=== PATIENT | female | born 1945 | race Caucasian/White ===

== ENCOUNTER 2016-10-07 15:41 | Inpatient (IN) | payer MEDICARE, MEDICAID ==
[~2016-10-07] VITALS: Ht 165.1 cm; Wt 99.8 kg
[2016-10-07 16:09] LABS: BASOPHILS % (AUTO) 0.5 % (0.0-2.0); LYMPHOCYTES % (AUTO) 21.5 % (20.0-45.0); MEAN CORPUSCULAR HEMOGLOBIN 28.9 PG (27.0-31.0); MEAN CORPUSCULAR HGB CONC 31.8 G/DL (32.0-36.0); MEAN CORPUSCULAR VOLUME 91 FL (80-99); MEAN PLATELET VOLUME 7.1 FL (6.5-10.1); MONOCYTES % (AUTO) 10.6 % (1.0-10.0); NEUTROPHILS % (AUTO) 67.5 % (45.0-75.0); PLATELET COUNT 147 K/UL (150-450); WHITE BLOOD COUNT 8.7 K/UL (4.8-10.8)
[2016-10-07 16:15] VITALS: BP 106/54
--- NOTE | 2016-10-07 16:15 | Emergency Room Report ---
History of Present Illness General Chief Complaint: Dyspnea/Respdistress Source: Patient, Medical Record, EMS Present Illness HPI This patient is brought in by EMS from a custodial facility. She presents for coughing and apparently she had a desaturation at the senior living. The patient complains of an ongoing cough. There is no fever or chills. There is no nausea or vomiting. There is no chest pain. Patient does have a history of schizoaffective, type 2 diabetes, schizophrenia. There is no other history available. Allergies: Coded Allergies: PENICILLINS (Verified Allergy, Unknown, 10/07/16) Patient History Past Medical History: see triage record, DM, HTN, psych hx Social History: Denies: alcohol use, drug use, smoking Reviewed Nursing Documentation: PMH: Agreed, PSxH: Agreed Nursing Documentation-PMH Hx Hypertension: Yes Hx Diabetes: Yes History Of Psychiatric Problem: Yes - Schizoaffective, paranoidschizophrenia Review of Systems All Other Systems: negative except mentioned in HPI Physical Exam Vital Signs Date Time Temp Pulse Resp B/P Pulse Ox O2 Delivery O2 Flow Rate FiO2 10/07/16 15:35 98.4 132 24 119/72 96 Nasal Cannula 4.0 Sp02 EP Interpretation: reviewed, abnormal General Appearance: no apparent distress, alert, GCS 15, non-toxic Head: normocephalic, atraumatic Eyes: bilateral eye PERRL, bilateral eye normal inspection ENT: hearing grossly normal, normal pharynx, no angioedema, normal voice Neck: full range of motion, supple/symm/no masses Respiratory: chest non-tender, lungs clear, normal breath sounds, speaking full sentences Cardiovascular #1: no edema, tachycardia Gastrointestinal: normal bowel sounds, non tender, soft, non-distended, no guarding, no rebound Rectal: deferred Musculoskeletal: back normal, normal range of motion, non-tender Neurologic: alert, oriented x3, responsive, motor strength/tone normal, speech normal Psychiatric: mood/affect normal, no suicidal/homicidal ideation Skin: normal color, no rash, warm/dry, well hydrated Medical Decision Making Diagnostic Impression: Primary Impression: Elevated troponin Additional Impression: NSTEMI (non-ST elevated myocardial infarction) ER Course This patient presents with complaint of cough. However, the custodial facility was concerned about low oxygen saturation and difficulty breathing. Patient is found to be slightly tachycardic. She did not have any desaturations or evidence of respiratory distress. However, she did have an elevated troponin. She was given aspirin. Chest x-ray did not show any evidence of pathology. Laboratory workup only showed the elevated troponin and no elevated white blood cell count. Although the patient complained of cough, there is no evidence of pneumonia. Given the tachycardia, possible oxygen desaturation and history of possible difficulty breathing, I felt I should obtain a CT chest to assess for PE. CT showed no e/o PE. She is admitted for NSTEMI. Labs Test 10/07/16 15:55 10/07/16 16:52 White Blood Count 8.7 K/UL (4.8-10.8) Red Blood Count 4.30 M/UL (4.20-5.40) Hemoglobin 12.5 G/DL (12.0-16.0) Hematocrit 39.2 % (37.0-47.0) Mean Corpuscular Volume 91 FL (80-99) Mean Corpuscular Hemoglobin 28.9 PG (27.0-31.0) Mean Corpuscular Hemoglobin Concent 31.8 G/DL (32.0-36.0) Red Cell Distribution Width 13.0 % (11.6-14.8) Platelet Count 147 K/UL (150-450) Mean Platelet Volume 7.1 FL (6.5-10.1) Neutrophils (%) (Auto) 67.5 % (45.0-75.0) Lymphocytes (%) (Auto) 21.5 % (20.0-45.0) Monocytes (%) (Auto) 10.6 % (1.0-10.0) Eosinophils (%) (Auto) 0.0 % (0.0-3.0) Basophils (%) (Auto) 0.5 % (0.0-2.0) Prothrombin Time 10.2 SEC (9.30-11.50) Prothromb Time International Ratio 1.0 (0.9-1.1) Activated Partial Thromboplast Time 26 SEC (23-33) Sodium Level 145 mEQ/L (135-145) Potassium Level 3.8 mEQ/L (3.4-4.9) Chloride Level 103 mEQ/L (98-107) Carbon Dioxide Level 27 mEQ/L (20-30) Anion Gap 15 (5-15) Blood Urea Nitrogen 26 mg/dL (7-23) Creatinine 0.9 mg/dL (0.5-0.9) Estimat Glomerular Filtration Rate > 60 mL/min (>60) Glucose Level 110 mg/dL (74-106) Calcium Level 8.7 mg/dL (8.6-10.2) Total Bilirubin 0.3 mg/dL (0.0-1.2) Aspartate Amino Transf (AST/SGOT) 21 U/L (5-40) Alanine Aminotransferase (ALT/SGPT) 18 U/L (3-33) Alkaline Phosphatase 62 U/L (35-104) Total Creatine Kinase 226 U/L (26-140) Creatine Kinase MB 2.9 ng/mL (< 3.8) Creatine Kinase MB Relative Index 1.2 Troponin I 0.88 ng/mL (<=0.30) Pro-B-Type Natriuretic Peptide 356 pg/mL (0-125) Total Protein 6.1 g/dL (6.6-8.7) Albumin 3.7 g/dL (3.5-5.2) Globulin 2.4 g/dL Albumin/Globulin Ratio 1.5 (1.0-2.7) Thyroid Stimulating Hormone (TSH) 1.270 uIU/mL (0.300-4.500) Free Thyroxine 0.84 ng/dL (0.86-1.85) Free Triiodothyronine 1.9 pg/mL (2.3-4.2) Urine Color Yellow Urine Appearance Clear Urine pH 5 (4.5-8.0) Urine Specific [place] 1.020 (1.005-1.035) Urine Protein 2+ (NEGATIVE) Urine Glucose (UA) Negative (NEGATIVE) Urine Ketones 1+ (NEGATIVE) Urine Occult Blood Negative (NEGATIVE) Urine Nitrite Negative (NEGATIVE) Urine Bilirubin Negative (NEGATIVE) Urine Urobilinogen Normal MG/DL (0.0-1.0) Urine Leukocyte Esterase Negative (NEGATIVE) Urine RBC 0-2 /HPF (0 - 2) Urine WBC 0-2 /HPF (0 - 2) Urine Squamous Epithelial Cells None /LPF (NONE/OCC) Urine Amorphous Sediment Few /LPF (NONE) Urine Bacteria Few /HPF (NONE) EKG Diagnostic Results Rate: tachycardiac ST Segments: no acute changes Other Impression S.tachycardia Rhythm Strip Diag. Results EP Interpretation: yes Rate: 120's Rhythm: no PVC's, no ectopy Other Impression S.tachycardia Chest X-Ray Diagnostic Results EP Interpretation: Yes Findings: no consolidation, no effusion, no pneumothorax, no acute cardiopulmonary disease Number of Views: 1 Other Impression limited by low inspiration. CT/MRI/US Diagnostic Results CT/MRI/US Diagnostic Results : Imaging Test Ordered: CT chest Impression No PE. See official report in EMR. Last Vital Signs Date Time Temp Pulse Resp B/P Pulse Ox O2 Delivery O2 Flow Rate FiO2 10/07/16 15:35 98.4 132 24 119/72 96 Nasal Cannula 4.0 Disposition: ADMITTED INPATIENT Condition: Serious Referrals: Daniel Hamlin MD (PCP) LEONARDO RIVERA D.O. Oct 07, 2016 16:15
[2016-10-07 16:16] LABS: PROTHROMBIN TIME 10.2 SEC (9.30-11.50)
[2016-10-07 16:34] LABS: ALANINE AMINOTRANSFERASE 18 U/L (3-33); ALBUMIN/GLOBULIN RATIO 1.5 (1.0-2.7); ANION GAP 15 (5-15); ASPARTATE AMINO TRANSFERASE 21 U/L (5-40); CALCIUM 8.7 mg/dL (8.6-10.2); CARBON DIOXIDE 27 mEQ/L (20-30); CHLORIDE 103 mEQ/L (98-107); CREATININE 0.9 mg/dL (0.5-0.9); GLOMERULAR FILTRATION RATE > 60 mL/min (>60); HEMOLYSIS 18; POTASSIUM 3.8 mEQ/L (3.4-4.9); SODIUM 145 mEQ/L (135-145); TOTAL PROTEIN 6.1 g/dL (6.6-8.7)
[2016-10-07 16:35] LABS: TROPONIN I 0.88 ng/mL (<=0.30)
[2016-10-07 16:45] LABS: CKMB 2.9 ng/mL (< 3.8)
[2016-10-07 17:06] LABS: FREE T3 1.9 pg/mL (2.3-4.2); THYROID STIMULATING HORMONE 1.27 uIU/mL (0.300-4.500)
[2016-10-07] MEDS ORDERED: Aspirin Baby 81mg ORAL ONE (17:15)
[2016-10-07 17:23] LABS: APPEARANCE,URINE CLEAR; KETONES,URINE 1+ (NEGATIVE); LEUKOCYTE ESTERASE ,URINE NEGATIVE (NEGATIVE); NITRITE,URINE NEGATIVE (NEGATIVE); PH,URINE 5 (4.5-8.0); PROTEIN,URINE 2+ (NEGATIVE); UROBILINOGEN,URINE NORMAL MG/DL (0.0-1.0)
[2016-10-07 17:33] LABS: RBC,URINE 0-2 /HPF (0 - 2); WBC,URINE 0-2 /HPF (0 - 2)
[2016-10-07 17:36] LABS: AMORPHOUS SEDIMENT,UR FEW /LPF; BACTERIA,URINE FEW /HPF
[2016-10-07] MEDS ORDERED: ATORVASTATIN CA20 MG ORAL (18:24)
[2016-10-07] MEDS ORDERED: LEVOTHYROXINE75 MCG ORAL (18:24)
[2016-10-07] MEDS ORDERED: QUETIAPINE FUMA25 MG ORAL (18:24)
[2016-10-07] MEDS ORDERED: COLACE100 MG ORAL (18:24)
[2016-10-07] MEDS ORDERED: NEURONTIN400 MG ORAL (18:24)
[2016-10-07] MEDS ORDERED: LISINOPRIL10 MG ORAL (18:24)
[2016-10-07] MEDS ORDERED: DEPAKOTE250 MG PO (18:24)
[2016-10-07 18:27] VITALS: BP 110/61
[2016-10-07 20:00] VITALS: BP 117/70
[2016-10-07] MEDS ORDERED: Nitroglycerin Subl 0.4mg tab (Bottle Of 25) SL PRN (20:30)
[2016-10-07 22:00] LABS: BASOPHILS % (AUTO) 0.6 % (0.0-2.0); LYMPHOCYTES % (AUTO) 25.2 % (20.0-45.0); MEAN CORPUSCULAR HEMOGLOBIN 28.6 PG (27.0-31.0); MEAN CORPUSCULAR HGB CONC 30.5 G/DL (32.0-36.0); MEAN CORPUSCULAR VOLUME 94 FL (80-99); MEAN PLATELET VOLUME 6.9 FL (6.5-10.1); MONOCYTES % (AUTO) 12.3 % (1.0-10.0); NEUTROPHILS % (AUTO) 61.9 % (45.0-75.0); PLATELET COUNT 131 K/UL (150-450); RED BLOOD COUNT 3.99 M/UL (4.20-5.40); RED CELL DISTRIBUTION WIDTH 13.5 % (11.6-14.8); WHITE BLOOD COUNT 8.9 K/UL (4.8-10.8)
[2016-10-07] MEDS ORDERED: Heparin 5000 units/ml inj SUBQ SCH (22:00)
[2016-10-07 22:19] LABS: ALANINE AMINOTRANSFERASE 15 U/L (3-33); ALBUMIN/GLOBULIN RATIO 1.6 (1.0-2.7); ANION GAP 13 (5-15); ASPARTATE AMINO TRANSFERASE 23 U/L (5-40); CALCIUM 7.7 mg/dL (8.6-10.2); CARBON DIOXIDE 26 mEQ/L (20-30); CHLORIDE 107 mEQ/L (98-107); CREATININE 0.7 mg/dL (0.5-0.9); GLOMERULAR FILTRATION RATE > 60 mL/min (>60); HEMOLYSIS 60; POTASSIUM 4.1 mEQ/L (3.4-4.9); SODIUM 146 mEQ/L (135-145); TOTAL PROTEIN 5.1 g/dL (6.6-8.7)
[2016-10-07 22:22] LABS: TROPONIN I 0.62 ng/mL (<=0.30)
[2016-10-07] MEDS: Atorvastatin 20mg tab ORAL SCH (22:47)
--- NOTE | 2016-10-07 22:47 | Cardiology Progress Note ---
Assessment/Plan Status Narrative Cardiology consultation was made at the request of Dr. Hamlin on Oct 07, 2016. 1. NSTEMI, although CKMB are negative, awaiting the second trop levels, ASA 81, Lovenox 1mg/kg bid, atorvastatin 20 and metoprolol 2. Dyspnea with decrease O2, CXR and CT scan of chest were both negative, 12 lead ECG in am. Thi Jarquin M.D. Objective Last 24 Hour Vital Signs Date Time Temp Pulse Resp B/P Pulse Ox O2 Delivery O2 Flow Rate FiO2 10/07/16 20:00 97.9 82 16 117/70 97 Room Air 10/07/16 18:35 98.6 79 18 110/61 96 Nasal Cannula 2.0 10/07/16 18:27 98.6 79 18 110/61 96 Nasal Cannula 2.0 10/07/16 16:15 98.6 19 19 106/54 95 Nasal Cannula 2.0 10/07/16 16:13 132 24 Nasal Cannula 4.0 10/07/16 15:35 98.4 132 24 119/72 96 Nasal Cannula 4.0 Laboratory Tests Test 10/07/16 15:55 10/07/16 16:52 10/07/16 21:25 White Blood Count 8.7 K/UL (4.8-10.8) 8.9 K/UL (4.8-10.8) Red Blood Count 4.30 M/UL (4.20-5.40) 3.99 M/UL (4.20-5.40) L Hemoglobin 12.5 G/DL (12.0-16.0) 11.4 G/DL (12.0-16.0) L Hematocrit 39.2 % (37.0-47.0) 37.4 % (37.0-47.0) Mean Corpuscular Volume 91 FL (80-99) 94 FL (80-99) Mean Corpuscular Hemoglobin 28.9 PG (27.0-31.0) 28.6 PG (27.0-31.0) Mean Corpuscular Hemoglobin Concent 31.8 G/DL (32.0-36.0) L 30.5 G/DL (32.0-36.0) L Red Cell Distribution Width 13.0 % (11.6-14.8) 13.5 % (11.6-14.8) Platelet Count 147 K/UL (150-450) L 131 K/UL (150-450) L Mean Platelet Volume 7.1 FL (6.5-10.1) 6.9 FL (6.5-10.1) Neutrophils (%) (Auto) 67.5 % (45.0-75.0) 61.9 % (45.0-75.0) Lymphocytes (%) (Auto) 21.5 % (20.0-45.0) 25.2 % (20.0-45.0) Monocytes (%) (Auto) 10.6 % (1.0-10.0) H 12.3 % (1.0-10.0) H Eosinophils (%) (Auto) 0.0 % (0.0-3.0) 0.0 % (0.0-3.0) Basophils (%) (Auto) 0.5 % (0.0-2.0) 0.6 % (0.0-2.0) Prothrombin Time 10.2 SEC (9.30-11.50) Prothromb Time International Ratio 1.0 (0.9-1.1) Activated Partial Thromboplast Time 26 SEC (23-33) Sodium Level 145 mEQ/L (135-145) 146 mEQ/L (135-145) H Potassium Level 3.8 mEQ/L (3.4-4.9) 4.1 mEQ/L (3.4-4.9) Chloride Level 103 mEQ/L (98-107) 107 mEQ/L (98-107) Carbon Dioxide Level 27 mEQ/L (20-30) 26 mEQ/L (20-30) Anion Gap 15 (5-15) 13 (5-15) Blood Urea Nitrogen 26 mg/dL (7-23) H 21 mg/dL (7-23) Creatinine 0.9 mg/dL (0.5-0.9) 0.7 mg/dL (0.5-0.9) Estimat Glomerular Filtration Rate > 60 mL/min (>60) > 60 mL/min (>60) Glucose Level 110 mg/dL (74-106) H 93 mg/dL (74-106) Calcium Level 8.7 mg/dL (8.6-10.2) 7.7 mg/dL (8.6-10.2) L Total Bilirubin 0.3 mg/dL (0.0-1.2) 0.2 mg/dL (0.0-1.2) Aspartate Amino Transf (AST/SGOT) 21 U/L (5-40) 23 U/L (5-40) Alanine Aminotransferase (ALT/SGPT) 18 U/L (3-33) 15 U/L (3-33) Alkaline Phosphatase 62 U/L (35-104) 56 U/L (35-104) Total Creatine Kinase 226 U/L (26-140) H Creatine Kinase MB 2.9 ng/mL (< 3.8) Creatine Kinase MB Relative Index 1.2 Troponin I 0.88 ng/mL (<=0.30) *H 0.62 ng/mL (<=0.30) *H Pro-B-Type Natriuretic Peptide 356 pg/mL (0-125) H Total Protein 6.1 g/dL (6.6-8.7) L 5.1 g/dL (6.6-8.7) L Albumin 3.7 g/dL (3.5-5.2) 3.2 g/dL (3.5-5.2) L Globulin 2.4 g/dL 1.9 g/dL Albumin/Globulin Ratio 1.5 (1.0-2.7) 1.6 (1.0-2.7) Thyroid Stimulating Hormone (TSH) 1.270 uIU/mL (0.300-4.500) Free Thyroxine 0.84 ng/dL (0.86-1.85) L Free Triiodothyronine 1.9 pg/mL (2.3-4.2) L Urine Color Yellow Urine Appearance Clear Urine pH 5 (4.5-8.0) Urine Specific [place] 1.020 (1.005-1.035) Urine Protein 2+ (NEGATIVE) H Urine Glucose (UA) Negative (NEGATIVE) Urine Ketones 1+ (NEGATIVE) H Urine Occult Blood Negative (NEGATIVE) Urine Nitrite Negative (NEGATIVE) Urine Bilirubin Negative (NEGATIVE) Urine Urobilinogen Normal MG/DL (0.0-1.0) Urine Leukocyte Esterase Negative (NEGATIVE) Urine RBC 0-2 /HPF (0 - 2) Urine WBC 0-2 /HPF (0 - 2) Urine Squamous Epithelial Cells None /LPF (NONE/OCC) Urine Amorphous Sediment Few /LPF (NONE) H Urine Bacteria Few /HPF (NONE) THI JARQUIN Oct 07, 2016 22:47
[2016-10-07] MEDS: NovoLOG Insulin Flexpen SUBQ SCH (22:49)
[2016-10-08] VITALS: BP 132/70
[2016-10-08] MEDS: Metoprolol 25mg tab ORAL SCH ×3 (00:23→20:10)
[2016-10-08] MEDS: Enoxaparin 100mg Inj SUBQ SCH ×2 (00:24→12:00)
[2016-10-08 04:00] VITALS: BP 126/73
[2016-10-08 05:54] LABS: TROPONIN I 0.79 ng/mL (<=0.30)
[2016-10-08] MEDS: NovoLOG Insulin Flexpen SUBQ SCH ×4 (06:12→21:45)
[2016-10-08] MEDS: Aspirin EC 81mg tab ORAL SCH (08:22)
[2016-10-08] MEDS: Lisinopril 10mg tab ORAL SCH (08:23)
[2016-10-08] MEDS: Docusate 100mg cap ORAL SCH (08:24)
[2016-10-08 08:28] VITALS: BP 147/77
[2016-10-08] MEDS ORDERED: Lisinopril 10mg tab ORAL SCH ×2 (09:00)
[2016-10-08 09:26] LABS: CHOLESTEROL/HDL RATIO 2.5 (3.3-4.4)
[2016-10-08 09:36] LABS: THYROID STIMULATING HORMONE 4.05 uIU/mL (0.300-4.500)
[2016-10-08 11:33] VITALS: BP 125/94
--- NOTE | 2016-10-08 12:39 | History & Physical ---
History and Physical History & Physicial seen and examined. dictation in progress Daniel Hamlin MD Oct 08, 2016 12:39
--- NOTE | 2016-10-08 12:44 | General Progress Note ---
Assessment/Plan Status: stable Assessment/Plan 1- NSTEMI 2- Gross Hematuria 3- Psych d/o 4- Multiple joint OA 5- GI/DVT prophylaxia Plan: Urology, psych Cardiology are notified and follow HH and type and cross match is requested Subjective ROS Limited/Unobtainable: No Constitutional: Reports: other - my folet hurts HEENT: Reports: no symptoms Cardiovascular: Reports: no symptoms Respiratory: Reports: no symptoms Gastrointestinal/Abdominal: Reports: no symptoms Genitourinary: Reports: no symptoms Allergies: Coded Allergies: PENICILLINS (Verified Allergy, Unknown, 10/07/16) Objective Last 24 Hour Vital Signs Date Time Temp Pulse Resp B/P Pulse Ox O2 Delivery O2 Flow Rate FiO2 10/08/16 11:33 97.3 90 20 125/94 95 Nasal Cannula 2.0 10/08/16 08:28 97.3 94 20 147/77 96 Nasal Cannula 2.0 10/08/16 08:23 95 147/77 10/08/16 08:23 147/77 10/08/16 07:53 101 10/08/16 04:00 91 10/08/16 04:00 97.9 91 20 126/73 94 Room Air 10/08/16 00:23 100 132/70 10/08/16 00:00 98.1 100 18 132/70 95 Nasal Cannula 2.0 10/08/16 00:00 110 10/07/16 20:00 97.9 82 16 117/70 97 Room Air 10/07/16 20:00 103 10/07/16 18:35 98.6 79 18 110/61 96 Nasal Cannula 2.0 10/07/16 18:27 98.6 79 18 110/61 96 Nasal Cannula 2.0 10/07/16 16:15 98.6 19 19 106/54 95 Nasal Cannula 2.0 10/07/16 16:13 132 24 Nasal Cannula 4.0 10/07/16 15:35 98.4 132 24 119/72 96 Nasal Cannula 4.0 Intake and Output 10/07/16 10/08/16 19:00 07:00 Intake Total 3000 ml 240 ml Output Total 303 ml Balance 3000 ml -63 ml Intake Oral 240 ml IV Total 3000 ml Output Urine Total 303 ml Laboratory Tests 10/07/16 15:55: White Blood Count 8.7, Red Blood Count 4.30, Hemoglobin 12.5, Hematocrit 39.2, Mean Corpuscular Volume 91, Mean Corpuscular Hemoglobin 28.9, Mean Corpuscular Hemoglobin Concent 31.8L, Red Cell Distribution Width 13.0, Platelet Count 147L , Mean Platelet Volume 7.1, Neutrophils (%) (Auto) 67.5, Lymphocytes (%) (Auto) 21.5, Monocytes (%) (Auto) 10.6H, Eosinophils (%) (Auto) 0.0, Basophils (%) ( Auto) 0.5, Prothrombin Time 10.2, Prothromb Time International Ratio 1.0, Activated Partial Thromboplast Time 26, Sodium Level 145, Potassium Level 3.8, Chloride Level 103, Carbon Dioxide Level 27, Anion Gap 15, Blood Urea Nitrogen 26H, Creatinine 0.9, Estimat Glomerular Filtration Rate > 60, Glucose Level 110H , Calcium Level 8.7, Total Bilirubin 0.3, Aspartate Amino Transf (AST/SGOT) 21, Alanine Aminotransferase (ALT/SGPT) 18, Alkaline Phosphatase 62, Total Creatine Kinase 226H, Creatine Kinase MB 2.9, Creatine Kinase MB Relative Index 1.2, Troponin I 0.88*H, Pro-B-Type Natriuretic Peptide 356H, Total Protein 6.1L, Albumin 3.7, Globulin 2.4, Albumin/Globulin Ratio 1.5, Thyroid Stimulating Hormone (TSH) 1.270, Free Thyroxine 0.84L, Free Triiodothyronine 1.9L 10/07/16 16:52: Urine Color Yellow, Urine Appearance Clear, Urine pH 5, Urine Specific [place] 1.020, Urine Protein 2+H, Urine Glucose (UA) Negative, Urine Ketones 1+H, Urine Occult Blood Negative, Urine Nitrite Negative, Urine Bilirubin Negative, Urine Urobilinogen Normal, Urine Leukocyte Esterase Negative, Urine RBC 0-2, Urine WBC 0-2, Urine Squamous Epithelial Cells None, Urine Amorphous Sediment FewH, Urine Bacteria Few 10/07/16 21:25: White Blood Count 8.9, Red Blood Count 3.99L, Hemoglobin 11.4L, Hematocrit 37.4 , Mean Corpuscular Volume 94, Mean Corpuscular Hemoglobin 28.6, Mean Corpuscular Hemoglobin Concent 30.5L, Red Cell Distribution Width 13.5, Platelet Count 131L, Mean Platelet Volume 6.9, Neutrophils (%) (Auto) 61.9, Lymphocytes (%) (Auto) 25.2, Monocytes (%) (Auto) 12.3H, Eosinophils (%) (Auto) 0.0, Basophils (%) (Auto) 0.6, Sodium Level 146H, Potassium Level 4.1, Chloride Level 107, Carbon Dioxide Level 26, Anion Gap 13, Blood Urea Nitrogen 21, Creatinine 0.7, Estimat Glomerular Filtration Rate > 60, Glucose Level 93, Calcium Level 7.7L, Total Bilirubin 0.2, Aspartate Amino Transf (AST/SGOT) 23, Alanine Aminotransferase (ALT/SGPT) 15, Alkaline Phosphatase 56, Troponin I 0.62 *H, Total Protein 5.1L, Albumin 3.2L, Globulin 1.9, Albumin/Globulin Ratio 1.6 10/08/16 04:25: Troponin I 0.79*H, Thyroid Stimulating Hormone (TSH) 4.050, Triglycerides Level 112, Cholesterol Level 122, LDL Cholesterol 51L, HDL Cholesterol 49, Cholesterol /HDL Ratio 2.5L 10/08/16 12:30: Troponin I [Pending] Height (Feet): 5 Height (Inches): 5.00 Weight (Pounds): 220 General Appearance: WD/WN EENT: PERRL/EOMI Neck: supple Cardiovascular: normal rate Respiratory/Chest: lungs clear Abdomen: soft Extremities: other - decreased ROM of knees. Neurologic: conference manager II-XII grossly normal Daniel Hamlin MD Oct 08, 2016 12:44
[2016-10-08 13:27] LABS: TROPONIN I 0.53 ng/mL (<=0.30)
--- NOTE | 2016-10-08 13:35 | Diagnostic Imaging Report ---
ndication: Shortness of breath Technique: IV administration nonionic contrast. Spiral acquisitions obtained from the lung bases to the lung apices. Multiplanar and 3-D reconstructions were generated. Total dose length product 72 mGycm. CTDIvol(s) 12, 12, 20 mGy Comparison: None Findings: Pulmonary artery opacification is suboptimal. In addition, there is significant image degradation due to respiratory motion artifact. Small peripheral emboli could be missed. No gross large vessel central pulmonary emboli. No evidence of thoracic aortic aneurysm or dissection. Normal caliber pulmonary arteries. No evidence of right ventricular dilatation. The lungs demonstrate consolidation at the left lung base, and dependent atelectatic changes at both lung bases. There is questionably some groundglass opacity bilaterally, although this could be to some extent artifactual due to respiratory motion. No definite masses, effusions, or nodules. There is a masslike opacity between the dome of the liver and the heart which is probably just unopacified inferior vena cava The heart is upper limits of normal in size. No pericardial effusion. No mediastinal or hilar mass or adenopathy. There are bilateral subcentimeter low-attenuation nodules within the thyroid. No axillary or chest wall mass or adenopathy. There is a a 19 mm arterial phase enhancing lesion in the dome of the right hepatic lobe, segment 8. The remainder of the visualized upper abdominal anatomy is unremarkable. Impression: Limited exam, as described. No gross evidence of large vessel central pulmonary emboli Lateral basilar atelectatic changes and possible left basilar consolidation Masslike opacity inferomedial right hemithorax, probably just a prominent unopacified suprahepatic inferior vena cava 19 mm arterial phase enhancing lesion in the dome of the right lobe of the liver. Dedicated hepatic CT or MRI is recommended for better characterization Subcentimeter low-attenuation thyroid nodules. No further followup necessary This agrees with the preliminary interpretation provided overnight by Dr. Vaz The CT scanner at [facility] is accredited by the [employer] and the scans are performed using protocols designed to limit radiation exposure to as low as reasonably achievable to attain images of sufficient resolution adequate for diagnostic evaluation.
--- NOTE | 2016-10-08 13:35 | Diagnostic Imaging Report ---
Indication: Abdominal pain Technique: Supine view of the abdomen Comparison: none Findings: Unremarkable bowel gas pattern. Shukla catheter is seen within the bladder. No unusual masses or calcifications. The included lung bases are clear. Impression: Shukla catheter. No acute process
--- NOTE | 2016-10-08 13:35 | Diagnostic Imaging Report ---
Indication: SOB Technique: One view of the chest Comparison: none Findings: Inspiration is suboptimal. There is bilateral basilar atelectasis. Is minimal thickening of the minor fissure on the right. The heart size is normal. No definite infiltrates, effusions, or congestion Impression: Possible minimal fluid within the right minor fissure. Hypoventilatory exam Otherwise unremarkable This agrees with the preliminary interpretation provided overnight by Dr. Vaz
--- NOTE | 2016-10-08 15:17 | Cardiology Report ---
APPROVED REPORT EXAM: Two-dimensional and M-mode echocardiogram with Doppler and color Doppler. INDICATION Chest Pain M-Mode DIMENSIONS IVSd0.7 (0.7-1.1cm)Aortic Root2.7 (2.0-3.7cm) LVDd5.2 (3.5-5.6cm)Aortic Cusp Exc.1.6 (1.5-2.0cm) IVSs1.1 cm LVDs3.6 (2.5-4.0cm) PWs0.9 cm Normal left ventricular chamber size, systolic function and wall motion. Left ventricular ejection fraction estimated to be 60-65 %. Mild left ventricular hypertrophy. No evidence of pericardial fat or effusion. Mild bi-atrial enlargement by 2D. Focal aortic valve sclerosis with adequate cusp excursion Thickened mitral valve leaflets with normal excursion. Mild mitral annulus and aortic root calcification. Pulmonic valve not well visualized. Normal tricuspid valve structure. IVC is normal in size with physiologic collapse. A color flow and spectral Doppler study was performed and revealed: No aortic regurgitation. Trace mitral regurgitation. Left ventricular diastolic dysfunction grade 1. Moderate tricuspid regurgitation. Tricuspid systolic velocities suggests peak right ventricular systolic pressure of 27 mmHg
[2016-10-08 16:00] VITALS: BP 152/80
--- NOTE | 2016-10-08 16:29 | History and Physical Report ---
DATE OF ADMISSION: 10/07/2016 SOURCE OF INFORMATION: The patient and EMR. HISTORY OF PRESENT ILLNESS: The patient is a 70-year-old female with history of hypothyroidism, hypertension, and diabetes who presented with increased shortness of breath. At the time of evaluation, the patient is complaining of mild shortness of breath. Otherwise, denies any chest pain. Denies any diarrhea, constipation, nausea, or vomitus. No severe pain in the extremities. No severe headache. PAST SURGICAL HISTORY: Hysterectomy. PAST MEDICAL HISTORY: Hyperlipidemia, psychiatric disorder, hypothyroidism, and hypertension. HOSPITAL MEDICATIONS: Aspirin, atorvastatin, Depakote, Lovenox, and sliding scale insulin. CODE STATUS: Full code. ALLERGIES: To penicillin. SOCIAL HISTORY: The patient denies history of illicit drug abuse, smoking, or alcohol abuse. The patient is currently resident of a assisted facility. FAMILY HISTORY: Reviewed and noncontributory. PHYSICAL EXAMINATION: VITAL SIGNS: Blood pressure 110/60, temperature 98.2, pulse oximetry 96% on 2 liters of oxygen, and temperature 98.6. HEAD AND NECK: Atraumatic and normocephalic. Chest is clear to auscultation. HEART: S1 and S2. Regular rate and rhythm. ABDOMEN: Soft. No organomegaly. MUSCULOSKELETAL: No gross lateralized motor deficit. NEUROLOGIC: The patient is awake, alert, and oriented x2. Positive for dementia. Positive for unorganized thinking process. LABORATORY DATA: WBC 8.7, hemoglobin 12.5, and platelets 147,000. Sodium 146, potassium 4.1, BUN 21, and creatinine 0.7. Troponin 0.6. TSH 1.2. LDL 51. Urinalysis is unremarkable. IMAGING: Official report is pending. This is a preliminary report. Negative for any acute pulmonary process. ASSESSMENT: 1. Non-ST segment elevation myocardial infarction (until proven otherwise). 2. Hypertension. 3. Hypothyroidism. 4. Hyperlipidemia. 5. Anxiety/depression. 6. Gross hematuria. 7. Gastrointestinal and deep vein thrombosis prophylaxes. PLAN OF CARE: Risks and benefits of continuation of anticoagulation will be discussed with the Cardiology. Urology, Dr. Hill, notified. Dr. Jarquin has been already on board and the case has been discussed with him. Dr. Sun, psychiatrist, is notified and would see the patient. Daniel Hamlin M.D. DR: WESTON JOB#: [id number] CC:
[2016-10-08 16:48] LABS: BASOPHILS % (AUTO) 0.6 % (0.0-2.0); EOSINOPHILS % (AUTO) 1.2 % (0.0-3.0); LYMPHOCYTES % (AUTO) 29.8 % (20.0-45.0); MEAN CORPUSCULAR HEMOGLOBIN 30.5 PG (27.0-31.0); MEAN CORPUSCULAR HGB CONC 33.7 G/DL (32.0-36.0); MEAN CORPUSCULAR VOLUME 91 FL (80-99); MEAN PLATELET VOLUME 7.3 FL (6.5-10.1); MONOCYTES % (AUTO) 12.1 % (1.0-10.0); NEUTROPHILS % (AUTO) 56.4 % (45.0-75.0); PLATELET COUNT 132 K/UL (150-450); WHITE BLOOD COUNT 5.3 K/UL (4.8-10.8)
[2016-10-08 20:00] VITALS: BP 163/101
[2016-10-08] MEDS: Atorvastatin 20mg tab ORAL SCH (20:09)
[2016-10-08] MEDS ORDERED: Loperamide 2mg cap ORAL PRN (21:45)
--- NOTE | 2016-10-08 21:49 | Consultation ---
DATE OF CONSULTATION: 10/08/2016 CONSULTING PHYSICIAN: Chao Hill M.D. REFERRING PHYSICIAN: Daniel Hamlin M.D. REASON FOR CONSULTATION: For evaluation of hematuria. HISTORY OF PRESENT ILLNESS: This is a 70-year-old female, who was admitted to the hospital because of shortness of breath. She is a resident of a longterm. Shukla catheter was placed at time of admission, and gross hematuria has been noted. According to the nursing staff, there was some difficulty with insertion of the Shukla and it appears that the bleeding started after the Shukla insertion. The nurses have irrigated the Shukla catheter, it is slowly clearing. PAST MEDICAL HISTORY: Significant for history of hypothyroidism, hypertension, diabetes, and psychiatric disorder. PAST SURGICAL HISTORY: She has had a hysterectomy. CURRENT MEDICATIONS: Here in the hospital, the patient is on Protonix, Colace, Ecotrin, Zestril, Synthroid, Lovenox, Lopressor, Lipitor, Seroquel, Depakote, NovoLog, and nitroglycerin. ALLERGIES: Penicillin. SOCIAL HISTORY: She is a resident of a longterm. Apparently, she is currently a nonsmoker. FAMILY HISTORY: Noncontributory. REVIEW OF SYSTEMS: No chest pain. PHYSICAL EXAMINATION: GENERAL: An elderly female, in no acute distress. VITAL SIGNS: Temperature is 97.7 degrees, blood pressure 152/80, pulse 91, and respirations 20. HEENT: Normocephalic. NECK: Supple. ABDOMEN: Soft. BACK: No CVA tenderness. There is a lower abdominal scar that is well healed. GENITOURINARY: Shukla catheter in place. A 16-[place] urine tubing is clearing. EXTREMITIES: No clubbing or cyanosis. LABORATORY DATA: UA showed 2+ protein and 1+ ketones. This was the admit UA from yesterday. White count is 5.3, hemoglobin 11.6, and platelets are 132,000. BUN is 21, creatinine 0.7, and potassium 4.1. DIAGNOSTIC IMAGING STUDIES: There are no renal imaging studies. She did have a CTA of the chest with contrast and that exam was reviewed. IMPRESSION: 1. Gross hematuria, which is clearing. 2. Urinary retention. 3. Neurogenic bladder. 4. Proteinuria. PLAN AND DISCUSSION: Again as noted above, the patient did have a gross hematuria, which is slowly clearing. There is no evidence of active bleeding and at this time, I would recommend for the catheter to be irrigated on a p.r.n. basis. She can continue with aspirin as ordered. We will consider obtaining an upper tract imaging study and a cystoscopy in the future. I will follow the patient. Any other recommendations will be forthcoming. Thank you, Dr. Hamlin, for asking me to see this patient in consultation. Chao Hill M.D. DR: ERNESTINA JOB#: [id number] CC:
[2016-10-09 00:20] VITALS: BP 138/76
[2016-10-09] MEDS: Enoxaparin 100mg Inj SUBQ SCH (00:27)
[2016-10-09 04:10] LABS: BASOPHILS % (AUTO) 0.7 % (0.0-2.0); LYMPHOCYTES % (AUTO) 24.7 % (20.0-45.0); MEAN CORPUSCULAR HEMOGLOBIN 30.4 PG (27.0-31.0); MEAN CORPUSCULAR HGB CONC 33.5 G/DL (32.0-36.0); MEAN CORPUSCULAR VOLUME 91 FL (80-99); MEAN PLATELET VOLUME 6.9 FL (6.5-10.1); MONOCYTES % (AUTO) 11.5 % (1.0-10.0); NEUTROPHILS % (AUTO) 61.1 % (45.0-75.0); PLATELET COUNT 129 K/UL (150-450); RED BLOOD COUNT 3.83 M/UL (4.20-5.40); RED CELL DISTRIBUTION WIDTH 12.5 % (11.6-14.8); WHITE BLOOD COUNT 5.2 K/UL (4.8-10.8)
[2016-10-09 04:26] VITALS: BP 140/66
[2016-10-09 04:36] LABS: ALANINE AMINOTRANSFERASE 13 U/L (3-33); ALBUMIN/GLOBULIN RATIO 1.2 (1.0-2.7); ANION GAP 10 (5-15); ASPARTATE AMINO TRANSFERASE 17 U/L (5-40); CALCIUM 8.4 mg/dL (8.6-10.2); CARBON DIOXIDE 29 mEQ/L (20-30); CHLORIDE 106 mEQ/L (98-107); CREATININE 0.5 mg/dL (0.5-0.9); GLOMERULAR FILTRATION RATE > 60 mL/min (>60); HEMOLYSIS 5; POTASSIUM 3.7 mEQ/L (3.4-4.9); SODIUM 145 mEQ/L (135-145); TOTAL PROTEIN 5.5 g/dL (6.6-8.7)
[2016-10-09] MEDS: NovoLOG Insulin Flexpen SUBQ SCH ×4 (06:30→22:16)
[2016-10-09 08:00] VITALS: BP 125/79
[2016-10-09] MEDS: Aspirin EC 81mg tab ORAL SCH (09:00)
[2016-10-09] MEDS ORDERED: Metoprolol 25mg tab ORAL SCH (09:00)
[2016-10-09] MEDS: Docusate 100mg cap ORAL SCH (09:00)
[2016-10-09] MEDS: Metoprolol 50mg tab ORAL SCH ×2 (09:36→17:44)
[2016-10-09] MEDS: Lisinopril 10mg tab ORAL SCH (09:36)
--- NOTE | 2016-10-09 09:37 | General Progress Note ---
Assessment/Plan Status: stable Assessment/Plan 1- Abnormal Troponin 2- Gross Hematuria 3- Psych d/o 4- Multiple joint OA 5. Abnormal Imaging finding in chest CT 5- GI/DVT prophylaxia Plan: DC lovenox Stop transfer for cardiac cath for now consult pulmonary Subjective ROS Limited/Unobtainable: No Constitutional: Reports: weakness HEENT: Reports: no symptoms Cardiovascular: Reports: no symptoms Respiratory: Reports: shortness of breath Allergies: Coded Allergies: PENICILLINS (Verified Allergy, Unknown, 10/07/16) Objective Last 24 Hour Vital Signs Date Time Temp Pulse Resp B/P Pulse Ox O2 Delivery O2 Flow Rate FiO2 10/09/16 08:00 96.7 108 18 125/79 96 Nasal Cannula 2.0 10/09/16 04:26 97.7 89 20 140/66 97 Nasal Cannula 2.0 10/09/16 04:00 92 10/09/16 00:20 97.7 83 20 138/76 96 Room Air 10/09/16 00:00 85 10/08/16 20:10 92 163/100 10/08/16 20:00 97.5 92 21 163/101 98 Room Air 10/08/16 19:53 93 10/08/16 16:06 90 10/08/16 16:00 97.7 91 20 152/80 93 Room Air 10/08/16 11:45 93 10/08/16 11:33 97.3 90 20 125/94 95 Nasal Cannula 2.0 Intake and Output 10/08/16 10/09/16 19:00 07:00 Intake Total 360 ml 360 ml Output Total 300 ml 950 ml Balance 60 ml -590 ml Intake Oral 360 ml 360 ml Output Urine Total 300 ml 950 ml # Bowel Movements 9 3 Laboratory Tests 10/08/16 12:30: Troponin I 0.53*H 10/08/16 16:30: White Blood Count 5.3, Red Blood Count 3.80L, Hemoglobin 11.6L, Hematocrit 34.5L , Mean Corpuscular Volume 91, Mean Corpuscular Hemoglobin 30.5, Mean Corpuscular Hemoglobin Concent 33.7, Red Cell Distribution Width 13.0, Platelet Count 132L, Mean Platelet Volume 7.3, Neutrophils (%) (Auto) 56.4, Lymphocytes ( %) (Auto) 29.8, Monocytes (%) (Auto) 12.1H, Eosinophils (%) (Auto) 1.2, Basophils (%) (Auto) 0.6 10/09/16 03:45: White Blood Count 5.2, Red Blood Count 3.83L, Hemoglobin 11.6L, Hematocrit 34.8L , Mean Corpuscular Volume 91, Mean Corpuscular Hemoglobin 30.4, Mean Corpuscular Hemoglobin Concent 33.5, Red Cell Distribution Width 12.5, Platelet Count 129L, Mean Platelet Volume 6.9, Neutrophils (%) (Auto) 61.1, Lymphocytes ( %) (Auto) 24.7, Monocytes (%) (Auto) 11.5H, Eosinophils (%) (Auto) 2.0, Basophils (%) (Auto) 0.7, Sodium Level 145, Potassium Level 3.7, Chloride Level 106, Carbon Dioxide Level 29, Anion Gap 10, Blood Urea Nitrogen 13, Creatinine 0.5, Estimat Glomerular Filtration Rate > 60, Glucose Level 104, Calcium Level 8.4L, Total Bilirubin 0.3, Aspartate Amino Transf (AST/SGOT) 17, Alanine Aminotransferase (ALT/SGPT) 13, Alkaline Phosphatase 63, Total Protein 5.5L, Albumin 3.0L, Globulin 2.5, Albumin/Globulin Ratio 1.2 Height (Feet): 5 Height (Inches): 5.00 Weight (Pounds): 220 General Appearance: WD/WN EENT: PERRL/EOMI Neck: supple Cardiovascular: normal rate Respiratory/Chest: lungs clear Abdomen: soft Extremities: non-tender Neurologic: baster hand II-XII grossly normal, other - anxious Daniel Hamlin MD Oct 09, 2016 09:37
--- NOTE | 2016-10-09 10:03 | Urology Progress Note ---
Assessment/Plan Assessment/Plan 1. Gross hematuria, which is clearing. 2. Urinary retention. 3. Neurogenic bladder. 4. Proteinuria. hand irrigate tidwell PRN f/u on urine cx and renal u/s monitor h/h Subjective Allergies: Coded Allergies: PENICILLINS (Verified Allergy, Unknown, 10/07/16) Subjective all noted Objective Last 24 Hour Vital Signs Date Time Temp Pulse Resp B/P Pulse Ox O2 Delivery O2 Flow Rate FiO2 10/09/16 09:36 95 125/79 10/09/16 09:36 125/79 10/09/16 08:00 96.7 108 18 125/79 96 Nasal Cannula 2.0 10/09/16 04:26 97.7 89 20 140/66 97 Nasal Cannula 2.0 10/09/16 04:00 92 10/09/16 00:20 97.7 83 20 138/76 96 Room Air 10/09/16 00:00 85 10/08/16 20:10 92 163/100 10/08/16 20:00 97.5 92 21 163/101 98 Room Air 10/08/16 19:53 93 10/08/16 16:06 90 10/08/16 16:00 97.7 91 20 152/80 93 Room Air 10/08/16 11:45 93 10/08/16 11:33 97.3 90 20 125/94 95 Nasal Cannula 2.0 Intake and Output 10/08/16 10/09/16 19:00 07:00 Intake Total 360 ml 360 ml Output Total 300 ml 950 ml Balance 60 ml -590 ml Intake Oral 360 ml 360 ml Output Urine Total 300 ml 950 ml # Bowel Movements 9 3 Microbiology Date/Time Source Procedure Growth Status 10/07/16 15:55 Arm Left Blood Culture - Preliminary NO GROWTH AFTER 24 HOURS Resulted Current Medications Medications (Trade) Dose Ordered Sig/[place]ingo Route PRN Reason Start Time Stop Time Status Last Admin Dose Admin Aspirin (Ecotrin) 81 mg DAILY ORAL 10/08/16 09:00 11/07/16 08:59 10/08/16 08:22 Atorvastatin Calcium (Lipitor) 20 mg BEDTIME ORAL 10/07/16 22:30 11/06/16 22:29 10/08/16 20:09 Dextrose (Dextrose 50%) STAT PRN IV Hypoglycemia 10/07/16 21:00 11/06/16 20:59 Divalproex Sodium (Depakote) 250 mg EVERY 12 HOURS ORAL 10/07/16 22:30 11/06/16 22:29 10/09/16 09:36 Docusate Sodium (Colace) 100 mg DAILY ORAL 10/08/16 09:00 11/07/16 08:59 Insulin Aspart (NovoLOG) BEFORE MEALS AND HS SUBQ 10/07/16 22:30 11/06/16 22:29 10/08/16 21:45 Levothyroxine Sodium (Synthroid) 75 mcg DAILY@0630 ORAL 10/08/16 06:30 11/07/16 06:29 10/09/16 06:11 Lisinopril (Zestril) 5 mg DAILY ORAL 10/08/16 09:00 11/07/16 08:59 10/09/16 09:36 Loperamide HCl (Imodium) 2 mg Q4H PRN ORAL Diarrhea 10/08/16 21:45 11/07/16 21:44 10/08/16 21:43 Metoprolol Tartrate (Lopressor) 50 mg BID ORAL 10/09/16 09:00 11/08/16 08:59 10/09/16 09:36 Nitroglycerin (Ntg) 0.4 mg [id number] X 3 DOSES PRN SL Prn Chest Pain 10/07/16 20:30 11/06/16 20:29 Pantoprazole (Protonix) 40 mg DAILY ORAL 10/08/16 09:00 11/07/16 08:59 10/09/16 09:37 Quetiapine Fumarate (SEROquel) 25 mg BEDTIME ORAL 10/07/16 22:30 11/06/16 22:29 10/08/16 20:09 Laboratory Tests 10/08/16 12:30: Troponin I 0.53*H 10/08/16 16:30: White Blood Count 5.3, Red Blood Count 3.80L, Hemoglobin 11.6L, Hematocrit 34.5L , Mean Corpuscular Volume 91, Mean Corpuscular Hemoglobin 30.5, Mean Corpuscular Hemoglobin Concent 33.7, Red Cell Distribution Width 13.0, Platelet Count 132L, Mean Platelet Volume 7.3, Neutrophils (%) (Auto) 56.4, Lymphocytes ( %) (Auto) 29.8, Monocytes (%) (Auto) 12.1H, Eosinophils (%) (Auto) 1.2, Basophils (%) (Auto) 0.6 10/09/16 03:45: White Blood Count 5.2, Red Blood Count 3.83L, Hemoglobin 11.6L, Hematocrit 34.8L , Mean Corpuscular Volume 91, Mean Corpuscular Hemoglobin 30.4, Mean Corpuscular Hemoglobin Concent 33.5, Red Cell Distribution Width 12.5, Platelet Count 129L, Mean Platelet Volume 6.9, Neutrophils (%) (Auto) 61.1, Lymphocytes ( %) (Auto) 24.7, Monocytes (%) (Auto) 11.5H, Eosinophils (%) (Auto) 2.0, Basophils (%) (Auto) 0.7, Sodium Level 145, Potassium Level 3.7, Chloride Level 106, Carbon Dioxide Level 29, Anion Gap 10, Blood Urea Nitrogen 13, Creatinine 0.5, Estimat Glomerular Filtration Rate > 60, Glucose Level 104, Calcium Level 8.4L, Total Bilirubin 0.3, Aspartate Amino Transf (AST/SGOT) 17, Alanine Aminotransferase (ALT/SGPT) 13, Alkaline Phosphatase 63, Total Protein 5.5L, Albumin 3.0L, Globulin 2.5, Albumin/Globulin Ratio 1.2 Height (Feet): 5 Height (Inches): 5.00 Weight (Pounds): 220 Objective exam urine is elenita DUNCAN DEEN Oct 09, 2016 10:03
--- NOTE | 2016-10-09 10:19 | Diagnostic Imaging Report ---
Indication: Hematuria Technique: Grayscale and duplex images of the kidneys, retroperitoneum, and bladder were obtained. Comparison:None Findings: Right kidney measures 10.4 cm in length. Left kidney measures 10.4 cm in length. Both kidneys demonstrate normal echogenicity. No hydronephrosis. No focal abnormality. Normal inferior vena cava. Bladder is empty, contains a Shulka catheter. Impression: Negative for hydronephrosis Shukla catheter within empty bladder incidentally noted.
[2016-10-09 12:00] VITALS: BP 120/82
[2016-10-09 16:00] VITALS: BP 144/77
[2016-10-09 17:22] LABS: BASOPHILS % (AUTO) 0.3 % (0.0-2.0); EOSINOPHILS % (AUTO) 1.4 % (0.0-3.0); LYMPHOCYTES % (AUTO) 17.5 % (20.0-45.0); MEAN CORPUSCULAR HEMOGLOBIN 30.6 PG (27.0-31.0); MEAN CORPUSCULAR HGB CONC 33.9 G/DL (32.0-36.0); MEAN CORPUSCULAR VOLUME 90 FL (80-99); MEAN PLATELET VOLUME 7.5 FL (6.5-10.1); MONOCYTES % (AUTO) 10.4 % (1.0-10.0); NEUTROPHILS % (AUTO) 70.5 % (45.0-75.0); PLATELET COUNT 146 K/UL (150-450); RED BLOOD COUNT 4.03 M/UL (4.20-5.40); RED CELL DISTRIBUTION WIDTH 12.7 % (11.6-14.8); WHITE BLOOD COUNT 4.7 K/UL (4.8-10.8)
--- NOTE | 2016-10-09 18:39 | Cardiology Progress Note ---
Assessment/Plan Status Narrative Cardiology consultation was made at the request of Dr. Hamlin on Oct 07, 2016. 1. NSTEMI, although CKMB are negative, awaiting the second trop levels, ASA 81, Lovenox 1mg/kg bid, atorvastatin 20 and metoprolol 2. Dyspnea with decrease O2, CXR and CT scan of chest were both negative, 12 lead ECG in am. Thi Jarquin M.D. Assessment/Plan 1. Elevated trop, chest pain free, likely due to tachycardia, no ischemic changes on the ECG, echo reveals normal wall motion (LVEF ~65%), DC Lovenox 2. DM 3. HTN 4. Dyslipidemia 5. PNA, repeat CXR in am. 6. ST, continue metoprolol, likely due to PNA. Subjective Subjective Sinus rhythm at 93. Denies any chest pain. Objective Last 24 Hour Vital Signs Date Time Temp Pulse Resp B/P Pulse Ox O2 Delivery O2 Flow Rate FiO2 10/09/16 17:44 98 144/77 10/09/16 16:17 96 10/09/16 16:00 97.8 98 20 144/77 96 Nasal Cannula 2.0 10/09/16 12:00 96.9 112 17 120/82 97 Nasal Cannula 2.0 10/09/16 11:46 88 10/09/16 09:36 95 125/79 10/09/16 09:36 125/79 10/09/16 08:00 96.7 108 18 125/79 96 Nasal Cannula 2.0 10/09/16 07:45 96 19 Nasal Cannula 4.0 10/09/16 07:40 105 10/09/16 04:26 97.7 89 20 140/66 97 Nasal Cannula 2.0 10/09/16 04:00 92 10/09/16 00:20 97.7 83 20 138/76 96 Room Air 10/09/16 00:00 85 10/08/16 20:10 92 163/100 10/08/16 20:00 97.5 92 21 163/101 98 Room Air 10/08/16 19:53 93 Intake and Output 10/08/16 10/09/16 19:00 07:00 Intake Total 360 ml 360 ml Output Total 300 ml 950 ml Balance 60 ml -590 ml Intake Oral 360 ml 360 ml Output Urine Total 300 ml 950 ml # Bowel Movements 9 3 2D Echo: LVEF 65%, Bi-atrial enlargement, LVH, RVSP 27 mmHg, Grade I LVDD Laboratory Tests Test 10/09/16 03:45 10/09/16 16:15 White Blood Count 5.2 K/UL (4.8-10.8) 4.7 K/UL (4.8-10.8) L Red Blood Count 3.83 M/UL (4.20-5.40) L 4.03 M/UL (4.20-5.40) L Hemoglobin 11.6 G/DL (12.0-16.0) L 12.3 G/DL (12.0-16.0) Hematocrit 34.8 % (37.0-47.0) L 36.3 % (37.0-47.0) L Mean Corpuscular Volume 91 FL (80-99) 90 FL (80-99) Mean Corpuscular Hemoglobin 30.4 PG (27.0-31.0) 30.6 PG (27.0-31.0) Mean Corpuscular Hemoglobin Concent 33.5 G/DL (32.0-36.0) 33.9 G/DL (32.0-36.0) Red Cell Distribution Width 12.5 % (11.6-14.8) 12.7 % (11.6-14.8) Platelet Count 129 K/UL (150-450) L 146 K/UL (150-450) L Mean Platelet Volume 6.9 FL (6.5-10.1) 7.5 FL (6.5-10.1) Neutrophils (%) (Auto) 61.1 % (45.0-75.0) 70.5 % (45.0-75.0) Lymphocytes (%) (Auto) 24.7 % (20.0-45.0) 17.5 % (20.0-45.0) L Monocytes (%) (Auto) 11.5 % (1.0-10.0) H 10.4 % (1.0-10.0) H Eosinophils (%) (Auto) 2.0 % (0.0-3.0) 1.4 % (0.0-3.0) Basophils (%) (Auto) 0.7 % (0.0-2.0) 0.3 % (0.0-2.0) Sodium Level 145 mEQ/L (135-145) Potassium Level 3.7 mEQ/L (3.4-4.9) Chloride Level 106 mEQ/L (98-107) Carbon Dioxide Level 29 mEQ/L (20-30) Anion Gap 10 (5-15) Blood Urea Nitrogen 13 mg/dL (7-23) Creatinine 0.5 mg/dL (0.5-0.9) Estimat Glomerular Filtration Rate > 60 mL/min (>60) Glucose Level 104 mg/dL (74-106) Calcium Level 8.4 mg/dL (8.6-10.2) L Total Bilirubin 0.3 mg/dL (0.0-1.2) Aspartate Amino Transf (AST/SGOT) 17 U/L (5-40) Alanine Aminotransferase (ALT/SGPT) 13 U/L (3-33) Alkaline Phosphatase 63 U/L (35-104) Total Protein 5.5 g/dL (6.6-8.7) L Albumin 3.0 g/dL (3.5-5.2) L Globulin 2.5 g/dL Albumin/Globulin Ratio 1.2 (1.0-2.7) Microbiology Date/Time Source Procedure Growth Status 10/08/16 14:50 Stool Clostridium difficile Toxin Assay - Final Complete 10/08/16 13:00 Indwelling Cath Urine Culture - Preliminary Gram Negative Bacillus 1 Resulted 10/07/16 15:55 Arm Left Blood Culture - Preliminary NO GROWTH AFTER 24 HOURS Resulted 10/07/16 15:40 Hand Right Blood Culture - Preliminary NO GROWTH AFTER 24 HOURS Resulted Objective HEENT: Atraumatic and normocephalic, PERRLA, EOMI NECK: Negative JVD, no carotid bruit HEART: S1 and S2. Regular rate and rhythm, tachycardia CHEST: Clear ABDOMEN: Soft. non-tender, nondistended No organomegaly. MUSCULOSKELETAL: No edema, clubbing or cyanosis NEUROLOGIC: No focal signs, + dementia. THI JARQUIN Oct 09, 2016 18:39
[2016-10-09 20:00] VITALS: BP 146/70
--- NOTE | 2016-10-09 20:09 | Consultation ---
DATE OF CONSULTATION: 10/08/2016 CONSULTING PHYSICIAN: Jigna Sun M.D. HISTORY OF PRESENT ILLNESS: This is a 70-year-old female with a history of hypothyroidism, hypertension, diabetes mellitus, anxiety disorder, and depression, has been admitted to the hospital due to his shortness of breath. Psychiatry was consulted. The patient presenting with anxiety, depressed mood, anhedonia, worthlessness, and hopelessness. No suicidal or homicidal ideation. No manic or psychotic symptoms. PAST PSYCHIATRIC HISTORY: She has been diagnosed with mood disorder, bipolar disorder, and anxiety. She has been treated with Seroquel and Depakote. PAST MEDICAL HISTORY: Significant for hyperlipidemia, hypothyroidism, and hypertension. PAST SURGICAL HISTORY: Includes hysterectomy. MEDICATIONS: In the hospital include aspirin, atorvastatin, Depakote, Lovenox, insulin, as well as Seroquel. ALLERGIES: To penicillin. SOCIAL HISTORY: The patient does not have any history of illicit drug use or alcohol. The patient lives in a group home home. MENTAL STATUS EXAMINATION: The patient is alert, oriented times self and place. Mood is anxious. Affect is constricted. Congruent mood. Thought process is concrete. Thought content, no suicidal or homicidal ideation. Cognition is impaired. ASSESSMENT: [place] I Bipolar disorder by history. [place] II Deferred. [place] III Hypertension, hypothyroidism, cognitive impaired, and chronic obstructive pulmonary disease [place] IV Low. [place] V Global assessment of functioning is 55. PLAN: 1. We will continue the patient on Seroquel, we will increase the dose of 50 mg by mouth nightly. 2. We will continue the Depakote. 3. We will continue to follow and readjust the medication. Jigna Sun M.D. DR: Yanci JOB#: [id number] CC:
[2016-10-09] MEDS: metroNIDAZOLE 500mg 100 ML IVPB SCH (22:13)
--- NOTE | 2016-10-09 22:20 | Consultation ---
DATE OF CONSULTATION: 10/09/2016 CARDIOLOGY CONSULTATION CONSULTING PHYSICIAN: Ted Jarquin M.D. REFERRING PHYSICIAN: Daniel Hamlin M.D. REASON FOR CONSULTATION: Management of elevated troponin. HISTORY OF PRESENT ILLNESS: The patient is a very unfortunate 70-year-old female, who is brought from nurses of [facility] for complaint of cough and O2 desaturation. The patient has hypoxia. Apparently, her oxygen saturation dropped below normal. The patient on arrival to emergency department had a blood pressure of 119/72 and heart rate was 132. Initial evaluation in the emergency department, 12-lead electrocardiogram showed sinus tachycardia with no ST and T-wave abnormalities. There was no evidence of arrhythmias. Initial blood tests in the emergency department showed elevation of troponin at 0.88 although the CK-MB was within normal limits. PAST MEDICAL HISTORY: Includes hypertension, diabetes mellitus, schizoaffective disorder, and hypothyroidism. PAST SURGICAL HISTORY: Hysterectomy. MEDICATIONS: Atorvastatin 20 mg p.o. q.h.s., Depakote 250 mg q.12 hours, Colace 100 mg p.o. daily, Neurontin 300 mg p.o. twice daily, levothyroxine 75 mg p.o. daily, lisinopril 10 mg p.o. daily, and Seroquel 25 mg p.o. daily. ALLERGIES: Penicillin. SOCIAL HISTORY: Denies any tobacco, alcohol, or illicit drug use. REVIEW OF SYSTEMS: HEENT: Denies any headache, diplopia, or blurred vision. Constitutional: Denies any fever, chills, night sweats, or weight loss. Cardiovascular: Denies any chest pain, shortness breath, PND, orthopnea, or leg swelling. Pulmonary: She has complaints of cough and shortness of breath, but no hemoptysis. Gastrointestinal: Denies any nausea, vomiting, diarrhea, constipation, abdominal pain, or GI bleed. Genitourinary: Denies any hematuria, dysuria, or incontinence. Neurologic: Denies any motor dysfunction, sensory deficits, or altered speech. PHYSICAL EXAMINATION: VITAL SIGNS: Blood pressure was 119/72, respirations 24, pulse 132, temperature 98.4 degrees Fahrenheit, and O2 saturation 96% on nasal cannula. GENERAL: The patient is a very pleasant 70-year-old female, in no apparent respiratory distress. Alert and oriented x4. HEENT: Atraumatic and normocephalic. Anicteric. Pupils are equal, round, and reactive to light and accommodation. Extraocular muscles are intact. NECK: JVP is less than 5 cm. No carotid bruit. Carotid upstrokes 2+ bilaterally. CVS: Normal S1 and S2. Regular rate and rhythm. No tachycardia. No murmurs, gallops, or rubs. LUNGS: Clear to auscultation bilaterally. ABDOMEN: Soft, nontender, and nondistended. No hepatosplenomegaly. Positive bowel sounds. EXTREMITIES: No edema, clubbing, or cyanosis. LABORATORY AND DIAGNOSTIC DATA: Sodium was 145, potassium 3.8, chloride 103, bicarbonate 27, BUN 26, creatinine 0.9, and glucose is 110. Calcium is 8.7. Troponin I was 0.88. CK-MB was 2.9. ProBNP was 356. TSH is 1.27. INR was 1.0. A 12-lead electrocardiogram with sinus tachycardia at 125 with right antonio axis and right atrial enlargement. No acute ST and T-wave abnormalities. Chest x-ray showed normal cardiac silhouette expiratory film. No acute cardiopulmonary disease. A CT angiography of the chest shows no gross evidence of large vessel central pulmonary emboli, lateral basal atelectatic changes and possible left basilar consolidation, masslike opacity, and inferomedial right hemothorax. ASSESSMENT AND PLAN: The patient is a very unfortunate 70-year-old female, seen in Cardiology consultation at request of Dr. Hamlin. 1. In view of productive cough, oxygen desaturation and CT of chest pain findings, the patient has pneumonia. There is slight elevation of troponin I level in this patient most likely secondary to underlying tachycardia. I will like to hydrate the patient. Continue with serial troponin I levels. Currently, the patient is chest pain-free. A 12-lead electrocardiogram does not show any evidence of ischemia. I would not however like to start the patient on 24-hour Lovenox therapy for 1 mg/kg subcutaneously twice daily. We will like to obtain 2D echocardiography for assessment of wall motion if the left ventricular ejection fraction is below 40%. We will consider cardiac catheterization. 2. History of hypertension. 3. History of diabetes mellitus. I would recommend aspirin and statin use in the long term acute care registered nurse for prevention of vasculopathy. The patient will have a lipid panel as well. I would like to thank, Dr. Hamlin for allowing me to participate in the care of this patient. Ted Jarquin M.D. DR: SALVADOR JOB#: [id number] CC:
[2016-10-10 00:28] VITALS: BP 171/78
[2016-10-10 04:20] VITALS: BP 181/90
[2016-10-10 04:47] LABS: BASOPHILS % (AUTO) 0.4 % (0.0-2.0); EOSINOPHILS % (AUTO) 1.1 % (0.0-3.0); LYMPHOCYTES % (AUTO) 26.1 % (20.0-45.0); MEAN CORPUSCULAR HEMOGLOBIN 28.7 PG (27.0-31.0); MEAN CORPUSCULAR HGB CONC 32.8 G/DL (32.0-36.0); MEAN CORPUSCULAR VOLUME 87 FL (80-99); MEAN PLATELET VOLUME 6.9 FL (6.5-10.1); MONOCYTES % (AUTO) 15.7 % (1.0-10.0); NEUTROPHILS % (AUTO) 56.6 % (45.0-75.0); PLATELET COUNT 141 K/UL (150-450); RED BLOOD COUNT 4.12 M/UL (4.20-5.40); RED CELL DISTRIBUTION WIDTH 12.4 % (11.6-14.8); WHITE BLOOD COUNT 4.7 K/UL (4.8-10.8)
[2016-10-10 05:08] LABS: ALANINE AMINOTRANSFERASE 10 U/L (3-33); ALBUMIN/GLOBULIN RATIO 1.2 (1.0-2.7); ANION GAP 12 (5-15); ASPARTATE AMINO TRANSFERASE 13 U/L (5-40); CALCIUM 8.5 mg/dL (8.6-10.2); CARBON DIOXIDE 29 mEQ/L (20-30); CHLORIDE 100 mEQ/L (98-107); CREATININE 0.5 mg/dL (0.5-0.9); GLOMERULAR FILTRATION RATE > 60 mL/min (>60); HEMOLYSIS 0; POTASSIUM 3.4 mEQ/L (3.4-4.9); SODIUM 141 mEQ/L (135-145); TOTAL PROTEIN 5.5 g/dL (6.6-8.7)
[2016-10-10] MEDS: metroNIDAZOLE 500mg 100 ML IVPB SCH ×3 (06:25→21:20)
[2016-10-10] MEDS: NovoLOG Insulin Flexpen SUBQ SCH ×4 (06:26→21:21)
[2016-10-10 08:00] VITALS: BP 136/96
[2016-10-10] MEDS: Aspirin EC 81mg tab ORAL SCH (08:50)
[2016-10-10] MEDS: Lisinopril 10mg tab ORAL SCH (08:52)
[2016-10-10] MEDS: Metoprolol 50mg tab ORAL SCH ×2 (08:52→17:49)
[2016-10-10] MEDS: Docusate 100mg cap ORAL SCH (08:53)
--- NOTE | 2016-10-10 10:07 | Urology Progress Note ---
Assessment/Plan Assessment/Plan 1. Gross hematuria, which is clearing. 2. Urinary retention. 3. Neurogenic bladder. 4. Proteinuria. 5. UTI. hand irrigate tidwell PRN add abx monitor h/h may need to hold asa Subjective Allergies: Coded Allergies: PENICILLINS (Verified Allergy, Unknown, 10/07/16) Subjective all noted Objective Last 24 Hour Vital Signs Date Time Temp Pulse Resp B/P Pulse Ox O2 Delivery O2 Flow Rate FiO2 10/10/16 08:52 82 136/96 10/10/16 08:52 136/96 10/10/16 08:00 96.5 82 18 136/96 96 Nasal Cannula 2.0 10/10/16 04:20 97.0 99 20 181/90 99 Room Air 10/10/16 03:40 89 10/10/16 00:28 97.7 77 20 171/78 93 Room Air 10/09/16 23:54 89 10/09/16 20:00 97.6 100 22 146/70 96 Nasal Cannula 2.0 10/09/16 19:46 93 10/09/16 17:44 98 144/77 10/09/16 16:17 96 10/09/16 16:00 97.8 98 20 144/77 96 Nasal Cannula 2.0 10/09/16 12:00 96.9 112 17 120/82 97 Nasal Cannula 2.0 10/09/16 11:46 88 Intake and Output 10/09/16 10/10/16 19:00 07:00 Intake Total 360 ml 360 ml Output Total 260 ml 1050 ml Balance 100 ml -690 ml Intake Oral 360 ml 260 ml IV Total 100 ml Output Urine Total 260 ml 1050 ml # Bowel Movements 1 1 Microbiology Date/Time Source Procedure Growth Status 10/08/16 14:50 Stool Clostridium difficile Toxin Assay - Final Complete 10/08/16 13:00 Indwelling Cath Urine Culture - Final Escherichia Coli Complete 10/07/16 21:00 Rectum VRE Culture - Final NO VANCOMYCIN RESISTANT ENTEROCOCCUS ... Complete Current Medications Medications (Trade) Dose Ordered Sig/Domingo Route PRN Reason Start Time Stop Time Status Last Admin Dose Admin Aspirin (Ecotrin) 81 mg DAILY ORAL 10/08/16 09:00 11/07/16 08:59 10/10/16 08:50 Atorvastatin Calcium (Lipitor) 40 mg BEDTIME ORAL 10/09/16 21:00 11/08/16 20:59 10/09/16 22:14 Dextrose (Dextrose 50%) STAT PRN IV Hypoglycemia 10/07/16 21:00 11/06/16 20:59 Divalproex Sodium (Depakote) 250 mg EVERY 12 HOURS ORAL 10/07/16 22:30 11/06/16 22:29 10/10/16 08:51 Docusate Sodium (Colace) 100 mg DAILY ORAL 10/08/16 09:00 11/07/16 08:59 Insulin Aspart (NovoLOG) BEFORE MEALS AND HS SUBQ 10/07/16 22:30 11/06/16 22:29 10/09/16 22:16 Levothyroxine Sodium (Synthroid) 75 mcg DAILY@0630 ORAL 10/08/16 06:30 11/07/16 06:29 10/10/16 06:25 Lisinopril (Zestril) 5 mg DAILY ORAL 10/08/16 09:00 11/07/16 08:59 10/10/16 08:52 Loperamide HCl (Imodium) 2 mg Q4H PRN ORAL Diarrhea 10/08/16 21:45 11/07/16 21:44 10/08/16 21:43 Metoprolol Tartrate (Lopressor) 50 mg BID ORAL 10/09/16 09:00 11/08/16 08:59 10/10/16 08:52 Metronidazole (Flagyl) 100 ml @ 100 mls/hr Q8HR IVPB 10/09/16 20:00 10/16/16 19:59 10/10/16 06:25 Nitroglycerin (Ntg) 0.4 mg [id number] X 3 DOSES PRN SL Prn Chest Pain 10/07/16 20:30 11/06/16 20:29 Pantoprazole (Protonix) 40 mg DAILY ORAL 10/08/16 09:00 11/07/16 08:59 10/10/16 08:50 Quetiapine Fumarate 50 mg 50 mg BEDTIME ORAL 10/09/16 21:00 11/08/16 20:59 10/09/16 22:14 Laboratory Tests 10/09/16 16:15: White Blood Count 4.7L, Red Blood Count 4.03L, Hemoglobin 12.3, Hematocrit 36.3L , Mean Corpuscular Volume 90, Mean Corpuscular Hemoglobin 30.6, Mean Corpuscular Hemoglobin Concent 33.9, Red Cell Distribution Width 12.7, Platelet Count 146L, Mean Platelet Volume 7.5, Neutrophils (%) (Auto) 70.5, Lymphocytes ( %) (Auto) 17.5L, Monocytes (%) (Auto) 10.4H, Eosinophils (%) (Auto) 1.4, Basophils (%) (Auto) 0.3 10/10/16 04:15: White Blood Count 4.7L, Red Blood Count 4.12L, Hemoglobin 11.8L, Hematocrit 36.0L, Mean Corpuscular Volume 87, Mean Corpuscular Hemoglobin 28.7, Mean Corpuscular Hemoglobin Concent 32.8, Red Cell Distribution Width 12.4, Platelet Count 141L, Mean Platelet Volume 6.9, Neutrophils (%) (Auto) 56.6, Lymphocytes ( %) (Auto) 26.1, Monocytes (%) (Auto) 15.7H, Eosinophils (%) (Auto) 1.1, Basophils (%) (Auto) 0.4, Sodium Level 141, Potassium Level 3.4, Chloride Level 100, Carbon Dioxide Level 29, Anion Gap 12, Blood Urea Nitrogen 10, Creatinine 0.5, Estimat Glomerular Filtration Rate > 60, Glucose Level 110H, Calcium Level 8.5L, Total Bilirubin 0.3, Aspartate Amino Transf (AST/SGOT) 13, Alanine Aminotransferase (ALT/SGPT) 10, Alkaline Phosphatase 58, Total Protein 5.5L, Albumin 3.0L, Globulin 2.5, Albumin/Globulin Ratio 1.2 Height (Feet): 5 Height (Inches): 5.00 Weight (Pounds): 220 Objective exam urine is elenita renal u/s noted DUNCAN EDEN Oct 10, 2016 10:07
--- NOTE | 2016-10-10 11:59 | Cardiology Report ---
APPROVED REPORT EKG Measurement Heart [id number] Sinus tachycardia Right atrial enlargement Rightward axis Borderline ECG
[2016-10-10 12:00] VITALS: BP 135/73
--- NOTE | 2016-10-10 12:32 | Consultation ---
Consult Note Consult Note ID CONSULT: Dict# [id number] Assessment/Plan ASSESSMENT: 70 y/o female with: // C.difficile diarrhea - improved on immodium // Possible complicated E.coli UTI with gross hematuria - UA benign - US: tidwell, no stones or hydronephrosis - h/o urinary retention, neurogenic bladder // Periodontal disease // Leukopenia, afebrile // NSTEMI / elevated troponin - cardiology following - TTE: EF 60-65%, grade I diastolic dysfunction, mod TR // Masslike opacity inferomedial right hemithorax, probably just a prominent unopacified suprahepatic inferior vena cava // 19 mm arterial phase enhancing lesion in the dome of the right lobe of the liver. // Thrombocytopenia // Psych disorder // [facility] resident // Negative MRSA, VRE screens // PCN allergy - unable to qualify // Full Code PLAN: - continue flagyl d# 2 -, add rocephin UTI Rx. Aware stated PCN allergy, will monitor - f/u final cultures - monitor CBC, temperatures - monitor BMP Thanks! Will follow KOTA HERZOG Oct 10, 2016 12:32
--- NOTE | 2016-10-10 13:50 | General Progress Note ---
Assessment/Plan Status: stable Assessment/Plan 1- C-diff colitis 2. HCA-UTI 3. Troponin leakage 4- Gross Hematuria 3- Psych d/o 4- Multiple joint OA 5. Abnormal Imaging finding in chest CT 5- GI/DVT prophylaxia Plan: DC lovenox Stop transfer for cardiac cath for now consult pulmonary regarding incidental finding in CXR ID note reviewed Subjective ROS Limited/Unobtainable: No Constitutional: Reports: malaise HEENT: Reports: no symptoms Cardiovascular: Reports: no symptoms Respiratory: Reports: no symptoms Gastrointestinal/Abdominal: Reports: abdomen distended Allergies: Coded Allergies: PENICILLINS (Verified Allergy, Unknown, 10/07/16) Objective Last 24 Hour Vital Signs Date Time Temp Pulse Resp B/P Pulse Ox O2 Delivery O2 Flow Rate FiO2 10/10/16 12:00 96.9 75 18 135/73 98 Nasal Cannula 10/10/16 11:40 86 10/10/16 08:52 82 136/96 10/10/16 08:52 136/96 10/10/16 08:00 96.5 82 18 136/96 96 Nasal Cannula 2.0 10/10/16 07:35 80 10/10/16 04:20 97.0 99 20 181/90 99 Room Air 10/10/16 03:40 89 10/10/16 00:28 97.7 77 20 171/78 93 Room Air 10/09/16 23:54 89 10/09/16 20:00 97.6 100 22 146/70 96 Nasal Cannula 2.0 10/09/16 19:46 93 10/09/16 17:44 98 144/77 10/09/16 16:17 96 10/09/16 16:00 97.8 98 20 144/77 96 Nasal Cannula 2.0 Intake and Output 10/09/16 10/10/16 19:00 07:00 Intake Total 360 ml 360 ml Output Total 260 ml 1050 ml Balance 100 ml -690 ml Intake Oral 360 ml 260 ml IV Total 100 ml Output Urine Total 260 ml 1050 ml # Bowel Movements 1 1 Laboratory Tests 10/09/16 16:15: White Blood Count 4.7L, Red Blood Count 4.03L, Hemoglobin 12.3, Hematocrit 36.3L , Mean Corpuscular Volume 90, Mean Corpuscular Hemoglobin 30.6, Mean Corpuscular Hemoglobin Concent 33.9, Red Cell Distribution Width 12.7, Platelet Count 146L, Mean Platelet Volume 7.5, Neutrophils (%) (Auto) 70.5, Lymphocytes ( %) (Auto) 17.5L, Monocytes (%) (Auto) 10.4H, Eosinophils (%) (Auto) 1.4, Basophils (%) (Auto) 0.3 10/10/16 04:15: White Blood Count 4.7L, Red Blood Count 4.12L, Hemoglobin 11.8L, Hematocrit 36.0L, Mean Corpuscular Volume 87, Mean Corpuscular Hemoglobin 28.7, Mean Corpuscular Hemoglobin Concent 32.8, Red Cell Distribution Width 12.4, Platelet Count 141L, Mean Platelet Volume 6.9, Neutrophils (%) (Auto) 56.6, Lymphocytes ( %) (Auto) 26.1, Monocytes (%) (Auto) 15.7H, Eosinophils (%) (Auto) 1.1, Basophils (%) (Auto) 0.4, Sodium Level 141, Potassium Level 3.4, Chloride Level 100, Carbon Dioxide Level 29, Anion Gap 12, Blood Urea Nitrogen 10, Creatinine 0.5, Estimat Glomerular Filtration Rate > 60, Glucose Level 110H, Calcium Level 8.5L, Total Bilirubin 0.3, Aspartate Amino Transf (AST/SGOT) 13, Alanine Aminotransferase (ALT/SGPT) 10, Alkaline Phosphatase 58, Total Protein 5.5L, Albumin 3.0L, Globulin 2.5, Albumin/Globulin Ratio 1.2 Height (Feet): 5 Height (Inches): 5.00 Weight (Pounds): 220 General Appearance: no apparent distress EENT: PERRL/EOMI Neck: supple Cardiovascular: normal rate Respiratory/Chest: lungs clear Abdomen: soft Extremities: non-tender Neurologic: manager user interface II-XII grossly normal, other - demented, limited source of information Daniel Hamlin MD Oct 10, 2016 13:50
[2016-10-10] MEDS: cefTRIAXone 1 GM in D5W 55 ML IVPB SCH (14:09)
--- NOTE | 2016-10-10 14:57 | Cardiology Report ---
APPROVED REPORT EKG Measurement Heart [id number] Sinus tachycardia Possible Left atrial enlargement Borderline ECG
[2016-10-10] MEDS ORDERED: Sterile Water Irrig 1000ml IRRIG ONE (15:26)
[2016-10-10 16:00] VITALS: BP 146/81
[2016-10-10 16:26] LABS: BASOPHILS % (AUTO) 0.5 % (0.0-2.0); EOSINOPHILS % (AUTO) 1.2 % (0.0-3.0); LYMPHOCYTES % (AUTO) 24.9 % (20.0-45.0); MEAN CORPUSCULAR HEMOGLOBIN 28.9 PG (27.0-31.0); MEAN CORPUSCULAR HGB CONC 33.2 G/DL (32.0-36.0); MEAN CORPUSCULAR VOLUME 87 FL (80-99); MONOCYTES % (AUTO) 16.4 % (1.0-10.0); PLATELET COUNT 150 K/UL (150-450); RED BLOOD COUNT 3.86 M/UL (4.20-5.40); RED CELL DISTRIBUTION WIDTH 12.2 % (11.6-14.8); WHITE BLOOD COUNT 4.6 K/UL (4.8-10.8)
--- NOTE | 2016-10-10 16:29 | Consultation ---
History of Present Illness General Date patient seen: Oct 10, 2016 Chief Complaint: Dyspnea/Respdistress Referring physician: Dr. Zarate Reason for Consultation: dyspnea Present Illness HPI 70 year old patient with hx of [place], HTN, obesity, retirement resident is brought in by EMS with CC of coughing and desaturation at the retirement. The patient complains of an ongoing cough. There is no fever or chills. she had a CT angio in ER showing no major PE. Her CT showed a pulmonary nodule, I was asked to evaluate those findings. She is still coughing without any phlegm. Allergies: Coded Allergies: PENICILLINS (Verified Allergy, Unknown, 10/07/16) Medication History Scheduled Atorvastatin Calcium* (Atorvastatin Calcium*), 20 MG ORAL BEDTIME, (Reported) Divalproex Sodium* (Depakote*), 250 MG PO Q12HR, (Reported) Docusate Sodium* (Colace*), 100 MG ORAL DAILY, (Reported) Gabapentin* (Neurontin*), 300 MG ORAL TWICE A DAY, (Reported) Levothyroxine Sodium* (Levothyroxine Sodium*), 75 MCG ORAL DAILY, (Reported) Lisinopril* (Lisinopril*), 10 MG ORAL DAILY, (Reported) Quetiapine Fumarate* (Seroquel*), 25 MG ORAL DAILY, (Reported) Patient History Healthcare decision maker Resuscitation status Full Code Advanced Directive on File Yes Past Medical/Surgical History Past Medical/Surgical History: (1) Diabetes mellitus (2) Schizoaffective disorder Review of Systems Respiratory: Reports: shortness of breath, sputum All Other Systems: negative except mentioned in HPI Physical Exam General Appearance: no apparent distress Lines, tubes and drains: peripheral, central line HEENT: normocephalic, atraumatic Neck: non-tender, normal alignment Respiratory/Chest: chest wall non-tender, rhonchi - left, rhonchi - right Cardiovascular/Chest: normal peripheral pulses Abdomen: normal bowel sounds, non tender, soft Last 24 Hour Vital Signs Date Time Temp Pulse Resp B/P Pulse Ox O2 Delivery O2 Flow Rate FiO2 10/10/16 12:00 96.9 75 18 135/73 98 Nasal Cannula 10/10/16 11:40 86 10/10/16 08:52 82 136/96 10/10/16 08:52 136/96 10/10/16 08:00 96.5 82 18 136/96 96 Nasal Cannula 2.0 10/10/16 07:35 80 10/10/16 04:20 97.0 99 20 181/90 99 Room Air 10/10/16 03:40 89 10/10/16 00:28 97.7 77 20 171/78 93 Room Air 10/09/16 23:54 89 10/09/16 20:00 97.6 100 22 146/70 96 Nasal Cannula 2.0 10/09/16 19:46 93 10/09/16 17:44 98 144/77 Intake and Output 10/09/16 10/10/16 19:00 07:00 Intake Total 360 ml 360 ml Output Total 260 ml 1050 ml Balance 100 ml -690 ml Intake Oral 360 ml 260 ml IV Total 100 ml Output Urine Total 260 ml 1050 ml # Bowel Movements 1 1 Laboratory Tests Test 10/10/16 04:15 White Blood Count 4.7 K/UL (4.8-10.8) L Red Blood Count 4.12 M/UL (4.20-5.40) L Hemoglobin 11.8 G/DL (12.0-16.0) L Hematocrit 36.0 % (37.0-47.0) L Mean Corpuscular Volume 87 FL (80-99) Mean Corpuscular Hemoglobin 28.7 PG (27.0-31.0) Mean Corpuscular Hemoglobin Concent 32.8 G/DL (32.0-36.0) Red Cell Distribution Width 12.4 % (11.6-14.8) Platelet Count 141 K/UL (150-450) L Mean Platelet Volume 6.9 FL (6.5-10.1) Neutrophils (%) (Auto) 56.6 % (45.0-75.0) Lymphocytes (%) (Auto) 26.1 % (20.0-45.0) Monocytes (%) (Auto) 15.7 % (1.0-10.0) H Eosinophils (%) (Auto) 1.1 % (0.0-3.0) Basophils (%) (Auto) 0.4 % (0.0-2.0) Sodium Level 141 mEQ/L (135-145) Potassium Level 3.4 mEQ/L (3.4-4.9) Chloride Level 100 mEQ/L (98-107) Carbon Dioxide Level 29 mEQ/L (20-30) Anion Gap 12 (5-15) Blood Urea Nitrogen 10 mg/dL (7-23) Creatinine 0.5 mg/dL (0.5-0.9) Estimat Glomerular Filtration Rate > 60 mL/min (>60) Glucose Level 110 mg/dL (74-106) H Calcium Level 8.5 mg/dL (8.6-10.2) L Total Bilirubin 0.3 mg/dL (0.0-1.2) Aspartate Amino Transf (AST/SGOT) 13 U/L (5-40) Alanine Aminotransferase (ALT/SGPT) 10 U/L (3-33) Alkaline Phosphatase 58 U/L (35-104) Total Protein 5.5 g/dL (6.6-8.7) L Albumin 3.0 g/dL (3.5-5.2) L Globulin 2.5 g/dL Albumin/Globulin Ratio 1.2 (1.0-2.7) Height (Feet): 5 Height (Inches): 5.00 Weight (Pounds): 220 Medications Current Medications Medications (Trade) Dose Ordered Sig/Domingo Route PRN Reason Start Time Stop Time Status Last Admin Dose Admin Aspirin (Ecotrin) 81 mg DAILY ORAL 10/08/16 09:00 11/07/16 08:59 10/10/16 08:50 Atorvastatin Calcium 40 mg 40 mg BEDTIME ORAL 10/09/16 21:00 11/08/16 20:59 10/09/16 22:14 Ceftriaxone Sodium/Dextrose (Rocephin/D5W) 55 ml @ 110 mls/hr Q24H IVPB 10/10/16 14:00 10/17/16 13:59 10/10/16 14:09 Dextrose (Dextrose 50%) STAT PRN IV Hypoglycemia 10/07/16 21:00 11/06/16 20:59 Divalproex Sodium (Depakote) 250 mg EVERY 12 HOURS ORAL 10/07/16 22:30 11/06/16 22:29 10/10/16 08:51 Docusate Sodium (Colace) 100 mg DAILY ORAL 10/08/16 09:00 11/07/16 08:59 Insulin Aspart (NovoLOG) BEFORE MEALS AND HS SUBQ 10/07/16 22:30 11/06/16 22:29 10/09/16 22:16 Levothyroxine Sodium (Synthroid) 75 mcg DAILY@0630 ORAL 10/08/16 06:30 11/07/16 06:29 10/10/16 06:25 Lisinopril (Zestril) 5 mg DAILY ORAL 10/08/16 09:00 11/07/16 08:59 10/10/16 08:52 Loperamide HCl (Imodium) 2 mg Q4H PRN ORAL Diarrhea 10/08/16 21:45 11/07/16 21:44 10/08/16 21:43 Metoprolol Tartrate (Lopressor) 50 mg BID ORAL 10/09/16 09:00 11/08/16 08:59 10/10/16 08:52 Metronidazole (Flagyl) 100 ml @ 100 mls/hr Q8HR IVPB 10/09/16 20:00 10/16/16 19:59 10/10/16 14:09 Nitroglycerin (Ntg) 0.4 mg [id number] X 3 DOSES PRN SL Prn Chest Pain 10/07/16 20:30 11/06/16 20:29 Pantoprazole (Protonix) 40 mg DAILY ORAL 10/08/16 09:00 11/07/16 08:59 10/10/16 08:50 Quetiapine Fumarate 50 mg 50 mg BEDTIME ORAL 10/09/16 21:00 11/08/16 20:59 10/09/16 22:14 Assessment/Plan Problem List: (1) Bronchitis ICD Codes: J40 - Bronchitis, not specified as acute or chronic SNOMED: 72650886 (2) Pulmonary nodule ICD Codes: R91.1 - Solitary pulmonary nodule SNOMED: 293100750 (3) Persistent cough ICD Codes: R05 - Cough SNOMED: 297285479 (4) Diabetes mellitus ICD Codes: E11.9 - Type 2 diabetes mellitus without complications SNOMED: 72908253 (5) Schizoaffective disorder ICD Codes: F25.9 - Schizoaffective disorder, unspecified SNOMED: 72577202 Assessment/Plan respiratory treatment check sputum titrate fio2 to sat of 92% dvt prophylaxis trial of theophylin GLADYS JAIN Oct 10, 2016 16:29
[2016-10-10] MEDS ORDERED: Promethazine/Codeine 5ml UD ORAL PRN (16:30)
--- NOTE | 2016-10-10 19:49 | Consultation ---
DATE OF CONSULTATION: 10/10/2016 INFECTIOUS DISEASE CONSULTATION REQUESTING PHYSICIAN: Daniel Hamlin M.D. REASON FOR CONSULTATION: UTI and C. difficile. HISTORY OF PRESENT ILLNESS: This is a 70-year-old female, shelter resident with a history of psychiatric disorder, admitted on 10/07/2016 with cough and shortness of breath. A CT angiogram was negative for pulmonary embolus or pneumonia. The patient is currently breathing easy on room air and not coughing. Hospital course has been complicated by C. difficile diarrhea and hematuria with urine culture growing sensitive E. coli. She is afebrile with a mild leukopenia and is currently on Flagyl day #2. ID now consulted to assist in management. PAST MEDICAL HISTORY: 1. Hypothyroidism. 2. Hypertension. 3. Osteoarthritis. 4. Psychiatric disorder. 5. Diabetes. PAST SURGICAL HISTORY: Hysterectomy. MEDICATIONS: 1. Flagyl day #2. 2. Seroquel. 3. Lipitor. 4. Metoprolol. 5. Protonix. 6. Lisinopril. 7. Aspirin. 8. Synthroid. 9. Depakote. ALLERGIES: 1. Penicillin. 2. Unable to qualify. SOCIAL HISTORY: The patient is resident in shelter. No active tobacco, alcohol, or illicit drug abuse. FAMILY HISTORY: Noncontributory. REVIEW OF SYSTEMS: As per history of present illness. Ten systems reviewed. All pertinent positives and negatives noted. PHYSICAL EXAMINATION: GENERAL: No apparent distress. Nontoxic appearing. VITAL SIGNS: Maximum temperature 98.6 degrees, blood pressure 136/96, heart rate in the 80s, respiratory rate 18, and saturating 96% on three liters nasal cannula. HEENT: Poor dentition. PULMONARY: Clear to auscultation bilaterally. CARDIOVASCULAR: Regular rate and rhythm. No murmurs. ABDOMEN: Bowel sounds present. Soft, nondistended, and nontender. Shukla catheter in place with gross hematuria. EXTREMITIES: Edema. LABORATORY AND DIAGNOSTIC DATA: White blood cell count 4.7, hemoglobin 11.8, and platelets 141,000. Sodium 141, potassium 3.4, chloride 100, bicarbonate 29, BUN 10, and creatinine 0.5. Peak troponin 0.88. liver function tests within normal limits. Microbiology, 1. On 10/08/2016, C. difficile toxin positive. 2. On 10/08/2016, urine culture greater than 100,000 colony-forming units of E. coli with a negative urinalysis on 10/07/2016. 3. On 10/07/2016, blood culture no growth to date. Imaging, reviewed. ASSESSMENT: 1. Clostridium difficile diarrhea, improved on Imodium. 2. Possible complicated Escherichia coli urinary tract infection with gross hematuria. Urinalysis is benign. Ultrasound shows Shukla and no stones or hydronephrosis. She has a history of urinary retention and neurogenic bladder. Urology is following. 3. Periodontal disease. 4. Leukopenia, afebrile. 5. Non ST elevation myocardial infarction with a peak troponin of 0.88. Cardiology is following. Echocardiogram shows an ejection fraction of 60%-65% grade 1 diastolic dysfunction and moderate tricuspid regurgitation. 6. Thrombocytopenia. 7. Psychiatric disorder. 8. alf resident. 9. Negative methicillin-resistant Staphylococcus aureus and vancomycin-resistant Enterococcus screens. 10. Penicillin allergy, unable to qualify. 11. Full Code. PLAN: 1. Continue Flagyl day #2 of to 14 and add Rocephin for urinary tract infection treatment. Aware, stated penicillin allergy. We will monitor. 2. Followup final cultures. 3. Monitor CBC and temperatures. 4. Monitor BMP. Thank you. We will follow. Jarvis Luciano M.D. DR: RALPH JOB#: [id number] CC: Yvette Romero M.D. Arash Alborzi, M.D
[2016-10-10 20:00] VITALS: BP 162/96
[2016-10-10] MEDS: Acetaminophen 500mg (ES) tab ORAL PRN (22:58)
--- NOTE | 2016-10-10 23:52 | Cardiology Progress Note ---
Assessment/Plan Status Narrative Cardiology consultation was made at the request of Dr. Hamlin on Oct 07, 2016. 1. NSTEMI, although CKMB are negative, awaiting the second trop levels, ASA 81, Lovenox 1mg/kg bid, atorvastatin 20 and metoprolol 2. Dyspnea with decrease O2, CXR and CT scan of chest were both negative, 12 lead ECG in am. Thi Jarquin M.D. Assessment/Plan 1. Elevated trop, chest pain free, likely due to tachycardia, no ischemic changes on the ECG, echo reveals normal wall motion (LVEF ~65%), medical therapy with ASA, statins and B-blockers. 2. DM, continue ASA and atorvastatin. 3. HTN 4. Dyslipidemia 5. PNA, repeat CXR in am. 6. ST, resolved, likely due to PNA., continue metoprolol, Subjective Subjective Sinus rhythm a 84. Denies any chest pain or SOB. Objective Last 24 Hour Vital Signs Date Time Temp Pulse Resp B/P Pulse Ox O2 Delivery O2 Flow Rate FiO2 10/10/16 20:00 97.8 84 21 162/96 97 Nasal Cannula 2.0 10/10/16 20:00 82 10/10/16 19:38 82 10/10/16 17:49 100 146/81 10/10/16 16:00 98.4 100 21 146/81 98 Nasal Cannula 2.0 10/10/16 16:00 79 10/10/16 12:00 96.9 75 18 135/73 98 Nasal Cannula 10/10/16 11:40 86 10/10/16 08:52 82 136/96 10/10/16 08:52 136/96 10/10/16 08:00 96.5 82 18 136/96 96 Nasal Cannula 2.0 10/10/16 07:35 80 10/10/16 04:20 97.0 99 20 181/90 99 Room Air 10/10/16 03:40 89 10/10/16 00:28 97.7 77 20 171/78 93 Room Air 10/09/16 23:54 89 Intake and Output 10/09/16 10/10/16 19:00 07:00 Intake Total 360 ml 360 ml Output Total 260 ml 1050 ml Balance 100 ml -690 ml Intake Oral 360 ml 260 ml IV Total 100 ml Output Urine Total 260 ml 1050 ml # Bowel Movements 1 1 2D Echo: LVEF 65%, Bi-atrial enlargement, LVH, RVSP 27 mmHg, Grade I LVDD Laboratory Tests Test 10/10/16 04:15 10/10/16 16:00 White Blood Count 4.7 K/UL (4.8-10.8) L 4.6 K/UL (4.8-10.8) L Red Blood Count 4.12 M/UL (4.20-5.40) L 3.86 M/UL (4.20-5.40) L Hemoglobin 11.8 G/DL (12.0-16.0) L 11.2 G/DL (12.0-16.0) L Hematocrit 36.0 % (37.0-47.0) L 33.7 % (37.0-47.0) L Mean Corpuscular Volume 87 FL (80-99) 87 FL (80-99) Mean Corpuscular Hemoglobin 28.7 PG (27.0-31.0) 28.9 PG (27.0-31.0) Mean Corpuscular Hemoglobin Concent 32.8 G/DL (32.0-36.0) 33.2 G/DL (32.0-36.0) Red Cell Distribution Width 12.4 % (11.6-14.8) 12.2 % (11.6-14.8) Platelet Count 141 K/UL (150-450) L 150 K/UL (150-450) Mean Platelet Volume 6.9 FL (6.5-10.1) 7.0 FL (6.5-10.1) Neutrophils (%) (Auto) 56.6 % (45.0-75.0) 57.0 % (45.0-75.0) Lymphocytes (%) (Auto) 26.1 % (20.0-45.0) 24.9 % (20.0-45.0) Monocytes (%) (Auto) 15.7 % (1.0-10.0) H 16.4 % (1.0-10.0) H Eosinophils (%) (Auto) 1.1 % (0.0-3.0) 1.2 % (0.0-3.0) Basophils (%) (Auto) 0.4 % (0.0-2.0) 0.5 % (0.0-2.0) Sodium Level 141 mEQ/L (135-145) Potassium Level 3.4 mEQ/L (3.4-4.9) Chloride Level 100 mEQ/L (98-107) Carbon Dioxide Level 29 mEQ/L (20-30) Anion Gap 12 (5-15) Blood Urea Nitrogen 10 mg/dL (7-23) Creatinine 0.5 mg/dL (0.5-0.9) Estimat Glomerular Filtration Rate > 60 mL/min (>60) Glucose Level 110 mg/dL (74-106) H Calcium Level 8.5 mg/dL (8.6-10.2) L Total Bilirubin 0.3 mg/dL (0.0-1.2) Aspartate Amino Transf (AST/SGOT) 13 U/L (5-40) Alanine Aminotransferase (ALT/SGPT) 10 U/L (3-33) Alkaline Phosphatase 58 U/L (35-104) Total Protein 5.5 g/dL (6.6-8.7) L Albumin 3.0 g/dL (3.5-5.2) L Globulin 2.5 g/dL Albumin/Globulin Ratio 1.2 (1.0-2.7) Microbiology Date/Time Source Procedure Growth Status 10/08/16 14:50 Stool Clostridium difficile Toxin Assay - Final Complete 10/08/16 13:00 Indwelling Cath Urine Culture - Final Escherichia Coli Complete Objective HEENT: Atraumatic and normocephalic, PERRLA, EOMI NECK: Negative JVD, no carotid bruit HEART: S1 and S2. Regular rate and rhythm, tachycardia CHEST: Clear ABDOMEN: Soft. non-tender, nondistended No organomegaly. MUSCULOSKELETAL: No edema, clubbing or cyanosis NEUROLOGIC: No focal signs, + dementia. THI JARQUIN Oct 10, 2016 23:52
[2016-10-11] VITALS (8 sets, daily range): BP systolic 102–155; BP diastolic 61–99
[2016-10-11 03:56] LABS: BASOPHILS % (AUTO) 0.5 % (0.0-2.0); EOSINOPHILS % (AUTO) 2.5 % (0.0-3.0); LYMPHOCYTES % (AUTO) 34.9 % (20.0-45.0); MEAN CORPUSCULAR HEMOGLOBIN 28.6 PG (27.0-31.0); MEAN CORPUSCULAR HGB CONC 32.9 G/DL (32.0-36.0); MEAN CORPUSCULAR VOLUME 87 FL (80-99); MEAN PLATELET VOLUME 6.2 FL (6.5-10.1); MONOCYTES % (AUTO) 16.8 % (1.0-10.0); NEUTROPHILS % (AUTO) 45.4 % (45.0-75.0); PLATELET COUNT 146 K/UL (150-450); RED CELL DISTRIBUTION WIDTH 12.3 % (11.6-14.8); WHITE BLOOD COUNT 4.3 K/UL (4.8-10.8)
[2016-10-11 04:20] LABS: ALANINE AMINOTRANSFERASE 23 U/L (3-33); ANION GAP 10 (5-15); ASPARTATE AMINO TRANSFERASE 27 U/L (5-40); CALCIUM 8.4 mg/dL (8.6-10.2); CARBON DIOXIDE 31 mEQ/L (20-30); CHLORIDE 106 mEQ/L (98-107); CREATININE 0.6 mg/dL (0.5-0.9); GLOMERULAR FILTRATION RATE > 60 mL/min (>60); HEMOLYSIS 4; POTASSIUM 3.7 mEQ/L (3.4-4.9); SODIUM 147 mEQ/L (135-145); TOTAL PROTEIN 5.5 g/dL (6.6-8.7)
[2016-10-11] MEDS: metroNIDAZOLE 500mg 100 ML IVPB SCH ×3 (06:10→21:11)
[2016-10-11] MEDS: NovoLOG Insulin Flexpen SUBQ SCH ×4 (06:10→21:11)
--- NOTE | 2016-10-11 08:11 | Pulmonology Progress Note ---
Assessment/Plan Assessment/Plan ASSESSMENT NSTEMI vs troponin leak hematuria- resolved C dif colitis UTI-HCAUTI/E coli bronchitis, possible PNA pulmonary nodule DM HTN obesity moderate TR schizoaffective disorder PLAN OF CARE tele s/p Lovenox, ( stopped due to hematuria), cardio follows, cardiac cath per cardio if in need now or later no cardiac complaints ECHO with EF 60-65% and RVSP of 27, moderate TR continue ASA, statin, BB continue O2 HHN prn sputum cx if able , blood cx preliminary negative, stool C dif positibe, urine cx + E coli antibiotic, ID follows trial of Theophylline antitussive prn CTA no gross central PE, + pulmonary nodule, L base atelectasis, possible consolidation repeat CXR check cancer tumor markers recommend PET CT as outpatient BP management with BB and MADHAV, optimize as needed BS management with SS of insulin hematuria resolved, urologist followed, monitor closely, HH stable gentle IV hydration renal US no hydro, normal bilateral kidney echogenicity continue Seroquel and Depakote for mood stabilization case discussed and evaluated by supervising physician Subjective Allergies: Coded Allergies: PENICILLINS (Verified Allergy, Unknown, 10/07/16) Subjective reports less cough on RA, pulse oximetry stable no signs of respiratory distress no chest pain Objective Last 24 Hour Vital Signs Date Time Temp Pulse Resp B/P Pulse Ox O2 Delivery O2 Flow Rate FiO2 10/11/16 04:00 79 10/11/16 04:00 97.7 75 20 108/61 99 Nasal Cannula 2.0 10/11/16 00:00 97.5 79 20 135/72 95 Nasal Cannula 2.0 10/11/16 00:00 81 10/10/16 20:00 97.8 84 21 162/96 97 Nasal Cannula 2.0 10/10/16 20:00 82 10/10/16 19:38 82 10/10/16 17:49 100 146/81 10/10/16 16:00 98.4 100 21 146/81 98 Nasal Cannula 2.0 10/10/16 16:00 79 10/10/16 12:00 96.9 75 18 135/73 98 Nasal Cannula 10/10/16 11:40 86 10/10/16 08:52 82 136/96 10/10/16 08:52 136/96 Intake and Output 10/10/16 10/11/16 19:00 07:00 Intake Total 360 ml Output Total 350 ml 500 ml Balance -350 ml -140 ml Intake Oral 260 ml IV Total 100 ml Output Urine Total 350 ml 500 ml General Appearance: no acute distress, other - obese female in NAD HEENT: normocephalic, atraumatic, anicteric Respiratory/Chest: lungs clear, no respiratory distress, no accessory muscle use Cardiovascular: normal peripheral pulses, normal rate, regular rhythm - SR on tele , no JVD Abdomen: normal bowel sounds, soft, non tender - obese Extremities: other - +1 edema BLE Neurologic/Psychiatric: alert, responsive, normal mood/affect Microbiology Date/Time Source Procedure Growth Status 10/08/16 14:50 Stool Clostridium difficile Toxin Assay - Final Complete 10/08/16 13:00 Indwelling Cath Urine Culture - Final Escherichia Coli Complete Laboratory Tests 10/10/16 16:00: White Blood Count 4.6L, Red Blood Count 3.86L, Hemoglobin 11.2L, Hematocrit 33.7L, Mean Corpuscular Volume 87, Mean Corpuscular Hemoglobin 28.9, Mean Corpuscular Hemoglobin Concent 33.2, Red Cell Distribution Width 12.2, Platelet Count 150, Mean Platelet Volume 7.0, Neutrophils (%) (Auto) 57.0, Lymphocytes (% ) (Auto) 24.9, Monocytes (%) (Auto) 16.4H, Eosinophils (%) (Auto) 1.2, Basophils (%) (Auto) 0.5 10/11/16 03:30: White Blood Count 4.3L, Red Blood Count 3.90L, Hemoglobin 11.2L, Hematocrit 33.9L, Mean Corpuscular Volume 87, Mean Corpuscular Hemoglobin 28.6, Mean Corpuscular Hemoglobin Concent 32.9, Red Cell Distribution Width 12.3, Platelet Count 146L, Mean Platelet Volume 6.2L, Neutrophils (%) (Auto) 45.4, Lymphocytes (%) (Auto) 34.9, Monocytes (%) (Auto) 16.8H, Eosinophils (%) (Auto) 2.5, Basophils (%) (Auto) 0.5, Sodium Level 147H, Potassium Level 3.7, Chloride Level 106, Carbon Dioxide Level 31H, Anion Gap 10, Blood Urea Nitrogen 17, Creatinine 0.6, Estimat Glomerular Filtration Rate > 60, Glucose Level 109H, Calcium Level 8.4L, Total Bilirubin < 0.2, Aspartate Amino Transf (AST/SGOT) 27 , Alanine Aminotransferase (ALT/SGPT) 23, Alkaline Phosphatase 68, Pro-B-Type Natriuretic Peptide 416H, Total Protein 5.5L, Albumin 2.8L, Globulin 2.7, Albumin/Globulin Ratio 1.0 Current Medications Medications (Trade) Dose Ordered Sig/Domingo Route PRN Reason Start Time Stop Time Status Last Admin Dose Admin Acetaminophen 500 mg 500 mg Q4H PRN ORAL Mild Pain/Temp > 100.5 10/10/16 22:45 11/09/16 22:44 10/10/16 22:58 Aspirin (Ecotrin) 81 mg DAILY ORAL 10/08/16 09:00 11/07/16 08:59 10/10/16 08:50 Atorvastatin Calcium 40 mg 40 mg BEDTIME ORAL 10/09/16 21:00 11/08/16 20:59 10/10/16 21:20 Ceftriaxone Sodium/Dextrose (Rocephin/D5W) 55 ml @ 110 mls/hr Q24H IVPB 10/10/16 14:00 10/17/16 13:59 10/10/16 14:09 Dextrose (D5W 1000ml) 1,000 ml @ 50 mls/hr Q20H IV 10/11/16 08:00 11/10/16 07:59 10/11/16 07:57 Dextrose (Dextrose 50%) STAT PRN IV Hypoglycemia 10/07/16 21:00 11/06/16 20:59 Divalproex Sodium (Depakote) 250 mg EVERY 12 HOURS ORAL 10/07/16 22:30 11/06/16 22:29 10/10/16 21:20 Docusate Sodium (Colace) 100 mg DAILY ORAL 10/08/16 09:00 11/07/16 08:59 Insulin Aspart (NovoLOG) BEFORE MEALS AND HS SUBQ 10/07/16 22:30 11/06/16 22:29 10/10/16 21:21 Levothyroxine Sodium (Synthroid) 75 mcg DAILY@0630 ORAL 10/08/16 06:30 11/07/16 06:29 10/11/16 06:10 Loperamide HCl (Imodium) 2 mg Q4H PRN ORAL Diarrhea 10/08/16 21:45 11/07/16 21:44 10/08/16 21:43 Metoprolol Tartrate (Lopressor) 50 mg BID ORAL 10/09/16 09:00 11/08/16 08:59 10/10/16 17:49 Metronidazole (Flagyl) 100 ml @ 100 mls/hr Q8HR IVPB 10/09/16 20:00 10/16/16 19:59 10/11/16 06:10 Nitroglycerin (Ntg) 0.4 mg [id number] X 3 DOSES PRN SL Prn Chest Pain 10/07/16 20:30 11/06/16 20:29 Pantoprazole (Protonix) 40 mg DAILY ORAL 10/08/16 09:00 11/07/16 08:59 10/10/16 08:50 Promethazine HCl/ Codeine (Phenergan with Codeine) 5 ml Q4H PRN ORAL For Cough 10/10/16 16:30 11/09/16 16:29 10/10/16 19:48 Quetiapine Fumarate 50 mg 50 mg BEDTIME ORAL 10/09/16 21:00 11/08/16 20:59 10/10/16 21:20 Frederic ([facility])Chiquita NP Oct 11, 2016 08:11
[2016-10-11] MEDS: Docusate 100mg cap ORAL SCH (09:00)
[2016-10-11] MEDS: Metoprolol 50mg tab ORAL SCH ×2 (09:12→19:12)
[2016-10-11] MEDS: Aspirin EC 81mg tab ORAL SCH (09:12)
--- NOTE | 2016-10-11 09:17 | Urology Progress Note ---
Assessment/Plan Assessment/Plan 1. Gross hematuria, which is clearing. 2. Urinary retention. 3. Neurogenic bladder. 4. Proteinuria. 5. UTI. hand irrigate tidwell PRN abx added (Rocephin) monitor h/h may need to hold asa Subjective Allergies: Coded Allergies: PENICILLINS (Verified Allergy, Unknown, 10/07/16) Subjective all noted Objective Last 24 Hour Vital Signs Date Time Temp Pulse Resp B/P Pulse Ox O2 Delivery O2 Flow Rate FiO2 10/11/16 09:12 93 102/78 10/11/16 08:00 98.2 93 17 102/78 94 Room Air 10/11/16 04:00 79 10/11/16 04:00 97.7 75 20 108/61 99 Nasal Cannula 2.0 10/11/16 00:00 97.5 79 20 135/72 95 Nasal Cannula 2.0 10/11/16 00:00 81 10/10/16 20:00 97.8 84 21 162/96 97 Nasal Cannula 2.0 10/10/16 20:00 82 10/10/16 19:38 82 10/10/16 17:49 100 146/81 10/10/16 16:00 98.4 100 21 146/81 98 Nasal Cannula 2.0 10/10/16 16:00 79 10/10/16 12:00 96.9 75 18 135/73 98 Nasal Cannula 10/10/16 11:40 86 Intake and Output 10/10/16 10/11/16 19:00 07:00 Intake Total 360 ml Output Total 350 ml 500 ml Balance -350 ml -140 ml Intake Oral 260 ml IV Total 100 ml Output Urine Total 350 ml 500 ml Microbiology Date/Time Source Procedure Growth Status 10/07/16 21:00 Nasal Nares MRSA Culture - Final NO METHICILLIN RESISTANT STAPH AUREUS... Complete 10/08/16 14:50 Stool Clostridium difficile Toxin Assay - Final Complete 10/08/16 13:00 Indwelling Cath Urine Culture - Final Escherichia Coli Complete 10/07/16 21:00 Rectum VRE Culture - Final NO VANCOMYCIN RESISTANT ENTEROCOCCUS ... Complete Current Medications Medications (Trade) Dose Ordered Sig/Domingo Route PRN Reason Start Time Stop Time Status Last Admin Dose Admin Acetaminophen 500 mg 500 mg Q4H PRN ORAL Mild Pain/Temp > 100.5 10/10/16 22:45 11/09/16 22:44 10/10/16 22:58 Aspirin (Ecotrin) 81 mg DAILY ORAL 10/08/16 09:00 11/07/16 08:59 10/11/16 09:12 Atorvastatin Calcium 40 mg 40 mg BEDTIME ORAL 10/09/16 21:00 11/08/16 20:59 10/10/16 21:20 Ceftriaxone Sodium/Dextrose (Rocephin/D5W) 55 ml @ 110 mls/hr Q24H IVPB 10/10/16 14:00 10/17/16 13:59 10/10/16 14:09 Dextrose (D5W 1000ml) 1,000 ml @ 50 mls/hr Q20H IV 10/11/16 08:00 11/10/16 07:59 10/11/16 07:57 Dextrose (Dextrose 50%) STAT PRN IV Hypoglycemia 10/07/16 21:00 11/06/16 20:59 Divalproex Sodium (Depakote) 250 mg EVERY 12 HOURS ORAL 10/07/16 22:30 11/06/16 22:29 10/11/16 09:12 Docusate Sodium (Colace) 100 mg DAILY ORAL 10/08/16 09:00 11/07/16 08:59 Insulin Aspart (NovoLOG) BEFORE MEALS AND HS SUBQ 10/07/16 22:30 11/06/16 22:29 10/10/16 21:21 Levothyroxine Sodium (Synthroid) 75 mcg DAILY@0630 ORAL 10/08/16 06:30 11/07/16 06:29 10/11/16 06:10 Loperamide HCl (Imodium) 2 mg Q4H PRN ORAL Diarrhea 10/08/16 21:45 11/07/16 21:44 10/08/16 21:43 Metoprolol Tartrate (Lopressor) 50 mg BID ORAL 10/09/16 09:00 11/08/16 08:59 10/11/16 09:12 Metronidazole (Flagyl) 100 ml @ 100 mls/hr Q8HR IVPB 10/09/16 20:00 10/19/16 23:59 10/11/16 06:10 Nitroglycerin (Ntg) 0.4 mg [id number] X 3 DOSES PRN SL Prn Chest Pain 10/07/16 20:30 11/06/16 20:29 Pantoprazole (Protonix) 40 mg DAILY ORAL 10/08/16 09:00 11/07/16 08:59 10/11/16 09:12 Promethazine HCl/ Codeine (Phenergan with Codeine) 5 ml Q4H PRN ORAL For Cough 10/10/16 16:30 11/09/16 16:29 10/10/16 19:48 Quetiapine Fumarate 50 mg 50 mg BEDTIME ORAL 10/09/16 21:00 11/08/16 20:59 10/10/16 21:20 Laboratory Tests 10/10/16 16:00: White Blood Count 4.6L, Red Blood Count 3.86L, Hemoglobin 11.2L, Hematocrit 33.7L, Mean Corpuscular Volume 87, Mean Corpuscular Hemoglobin 28.9, Mean Corpuscular Hemoglobin Concent 33.2, Red Cell Distribution Width 12.2, Platelet Count 150, Mean Platelet Volume 7.0, Neutrophils (%) (Auto) 57.0, Lymphocytes (% ) (Auto) 24.9, Monocytes (%) (Auto) 16.4H, Eosinophils (%) (Auto) 1.2, Basophils (%) (Auto) 0.5 10/11/16 03:30: White Blood Count 4.3L, Red Blood Count 3.90L, Hemoglobin 11.2L, Hematocrit 33.9L, Mean Corpuscular Volume 87, Mean Corpuscular Hemoglobin 28.6, Mean Corpuscular Hemoglobin Concent 32.9, Red Cell Distribution Width 12.3, Platelet Count 146L, Mean Platelet Volume 6.2L, Neutrophils (%) (Auto) 45.4, Lymphocytes (%) (Auto) 34.9, Monocytes (%) (Auto) 16.8H, Eosinophils (%) (Auto) 2.5, Basophils (%) (Auto) 0.5, Sodium Level 147H, Potassium Level 3.7, Chloride Level 106, Carbon Dioxide Level 31H, Anion Gap 10, Blood Urea Nitrogen 17, Creatinine 0.6, Estimat Glomerular Filtration Rate > 60, Glucose Level 109H, Calcium Level 8.4L, Total Bilirubin < 0.2, Aspartate Amino Transf (AST/SGOT) 27 , Alanine Aminotransferase (ALT/SGPT) 23, Alkaline Phosphatase 68, Pro-B-Type Natriuretic Peptide 416H, Total Protein 5.5L, Albumin 2.8L, Globulin 2.7, Albumin/Globulin Ratio 1.0 Height (Feet): 5 Height (Inches): 5.00 Weight (Pounds): 220 Objective exam urine is elenita renal u/s noted DUNCAN EDEN Oct 11, 2016 09:16
--- NOTE | 2016-10-11 09:27 | General Progress Note ---
Assessment/Plan Status: stable Assessment/Plan 1- C-diff colitis 2. HCA-UTI 3. Troponin leakage 4- Gross Hematuria 3- Psych d/o 4- Multiple joint OA 5. Abnormal Imaging finding in chest CT 6. Hyper Natremia 5- GI/DVT prophylaxia Plan: DC lovenox Stop transfer for cardiac cath for now consult pulmonary regarding incidental finding in CXR ID note reviewed IV fluid D5 initiated will monitor serum sodium Subjective ROS Limited/Unobtainable: No Constitutional: Reports: no symptoms Cardiovascular: Reports: no symptoms Respiratory: Reports: shortness of breath Allergies: Coded Allergies: PENICILLINS (Verified Allergy, Unknown, 10/07/16) Objective Last 24 Hour Vital Signs Date Time Temp Pulse Resp B/P Pulse Ox O2 Delivery O2 Flow Rate FiO2 10/11/16 09:12 93 102/78 10/11/16 08:00 98.2 93 17 102/78 94 Room Air 10/11/16 04:00 79 10/11/16 04:00 97.7 75 20 108/61 99 Nasal Cannula 2.0 10/11/16 00:00 97.5 79 20 135/72 95 Nasal Cannula 2.0 10/11/16 00:00 81 10/10/16 20:00 97.8 84 21 162/96 97 Nasal Cannula 2.0 10/10/16 20:00 82 10/10/16 19:38 82 10/10/16 17:49 100 146/81 10/10/16 16:00 98.4 100 21 146/81 98 Nasal Cannula 2.0 10/10/16 16:00 79 10/10/16 12:00 96.9 75 18 135/73 98 Nasal Cannula 10/10/16 11:40 86 Intake and Output 10/10/16 10/11/16 19:00 07:00 Intake Total 360 ml Output Total 350 ml 500 ml Balance -350 ml -140 ml Intake Oral 260 ml IV Total 100 ml Output Urine Total 350 ml 500 ml Laboratory Tests 10/10/16 16:00: White Blood Count 4.6L, Red Blood Count 3.86L, Hemoglobin 11.2L, Hematocrit 33.7L, Mean Corpuscular Volume 87, Mean Corpuscular Hemoglobin 28.9, Mean Corpuscular Hemoglobin Concent 33.2, Red Cell Distribution Width 12.2, Platelet Count 150, Mean Platelet Volume 7.0, Neutrophils (%) (Auto) 57.0, Lymphocytes (% ) (Auto) 24.9, Monocytes (%) (Auto) 16.4H, Eosinophils (%) (Auto) 1.2, Basophils (%) (Auto) 0.5 10/11/16 03:30: White Blood Count 4.3L, Red Blood Count 3.90L, Hemoglobin 11.2L, Hematocrit 33.9L, Mean Corpuscular Volume 87, Mean Corpuscular Hemoglobin 28.6, Mean Corpuscular Hemoglobin Concent 32.9, Red Cell Distribution Width 12.3, Platelet Count 146L, Mean Platelet Volume 6.2L, Neutrophils (%) (Auto) 45.4, Lymphocytes (%) (Auto) 34.9, Monocytes (%) (Auto) 16.8H, Eosinophils (%) (Auto) 2.5, Basophils (%) (Auto) 0.5, Sodium Level 147H, Potassium Level 3.7, Chloride Level 106, Carbon Dioxide Level 31H, Anion Gap 10, Blood Urea Nitrogen 17, Creatinine 0.6, Estimat Glomerular Filtration Rate > 60, Glucose Level 109H, Calcium Level 8.4L, Total Bilirubin < 0.2, Aspartate Amino Transf (AST/SGOT) 27 , Alanine Aminotransferase (ALT/SGPT) 23, Alkaline Phosphatase 68, Pro-B-Type Natriuretic Peptide 416H, Total Protein 5.5L, Albumin 2.8L, Globulin 2.7, Albumin/Globulin Ratio 1.0 Height (Feet): 5 Height (Inches): 5.00 Weight (Pounds): 220 General Appearance: WD/WN EENT: PERRL/EOMI Neck: supple Cardiovascular: normal rate Respiratory/Chest: lungs clear Abdomen: soft Extremities: non-tender 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
[2016-10-11 10:30] LABS: TROPONIN I < 0.30 ng/mL (<=0.30)
[2016-10-11] MEDS: cefTRIAXone 1 GM in D5W 55 ML IVPB SCH (13:09)
[2016-10-11 16:50] LABS: BASOPHILS % (AUTO) 0.8 % (0.0-2.0); EOSINOPHILS % (AUTO) 3.8 % (0.0-3.0); LYMPHOCYTES % (AUTO) 32.6 % (20.0-45.0); MEAN CORPUSCULAR HEMOGLOBIN 29.2 PG (27.0-31.0); MEAN CORPUSCULAR HGB CONC 33.5 G/DL (32.0-36.0); MEAN CORPUSCULAR VOLUME 87 FL (80-99); MEAN PLATELET VOLUME 7.5 FL (6.5-10.1); MONOCYTES % (AUTO) 14.1 % (1.0-10.0); NEUTROPHILS % (AUTO) 48.7 % (45.0-75.0); PLATELET COUNT 161 K/UL (150-450); RED BLOOD COUNT 3.77 M/UL (4.20-5.40); RED CELL DISTRIBUTION WIDTH 12.4 % (11.6-14.8); WHITE BLOOD COUNT 3.7 K/UL (4.8-10.8)
[2016-10-11] MEDS ORDERED: NS 275ml ONE (17:21)
--- NOTE | 2016-10-11 20:51 | Cardiology Progress Note ---
Assessment/Plan Status Narrative Cardiology consultation was made at the request of Dr. Hamlin on Oct 07, 2016. 1. NSTEMI, although CKMB are negative, awaiting the second trop levels, ASA 81, Lovenox 1mg/kg bid, atorvastatin 20 and metoprolol 2. Dyspnea with decrease O2, CXR and CT scan of chest were both negative, 12 lead ECG in am. Thi Jarquin M.D. Assessment/Plan 1. Elevated trop, chest pain free, no ischemic changes on the ECG, echo reveals normal wall motion (LVEF ~65%), medical therapy with ASA, statins and B- blockers. 2. DM, continue ASA and atorvastatin. 3. HTN, stage I, will increase metoprolol if HTN persists. 4. Dyslipidemia 5. PNA. 6. ST, resolved, likely due to PNA., continue metoprolol, Subjective Subjective Sinus rhythm a 83. Denies any chest pain or SOB. Objective Last 24 Hour Vital Signs Date Time Temp Pulse Resp B/P Pulse Ox O2 Delivery O2 Flow Rate FiO2 10/11/16 20:11 83 10/11/16 20:00 97.7 87 18 149/99 Nasal Cannula 2.0 98 10/11/16 19:12 88 155/87 10/11/16 16:00 88 10/11/16 16:00 97.0 79 18 155/87 Nasal Cannula 2.0 96 10/11/16 13:42 98.0 72 18 127/69 95 Nasal Cannula 2.0 10/11/16 13:41 98.0 72 18 144/80 95 Nasal Cannula 10/11/16 12:00 98.0 72 18 124/69 95 Nasal Cannula 2.0 10/11/16 12:00 65 10/11/16 09:12 93 102/78 10/11/16 08:00 72 10/11/16 08:00 98.2 93 17 102/78 94 Room Air 10/11/16 07:17 92 20 94 Room Air 21 10/11/16 07:15 90 18 94 Room Air 21 10/11/16 04:00 79 10/11/16 04:00 97.7 75 20 108/61 99 Nasal Cannula 2.0 10/11/16 00:00 97.5 79 20 135/72 95 Nasal Cannula 2.0 10/11/16 00:00 81 Intake and Output 10/10/16 10/11/16 19:00 07:00 Intake Total 360 ml Output Total 350 ml 500 ml Balance -350 ml -140 ml Intake Oral 260 ml IV Total 100 ml Output Urine Total 350 ml 500 ml 2D Echo: LVEF 65%, Bi-atrial enlargement, LVH, RVSP 27 mmHg, Grade I LVDD Laboratory Tests Test 10/11/16 03:30 10/11/16 09:45 10/11/16 16:15 White Blood Count 4.3 K/UL (4.8-10.8) L 3.7 K/UL (4.8-10.8) L Red Blood Count 3.90 M/UL (4.20-5.40) L 3.77 M/UL (4.20-5.40) L Hemoglobin 11.2 G/DL (12.0-16.0) L 11.0 G/DL (12.0-16.0) L Hematocrit 33.9 % (37.0-47.0) L 32.9 % (37.0-47.0) L Mean Corpuscular Volume 87 FL (80-99) 87 FL (80-99) Mean Corpuscular Hemoglobin 28.6 PG (27.0-31.0) 29.2 PG (27.0-31.0) Mean Corpuscular Hemoglobin Concent 32.9 G/DL (32.0-36.0) 33.5 G/DL (32.0-36.0) Red Cell Distribution Width 12.3 % (11.6-14.8) 12.4 % (11.6-14.8) Platelet Count 146 K/UL (150-450) L 161 K/UL (150-450) Mean Platelet Volume 6.2 FL (6.5-10.1) L 7.5 FL (6.5-10.1) Neutrophils (%) (Auto) 45.4 % (45.0-75.0) 48.7 % (45.0-75.0) Lymphocytes (%) (Auto) 34.9 % (20.0-45.0) 32.6 % (20.0-45.0) Monocytes (%) (Auto) 16.8 % (1.0-10.0) H 14.1 % (1.0-10.0) H Eosinophils (%) (Auto) 2.5 % (0.0-3.0) 3.8 % (0.0-3.0) H Basophils (%) (Auto) 0.5 % (0.0-2.0) 0.8 % (0.0-2.0) Sodium Level 147 mEQ/L (135-145) H Potassium Level 3.7 mEQ/L (3.4-4.9) Chloride Level 106 mEQ/L (98-107) Carbon Dioxide Level 31 mEQ/L (20-30) H Anion Gap 10 (5-15) Blood Urea Nitrogen 17 mg/dL (7-23) Creatinine 0.6 mg/dL (0.5-0.9) Estimat Glomerular Filtration Rate > 60 mL/min (>60) Glucose Level 109 mg/dL (74-106) H Calcium Level 8.4 mg/dL (8.6-10.2) L Total Bilirubin < 0.2 mg/dL (0.0-1.2) Aspartate Amino Transf (AST/SGOT) 27 U/L (5-40) Alanine Aminotransferase (ALT/SGPT) 23 U/L (3-33) Alkaline Phosphatase 68 U/L (35-104) Pro-B-Type Natriuretic Peptide 416 pg/mL (0-125) H Total Protein 5.5 g/dL (6.6-8.7) L Albumin 2.8 g/dL (3.5-5.2) L Globulin 2.7 g/dL Albumin/Globulin Ratio 1.0 (1.0-2.7) Troponin I < 0.30 ng/mL (<=0.30) Objective HEENT: Atraumatic and normocephalic, PERRLA, EOMI NECK: Negative JVD, no carotid bruit HEART: S1 and S2. Regular rate and rhythm, tachycardia CHEST: Clear ABDOMEN: Soft. non-tender, nondistended No organomegaly. MUSCULOSKELETAL: No edema, clubbing or cyanosis NEUROLOGIC: No focal signs, + dementia. THI JARQUIN Oct 11, 2016 20:51
[2016-10-12 00:20] VITALS: BP 151/92
[2016-10-12 04:20] VITALS: BP 106/67
[2016-10-12 06:00] LABS: BASOPHILS % (AUTO) 0.9 % (0.0-2.0); EOSINOPHILS % (AUTO) 4.9 % (0.0-3.0); MEAN CORPUSCULAR HEMOGLOBIN 28.8 PG (27.0-31.0); MEAN CORPUSCULAR HGB CONC 32.8 G/DL (32.0-36.0); MEAN CORPUSCULAR VOLUME 88 FL (80-99); MEAN PLATELET VOLUME 6.6 FL (6.5-10.1); MONOCYTES % (AUTO) 16.1 % (1.0-10.0); NEUTROPHILS % (AUTO) 39.2 % (45.0-75.0); PLATELET COUNT 165 K/UL (150-450); RED BLOOD COUNT 3.98 M/UL (4.20-5.40); RED CELL DISTRIBUTION WIDTH 12.3 % (11.6-14.8); WHITE BLOOD COUNT 4.8 K/UL (4.8-10.8)
[2016-10-12 06:10] LABS: ANION GAP 10 (5-15); CALCIUM 8.7 mg/dL (8.6-10.2); CARBON DIOXIDE 33 mEQ/L (20-30); CHLORIDE 103 mEQ/L (98-107); CREATININE 0.6 mg/dL (0.5-0.9); GLOMERULAR FILTRATION RATE > 60 mL/min (>60); HEMOLYSIS 3; POTASSIUM 3.6 mEQ/L (3.4-4.9); SODIUM 146 mEQ/L (135-145)
[2016-10-12] MEDS: metroNIDAZOLE 500mg 100 ML IVPB SCH ×2 (06:22→14:09)
[2016-10-12] MEDS: NovoLOG Insulin Flexpen SUBQ SCH ×4 (06:23→21:00)
[2016-10-12 08:00] VITALS: BP 135/89
--- NOTE | 2016-10-12 08:55 | Urology Progress Note ---
Assessment/Plan Assessment/Plan 1. Gross hematuria, which is clearing. 2. Urinary retention hx. 3. Neurogenic bladder. 4. Proteinuria. 5. UTI. tidwell out, monitor for voiding reinsert tidwell PRN abx (Rocephin) monitor h/h may need to hold asa Subjective Allergies: Coded Allergies: PENICILLINS (Verified Allergy, Unknown, 10/07/16) Subjective all noted, tidwell removed last night, voided, urine reported clearing Objective Last 24 Hour Vital Signs Date Time Temp Pulse Resp B/P Pulse Ox O2 Delivery O2 Flow Rate FiO2 10/12/16 04:20 97.0 69 20 106/67 96 Nasal Cannula 2.0 10/12/16 04:00 74 10/12/16 00:20 98.0 81 20 151/92 98 Nasal Cannula 2.0 10/11/16 23:44 79 10/11/16 20:11 83 10/11/16 20:00 97.7 87 18 149/99 Nasal Cannula 2.0 98 10/11/16 19:12 88 155/87 10/11/16 16:00 88 10/11/16 16:00 97.0 79 18 155/87 Nasal Cannula 2.0 96 10/11/16 13:42 98.0 72 18 127/69 95 Nasal Cannula 2.0 10/11/16 13:41 98.0 72 18 144/80 95 Nasal Cannula 10/11/16 12:00 98.0 72 18 124/69 95 Nasal Cannula 2.0 10/11/16 12:00 65 10/11/16 09:12 93 102/78 Intake and Output 10/11/16 10/12/16 19:00 07:00 Intake Total 1350 ml 400 ml Output Total 450 ml 1 ml Balance 900 ml 399 ml Intake Oral 640 ml IV Total 710 ml 400 ml Output Urine Total 450 ml 1 ml # Voids 2 Microbiology Date/Time Source Procedure Growth Status 10/07/16 21:00 Nasal Nares MRSA Culture - Final NO METHICILLIN RESISTANT STAPH AUREUS... Complete 10/08/16 14:50 Stool Clostridium difficile Toxin Assay - Final Complete 10/08/16 13:00 Indwelling Cath Urine Culture - Final Escherichia Coli Complete 10/07/16 21:00 Rectum VRE Culture - Final NO VANCOMYCIN RESISTANT ENTEROCOCCUS ... Complete Current Medications Medications (Trade) Dose Ordered Sig/Domingo Route PRN Reason Start Time Stop Time Status Last Admin Dose Admin Acetaminophen 500 mg 500 mg Q4H PRN ORAL Mild Pain/Temp > 100.5 10/10/16 22:45 11/09/16 22:44 10/10/16 22:58 Aspirin (Ecotrin) 81 mg DAILY ORAL 10/08/16 09:00 11/07/16 08:59 10/11/16 09:12 Atorvastatin Calcium 40 mg 40 mg BEDTIME ORAL 10/09/16 21:00 11/08/16 20:59 10/11/16 21:08 Ceftriaxone Sodium/Dextrose (Rocephin/D5W) 55 ml @ 110 mls/hr Q24H IVPB 10/10/16 14:00 10/17/16 13:59 10/11/16 13:09 Dextrose (D5W 1000ml) 1,000 ml @ 50 mls/hr Q20H IV 10/11/16 08:00 11/10/16 07:59 10/12/16 04:37 Dextrose (Dextrose 50%) STAT PRN IV Hypoglycemia 10/07/16 21:00 11/06/16 20:59 Divalproex Sodium (Depakote) 250 mg EVERY 12 HOURS ORAL 10/07/16 22:30 11/06/16 22:29 10/11/16 21:09 Docusate Sodium (Colace) 100 mg DAILY ORAL 10/08/16 09:00 11/07/16 08:59 Insulin Aspart (NovoLOG) BEFORE MEALS AND HS SUBQ 10/07/16 22:30 11/06/16 22:29 10/11/16 21:11 Levothyroxine Sodium (Synthroid) 75 mcg DAILY@0630 ORAL 10/08/16 06:30 11/07/16 06:29 10/12/16 06:22 Loperamide HCl (Imodium) 2 mg Q4H PRN ORAL Diarrhea 10/08/16 21:45 11/07/16 21:44 10/08/16 21:43 Metoprolol Tartrate (Lopressor) 50 mg BID ORAL 10/09/16 09:00 11/08/16 08:59 10/11/16 19:12 Metronidazole (Flagyl) 100 ml @ 100 mls/hr Q8HR IVPB 10/09/16 20:00 10/19/16 23:59 10/12/16 06:22 Nitroglycerin (Ntg) 0.4 mg [id number] X 3 DOSES PRN SL Prn Chest Pain 10/07/16 20:30 11/06/16 20:29 Pantoprazole (Protonix) 40 mg DAILY ORAL 10/08/16 09:00 11/07/16 08:59 10/11/16 09:12 Promethazine HCl/ Codeine (Phenergan with Codeine) 5 ml Q4H PRN ORAL For Cough 10/10/16 16:30 11/09/16 16:29 10/10/16 19:48 Quetiapine Fumarate 50 mg 50 mg BEDTIME ORAL 10/09/16 21:00 11/08/16 20:59 10/11/16 21:09 Laboratory Tests 10/11/16 09:45: Troponin I < 0.30 10/11/16 16:15: White Blood Count 3.7L, Red Blood Count 3.77L, Hemoglobin 11.0L, Hematocrit 32.9L, Mean Corpuscular Volume 87, Mean Corpuscular Hemoglobin 29.2, Mean Corpuscular Hemoglobin Concent 33.5, Red Cell Distribution Width 12.4, Platelet Count 161, Mean Platelet Volume 7.5, Neutrophils (%) (Auto) 48.7, Lymphocytes (% ) (Auto) 32.6, Monocytes (%) (Auto) 14.1H, Eosinophils (%) (Auto) 3.8H, Basophils (%) (Auto) 0.8 10/12/16 05:00: White Blood Count 4.8, Red Blood Count 3.98L, Hemoglobin 11.4L, Hematocrit 34.9L , Mean Corpuscular Volume 88, Mean Corpuscular Hemoglobin 28.8, Mean Corpuscular Hemoglobin Concent 32.8, Red Cell Distribution Width 12.3, Platelet Count 165, Mean Platelet Volume 6.6, Neutrophils (%) (Auto) 39.2L, Lymphocytes ( %) (Auto) 39.0, Monocytes (%) (Auto) 16.1H, Eosinophils (%) (Auto) 4.9H, Basophils (%) (Auto) 0.9, Sodium Level 146H, Potassium Level 3.6, Chloride Level 103, Carbon Dioxide Level 33H, Anion Gap 10, Blood Urea Nitrogen 12, Creatinine 0.6, Estimat Glomerular Filtration Rate > 60, Glucose Level 88, Calcium Level 8.7, Carcinoembryonic Antigen 3.3H, CA 15-3 Antigen [Pending], CA 19-9 Antigen 8.75, CA 125 Antigen [Pending] Height (Feet): 5 Height (Inches): 5.00 Weight (Pounds): 220 Objective exam urine is elenita renal u/s noted DUNCAN EDEN Oct 12, 2016 08:55
[2016-10-12] MEDS: Aspirin EC 81mg tab ORAL SCH (09:18)
[2016-10-12] MEDS: Metoprolol 50mg tab ORAL SCH ×2 (09:18→17:42)
[2016-10-12] MEDS: Docusate 100mg cap ORAL SCH (09:18)
--- NOTE | 2016-10-12 10:35 | General Progress Note ---
Assessment/Plan Status: stable Assessment/Plan 1- C-diff colitis 2. HCA-UTI 3. Troponin leakage 4- Gross Hematuria 3- Psych d/o 4- Multiple joint OA 5. Abnormal Imaging finding in chest CT 6. Hyper Natremia 5- GI/DVT prophylaxia Plan: DC lovenox Stop transfer for cardiac cath for now consult pulmonary regarding incidental finding in CXR Urology note reviewed IV fluid D5 initiated will monitor serum sodium in light of persistent hematuria , I will DC ASA for now Subjective ROS Limited/Unobtainable: No Constitutional: Reports: weakness HEENT: Reports: no symptoms Cardiovascular: Reports: no symptoms Respiratory: Reports: no symptoms Gastrointestinal/Abdominal: Reports: no symptoms Allergies: Coded Allergies: PENICILLINS (Verified Allergy, Unknown, 10/07/16) Objective Last 24 Hour Vital Signs Date Time Temp Pulse Resp B/P Pulse Ox O2 Delivery O2 Flow Rate FiO2 10/12/16 09:18 87 135/89 10/12/16 08:00 71 10/12/16 08:00 97.2 87 18 135/89 96 Nasal Cannula 2.0 10/12/16 04:20 97.0 69 20 106/67 96 Nasal Cannula 2.0 10/12/16 04:00 74 10/12/16 00:20 98.0 81 20 151/92 98 Nasal Cannula 2.0 10/11/16 23:44 79 10/11/16 20:11 83 10/11/16 20:00 97.7 87 18 149/99 Nasal Cannula 2.0 98 10/11/16 19:12 88 155/87 10/11/16 16:00 88 10/11/16 16:00 97.0 79 18 155/87 Nasal Cannula 2.0 96 10/11/16 13:42 98.0 72 18 127/69 95 Nasal Cannula 2.0 10/11/16 13:41 98.0 72 18 144/80 95 Nasal Cannula 10/11/16 12:00 98.0 72 18 124/69 95 Nasal Cannula 2.0 10/11/16 12:00 65 Intake and Output 10/11/16 10/12/16 19:00 07:00 Intake Total 1350 ml 400 ml Output Total 450 ml 1 ml Balance 900 ml 399 ml Intake Oral 640 ml IV Total 710 ml 400 ml Output Urine Total 450 ml 1 ml # Voids 2 Laboratory Tests 10/11/16 16:15: White Blood Count 3.7L, Red Blood Count 3.77L, Hemoglobin 11.0L, Hematocrit 32.9L, Mean Corpuscular Volume 87, Mean Corpuscular Hemoglobin 29.2, Mean Corpuscular Hemoglobin Concent 33.5, Red Cell Distribution Width 12.4, Platelet Count 161, Mean Platelet Volume 7.5, Neutrophils (%) (Auto) 48.7, Lymphocytes (% ) (Auto) 32.6, Monocytes (%) (Auto) 14.1H, Eosinophils (%) (Auto) 3.8H, Basophils (%) (Auto) 0.8 10/12/16 05:00: White Blood Count 4.8, Red Blood Count 3.98L, Hemoglobin 11.4L, Hematocrit 34.9L , Mean Corpuscular Volume 88, Mean Corpuscular Hemoglobin 28.8, Mean Corpuscular Hemoglobin Concent 32.8, Red Cell Distribution Width 12.3, Platelet Count 165, Mean Platelet Volume 6.6, Neutrophils (%) (Auto) 39.2L, Lymphocytes ( %) (Auto) 39.0, Monocytes (%) (Auto) 16.1H, Eosinophils (%) (Auto) 4.9H, Basophils (%) (Auto) 0.9, Sodium Level 146H, Potassium Level 3.6, Chloride Level 103, Carbon Dioxide Level 33H, Anion Gap 10, Blood Urea Nitrogen 12, Creatinine 0.6, Estimat Glomerular Filtration Rate > 60, Glucose Level 88, Calcium Level 8.7, Carcinoembryonic Antigen 3.3H, CA 15-3 Antigen [Pending], CA 19-9 Antigen 8.75, CA 125 Antigen [Pending] Height (Feet): 5 Height (Inches): 5.00 Weight (Pounds): 220 General Appearance: no apparent distress Neck: supple Cardiovascular: normal rate Respiratory/Chest: lungs clear Abdomen: soft Extremities: non-tender 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
[2016-10-12] MEDS ORDERED: DuoNeb 0.5-3(2.5)mg/3ml neb HHN PRN (11:30)
--- NOTE | 2016-10-12 11:34 | Pulmonology Progress Note ---
Assessment/Plan Assessment/Plan ASSESSMENT NSTEMI vs troponin leak hematuria- resolved C dif colitis UTI-HCAUTI/E coli bronchitis, possible PNA pulmonary nodule DM HTN obesity moderate TR schizoaffective disorder PLAN OF CARE tele s/p Lovenox, ( stopped due to hematuria), cardio follows, cardiac cath per cardio if in need now or later no cardiac complaints ECHO with EF 60-65% and RVSP of 27, moderate TR continue ASA, statin, BB continue O2 HHN prn sputum cx if able , blood cx preliminary negative, stool C dif positive, urine cx + E coli antibiotic, ID follows trial of Theophylline antitussive prn CTA no gross central PE, + pulmonary nodule, L base atelectasis, possible consolidation repeat CXR check cancer tumor markers, CEA with mild elevation, rest pending recommend further PET CT as outpatient BP management with BB and MADHAV, optimize as needed BS management with SS of insulin hematuria resolved, urologist followed, monitor closely, HH stable gentle IV hydration renal US no hydro, normal bilateral kidney echogenicity continue Seroquel and Depakote for mood stabilization case discussed and evaluated by supervising physician Subjective Allergies: Coded Allergies: PENICILLINS (Verified Allergy, Unknown, 10/07/16) Subjective reports less cough on RA, pulse oximetry stable no signs of respiratory distress no chest pain Objective Last 24 Hour Vital Signs Date Time Temp Pulse Resp B/P Pulse Ox O2 Delivery O2 Flow Rate FiO2 10/12/16 09:18 87 135/89 10/12/16 08:00 71 10/12/16 08:00 97.2 87 18 135/89 96 Nasal Cannula 2.0 10/12/16 04:20 97.0 69 20 106/67 96 Nasal Cannula 2.0 10/12/16 04:00 74 10/12/16 00:20 98.0 81 20 151/92 98 Nasal Cannula 2.0 10/11/16 23:44 79 10/11/16 20:11 83 10/11/16 20:00 97.7 87 18 149/99 Nasal Cannula 2.0 98 10/11/16 19:12 88 155/87 10/11/16 16:00 88 10/11/16 16:00 97.0 79 18 155/87 Nasal Cannula 2.0 96 10/11/16 13:42 98.0 72 18 127/69 95 Nasal Cannula 2.0 10/11/16 13:41 98.0 72 18 144/80 95 Nasal Cannula 10/11/16 12:00 98.0 72 18 124/69 95 Nasal Cannula 2.0 10/11/16 12:00 65 Intake and Output 10/11/16 10/12/16 19:00 07:00 Intake Total 1350 ml 400 ml Output Total 450 ml 1 ml Balance 900 ml 399 ml Intake Oral 640 ml IV Total 710 ml 400 ml Output Urine Total 450 ml 1 ml # Voids 2 Objective General Appearance: no acute distress, obese female in NAD HEENT: normocephalic, atraumatic, anicteric Respiratory/Chest: lungs clear, no respiratory distress, no accessory muscle use Cardiovascular: normal peripheral pulses, normal rate, regular rhythm , SR on tele , no JVD Abdomen: normal bowel sounds, soft, non tender - obese Extremities: other - +1 edema BLE Neurologic/Psychiatric: alert, responsive, normal mood/affect Microbiology Date/Time Source Procedure Growth Status 10/10/16 19:18 Sputum Gram Stain - Final Resulted 10/10/16 19:18 Sputum Sputum Culture Pending Resulted Laboratory Tests 10/11/16 16:15: White Blood Count 3.7L, Red Blood Count 3.77L, Hemoglobin 11.0L, Hematocrit 32.9L, Mean Corpuscular Volume 87, Mean Corpuscular Hemoglobin 29.2, Mean Corpuscular Hemoglobin Concent 33.5, Red Cell Distribution Width 12.4, Platelet Count 161, Mean Platelet Volume 7.5, Neutrophils (%) (Auto) 48.7, Lymphocytes (% ) (Auto) 32.6, Monocytes (%) (Auto) 14.1H, Eosinophils (%) (Auto) 3.8H, Basophils (%) (Auto) 0.8 10/12/16 05:00: White Blood Count 4.8, Red Blood Count 3.98L, Hemoglobin 11.4L, Hematocrit 34.9L , Mean Corpuscular Volume 88, Mean Corpuscular Hemoglobin 28.8, Mean Corpuscular Hemoglobin Concent 32.8, Red Cell Distribution Width 12.3, Platelet Count 165, Mean Platelet Volume 6.6, Neutrophils (%) (Auto) 39.2L, Lymphocytes ( %) (Auto) 39.0, Monocytes (%) (Auto) 16.1H, Eosinophils (%) (Auto) 4.9H, Basophils (%) (Auto) 0.9, Sodium Level 146H, Potassium Level 3.6, Chloride Level 103, Carbon Dioxide Level 33H, Anion Gap 10, Blood Urea Nitrogen 12, Creatinine 0.6, Estimat Glomerular Filtration Rate > 60, Glucose Level 88, Calcium Level 8.7, Carcinoembryonic Antigen 3.3H, CA 15-3 Antigen [Pending], CA 19-9 Antigen 8.75, CA 125 Antigen [Pending] Current Medications Medications (Trade) Dose Ordered Sig/Domingo Route PRN Reason Start Time Stop Time Status Last Admin Dose Admin Acetaminophen 500 mg 500 mg Q4H PRN ORAL Mild Pain/Temp > 100.5 10/10/16 22:45 11/09/16 22:44 10/10/16 22:58 Atorvastatin Calcium 40 mg 40 mg BEDTIME ORAL 10/09/16 21:00 11/08/16 20:59 10/11/16 21:08 Ceftriaxone Sodium/Dextrose (Rocephin/D5W) 55 ml @ 110 mls/hr Q24H IVPB 10/10/16 14:00 10/17/16 13:59 10/11/16 13:09 Dextrose (D5W 1000ml) 1,000 ml @ 50 mls/hr Q20H IV 10/11/16 08:00 11/10/16 07:59 10/12/16 04:37 Dextrose (Dextrose 50%) STAT PRN IV Hypoglycemia 10/07/16 21:00 11/06/16 20:59 Divalproex Sodium (Depakote) 250 mg EVERY 12 HOURS ORAL 10/07/16 22:30 11/06/16 22:29 10/12/16 09:18 Docusate Sodium (Colace) 100 mg DAILY ORAL 10/08/16 09:00 11/07/16 08:59 10/12/16 09:18 Insulin Aspart (NovoLOG) BEFORE MEALS AND HS SUBQ 10/07/16 22:30 11/06/16 22:29 10/11/16 21:11 Levothyroxine Sodium (Synthroid) 75 mcg DAILY@0630 ORAL 10/08/16 06:30 11/07/16 06:29 10/12/16 06:22 Loperamide HCl (Imodium) 2 mg Q4H PRN ORAL Diarrhea 10/08/16 21:45 11/07/16 21:44 10/08/16 21:43 Metoprolol Tartrate (Lopressor) 50 mg BID ORAL 10/09/16 09:00 11/08/16 08:59 10/12/16 09:18 Metronidazole (Flagyl) 100 ml @ 100 mls/hr Q8HR IVPB 10/09/16 20:00 10/19/16 23:59 10/12/16 06:22 Nitroglycerin (Ntg) 0.4 mg [id number] X 3 DOSES PRN SL Prn Chest Pain 10/07/16 20:30 11/06/16 20:29 Pantoprazole (Protonix) 40 mg DAILY ORAL 10/08/16 09:00 11/07/16 08:59 10/12/16 09:18 Promethazine HCl/ Codeine (Phenergan with Codeine) 5 ml Q4H PRN ORAL For Cough 10/10/16 16:30 11/09/16 16:29 10/10/16 19:48 Quetiapine Fumarate 50 mg 50 mg BEDTIME ORAL 10/09/16 21:00 11/08/16 20:59 10/11/16 21:09 Frederic ([facility])Chiquita NP Oct 12, 2016 11:33
[2016-10-12 12:00] VITALS: BP 117/86
--- NOTE | 2016-10-12 12:37 | Infectious Diseases Prog Note ---
Assessment/Plan Assessment/Plan ASSESSMENT: 70 y/o female with: // C.difficile diarrhea - improved on immodium // Possible complicated E.coli UTI with gross hematuria - UA benign - US: tidwell, no stones or hydronephrosis - h/o urinary retention, neurogenic bladder // Periodontal disease // Leukopenia, afebrile // NSTEMI / elevated troponin - cardiology following - TTE: EF 60-65%, grade I diastolic dysfunction, mod TR // Masslike opacity inferomedial right hemithorax, probably just a prominent unopacified suprahepatic inferior vena cava // 19 mm arterial phase enhancing lesion in the dome of the right lobe of the liver. // Thrombocytopenia // Psych disorder // [place] resident // Negative MRSA, VRE screens // PCN allergy - unable to qualify. Tolerating rocephin // Full Code PLAN: - continue flagyl d# 4 / , rocephin d# 3 / UTI Rx - f/u final cultures - monitor CBC, temperatures - monitor BMP Subjective Allergies: Coded Allergies: PENICILLINS (Verified Allergy, Unknown, 10/07/16) Subjective remains afebrile. comfortable Objective Vital Signs Last 24 Hour Vital Signs Date Time Temp Pulse Resp B/P Pulse Ox O2 Delivery O2 Flow Rate FiO2 10/12/16 09:18 87 135/89 10/12/16 08:00 71 10/12/16 08:00 97.2 87 18 135/89 96 Nasal Cannula 2.0 10/12/16 04:20 97.0 69 20 106/67 96 Nasal Cannula 2.0 10/12/16 04:00 74 10/12/16 00:20 98.0 81 20 151/92 98 Nasal Cannula 2.0 10/11/16 23:44 79 10/11/16 20:11 83 10/11/16 20:00 97.7 87 18 149/99 Nasal Cannula 2.0 98 10/11/16 19:12 88 155/87 10/11/16 16:00 88 10/11/16 16:00 97.0 79 18 155/87 Nasal Cannula 2.0 96 10/11/16 13:42 98.0 72 18 127/69 95 Nasal Cannula 2.0 10/11/16 13:41 98.0 72 18 144/80 95 Nasal Cannula Height (Feet): 5 Height (Inches): 5.00 Weight (Pounds): 220 General Appearance: no acute distress Respiratory/Chest: no respiratory distress Cardiovascular: normal rate, regular rhythm Abdomen: normal bowel sounds, soft, non tender, non distended Microbiology Date/Time Source Procedure Growth Status 10/10/16 19:18 Sputum Gram Stain - Final Resulted 10/10/16 19:18 Sputum Sputum Culture - Preliminary NORMAL UPPER RESPIRATORY CARLITO PRESENT Resulted Laboratory Tests Test 10/11/16 16:15 10/12/16 05:00 White Blood Count 3.7 K/UL (4.8-10.8) L 4.8 K/UL (4.8-10.8) Red Blood Count 3.77 M/UL (4.20-5.40) L 3.98 M/UL (4.20-5.40) L Hemoglobin 11.0 G/DL (12.0-16.0) L 11.4 G/DL (12.0-16.0) L Hematocrit 32.9 % (37.0-47.0) L 34.9 % (37.0-47.0) L Mean Corpuscular Volume 87 FL (80-99) 88 FL (80-99) Mean Corpuscular Hemoglobin 29.2 PG (27.0-31.0) 28.8 PG (27.0-31.0) Mean Corpuscular Hemoglobin Concent 33.5 G/DL (32.0-36.0) 32.8 G/DL (32.0-36.0) Red Cell Distribution Width 12.4 % (11.6-14.8) 12.3 % (11.6-14.8) Platelet Count 161 K/UL (150-450) 165 K/UL (150-450) Mean Platelet Volume 7.5 FL (6.5-10.1) 6.6 FL (6.5-10.1) Neutrophils (%) (Auto) 48.7 % (45.0-75.0) 39.2 % (45.0-75.0) L Lymphocytes (%) (Auto) 32.6 % (20.0-45.0) 39.0 % (20.0-45.0) Monocytes (%) (Auto) 14.1 % (1.0-10.0) H 16.1 % (1.0-10.0) H Eosinophils (%) (Auto) 3.8 % (0.0-3.0) H 4.9 % (0.0-3.0) H Basophils (%) (Auto) 0.8 % (0.0-2.0) 0.9 % (0.0-2.0) Sodium Level 146 mEQ/L (135-145) H Potassium Level 3.6 mEQ/L (3.4-4.9) Chloride Level 103 mEQ/L (98-107) Carbon Dioxide Level 33 mEQ/L (20-30) H Anion Gap 10 (5-15) Blood Urea Nitrogen 12 mg/dL (7-23) Creatinine 0.6 mg/dL (0.5-0.9) Estimat Glomerular Filtration Rate > 60 mL/min (>60) Glucose Level 88 mg/dL (74-106) Calcium Level 8.7 mg/dL (8.6-10.2) Carcinoembryonic Antigen 3.3 ng/mL H CA 15-3 Antigen Pending CA 19-9 Antigen 8.75 U/mL (< 37) CA 125 Antigen Pending Current Medications Medications (Trade) Dose Ordered Sig/Domingo Route PRN Reason Start Time Stop Time Status Last Admin Dose Admin Acetaminophen 500 mg 500 mg Q4H PRN ORAL Mild Pain/Temp > 100.5 10/10/16 22:45 11/09/16 22:44 10/10/16 22:58 Albuterol/ Ipratropium (DuoNeb 0.5-3(2.5)mg/3ml) 3 ml Q4H PRN HHN Shortness of Breath 10/12/16 11:30 10/17/16 11:29 Atorvastatin Calcium 40 mg 40 mg BEDTIME ORAL 10/09/16 21:00 11/08/16 20:59 10/11/16 21:08 Ceftriaxone Sodium/Dextrose (Rocephin/D5W) 55 ml @ 110 mls/hr Q24H IVPB 10/10/16 14:00 10/17/16 13:59 10/11/16 13:09 Dextrose (D5W 1000ml) 1,000 ml @ 50 mls/hr Q20H IV 10/11/16 08:00 11/10/16 07:59 10/12/16 04:37 Dextrose (Dextrose 50%) STAT PRN IV Hypoglycemia 10/07/16 21:00 11/06/16 20:59 Divalproex Sodium (Depakote) 250 mg EVERY 12 HOURS ORAL 10/07/16 22:30 11/06/16 22:29 10/12/16 09:18 Docusate Sodium (Colace) 100 mg DAILY ORAL 10/08/16 09:00 11/07/16 08:59 10/12/16 09:18 Insulin Aspart (NovoLOG) BEFORE MEALS AND HS SUBQ 10/07/16 22:30 11/06/16 22:29 10/12/16 11:38 Levothyroxine Sodium (Synthroid) 75 mcg DAILY@0630 ORAL 10/08/16 06:30 11/07/16 06:29 10/12/16 06:22 Loperamide HCl (Imodium) 2 mg Q4H PRN ORAL Diarrhea 10/08/16 21:45 11/07/16 21:44 10/08/16 21:43 Metoprolol Tartrate (Lopressor) 50 mg BID ORAL 10/09/16 09:00 11/08/16 08:59 10/12/16 09:18 Metronidazole (Flagyl) 100 ml @ 100 mls/hr Q8HR IVPB 10/09/16 20:00 10/19/16 23:59 10/12/16 06:22 Nitroglycerin (Ntg) 0.4 mg [id number] X 3 DOSES PRN SL Prn Chest Pain 10/07/16 20:30 11/06/16 20:29 Oxymetazoline HCl (Afrin Nasal [place]) 1 spray TID NASAL 10/12/16 13:00 10/14/16 09:01 Pantoprazole (Protonix) 40 mg DAILY ORAL 10/08/16 09:00 11/07/16 08:59 10/12/16 09:18 Promethazine HCl/ Codeine (Phenergan with Codeine) 5 ml Q4H PRN ORAL For Cough 10/10/16 16:30 11/09/16 16:29 10/10/16 19:48 Quetiapine Fumarate 50 mg 50 mg BEDTIME ORAL 10/09/16 21:00 11/08/16 20:59 10/11/16 21:09 OKTA HERZOG Oct 12, 2016 12:36
[2016-10-12] MEDS: Oxymetazoline 0.05% Na Spray 30ml NASAL SCH ×2 (13:16→17:42)
[2016-10-12] MEDS: cefTRIAXone 1 GM in D5W 55 ML IVPB SCH (13:16)
[2016-10-12 16:00] VITALS: BP 142/75
[2016-10-12] MEDS ORDERED: NS 275ml ONE (17:29)
[2016-10-12 20:00] VITALS: BP 156/90
[2016-10-13] VITALS: BP 145/82
[2016-10-13] MEDS: metroNIDAZOLE 500mg 100 ML IVPB SCH ×4 (00:22→21:34)
[2016-10-13 04:00] VITALS: BP 152/73
[2016-10-13 06:07] LABS: BASOPHILS % (AUTO) 0.5 % (0.0-2.0); LYMPHOCYTES % (AUTO) 38.2 % (20.0-45.0); MEAN CORPUSCULAR HEMOGLOBIN 28.6 PG (27.0-31.0); MEAN CORPUSCULAR HGB CONC 32.7 G/DL (32.0-36.0); MEAN CORPUSCULAR VOLUME 87 FL (80-99); MEAN PLATELET VOLUME 6.9 FL (6.5-10.1); MONOCYTES % (AUTO) 15.1 % (1.0-10.0); NEUTROPHILS % (AUTO) 41.2 % (45.0-75.0); PLATELET COUNT 182 K/UL (150-450); RED BLOOD COUNT 3.85 M/UL (4.20-5.40); RED CELL DISTRIBUTION WIDTH 12.4 % (11.6-14.8); WHITE BLOOD COUNT 5.6 K/UL (4.8-10.8)
[2016-10-13] MEDS: NovoLOG Insulin Flexpen SUBQ SCH ×4 (06:19→21:40)
[2016-10-13 06:56] LABS: ANION GAP 10 (5-15); CALCIUM 8.6 mg/dL (8.6-10.2); CARBON DIOXIDE 33 mEQ/L (20-30); CHLORIDE 103 mEQ/L (98-107); CREATININE 0.6 mg/dL (0.5-0.9); GLOMERULAR FILTRATION RATE > 60 mL/min (>60); HEMOLYSIS 4; POTASSIUM 3.6 mEQ/L (3.4-4.9); SODIUM 146 mEQ/L (135-145)
[2016-10-13 08:07] VITALS: BP 153/94
[2016-10-13] MEDS: Docusate 100mg cap ORAL SCH (08:32)
[2016-10-13] MEDS: Oxymetazoline 0.05% Na Spray 30ml NASAL SCH ×3 (08:32→17:57)
[2016-10-13] MEDS: Metoprolol 50mg tab ORAL SCH ×2 (08:32→17:04)
--- NOTE | 2016-10-13 08:34 | General Progress Note ---
Assessment/Plan Status: stable Assessment/Plan 1- C-diff colitis 2. HCA-UTI 3. Troponin leakage 4- Gross Hematuria 3- Psych d/o 4- Multiple joint OA 5. Abnormal Imaging finding in chest CT 6. Hyper Natremia 5- GI/DVT prophylaxia Plan: DC lovenox Stop transfer for cardiac cath for now consult pulmonary regarding incidental finding in CXR Urology note reviewed IV fluid D5 initiated will monitor serum sodium in light of persistent hematuria , I will DC ASA for now Ok to Discharge pending ID clearance Subjective ROS Limited/Unobtainable: No Constitutional: Reports: no symptoms HEENT: Reports: no symptoms Cardiovascular: Reports: no symptoms Allergies: Coded Allergies: PENICILLINS (Verified Allergy, Unknown, 10/07/16) Objective Last 24 Hour Vital Signs Date Time Temp Pulse Resp B/P Pulse Ox O2 Delivery O2 Flow Rate FiO2 10/13/16 08:07 98.1 85 18 153/94 98 Nasal Cannula 2.0 10/13/16 04:00 80 10/13/16 04:00 97.2 80 20 152/73 Nasal Cannula 2.0 100 10/13/16 00:00 81 10/13/16 00:00 98.4 74 18 145/82 Nasal Cannula 2.0 97 10/12/16 20:00 97.3 75 18 156/90 Nasal Cannula 2.0 98 10/12/16 20:00 87 10/12/16 17:42 79 142/75 10/12/16 16:00 79 10/12/16 16:00 96.8 79 18 142/75 Nasal Cannula 2.0 97 10/12/16 12:00 96.9 86 17 117/86 97 Nasal Cannula 2.0 10/12/16 12:00 83 10/12/16 09:18 87 135/89 Intake and Output 10/12/16 10/13/16 19:00 07:00 Intake Total 1215 ml Output Total 2 ml Balance 1215 ml -2 ml Intake Oral 680 ml IV Total 535 ml Output Urine Total 2 ml # Voids 3 1 # Bowel Movements 1 Laboratory Tests 10/13/16 04:05: White Blood Count 5.6, Red Blood Count 3.85L, Hemoglobin 11.0L, Hematocrit 33.7L , Mean Corpuscular Volume 87, Mean Corpuscular Hemoglobin 28.6, Mean Corpuscular Hemoglobin Concent 32.7, Red Cell Distribution Width 12.4, Platelet Count 182, Mean Platelet Volume 6.9, Neutrophils (%) (Auto) 41.2L, Lymphocytes ( %) (Auto) 38.2, Monocytes (%) (Auto) 15.1H, Eosinophils (%) (Auto) 5.0H, Basophils (%) (Auto) 0.5, Sodium Level 146H, Potassium Level 3.6, Chloride Level 103, Carbon Dioxide Level 33H, Anion Gap 10, Blood Urea Nitrogen 9, Creatinine 0.6, Estimat Glomerular Filtration Rate > 60, Glucose Level 101, Calcium Level 8.6 Height (Feet): 5 Height (Inches): 5.00 Weight (Pounds): 220 General Appearance: WD/WN EENT: PERRL/EOMI Neck: supple Cardiovascular: normal rate Respiratory/Chest: lungs clear Abdomen: soft Extremities: non-tender 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
--- NOTE | 2016-10-13 09:09 | Urology Progress Note ---
Assessment/Plan Assessment/Plan 1. Gross hematuria, which is clearing. 2. Urinary retention hx. 3. Neurogenic bladder. 4. Proteinuria. 5. UTI. tidwell out, monitor for voiding reinsert tidwell PRN abx (Rocephin) monitor h/h asa held Subjective Allergies: Coded Allergies: PENICILLINS (Verified Allergy, Unknown, 10/07/16) Subjective all noted Objective Last 24 Hour Vital Signs Date Time Temp Pulse Resp B/P Pulse Ox O2 Delivery O2 Flow Rate FiO2 10/13/16 08:32 85 153/94 10/13/16 08:07 98.1 85 18 153/94 98 Nasal Cannula 2.0 10/13/16 04:00 80 10/13/16 04:00 97.2 80 20 152/73 Nasal Cannula 2.0 100 10/13/16 00:00 81 10/13/16 00:00 98.4 74 18 145/82 Nasal Cannula 2.0 97 10/12/16 20:00 97.3 75 18 156/90 Nasal Cannula 2.0 98 10/12/16 20:00 87 10/12/16 17:42 79 142/75 10/12/16 16:00 79 10/12/16 16:00 96.8 79 18 142/75 Nasal Cannula 2.0 97 10/12/16 12:00 96.9 86 17 117/86 97 Nasal Cannula 2.0 10/12/16 12:00 83 10/12/16 09:18 87 135/89 Intake and Output 10/12/16 10/13/16 19:00 07:00 Intake Total 1215 ml Output Total 2 ml Balance 1215 ml -2 ml Intake Oral 680 ml IV Total 535 ml Output Urine Total 2 ml # Voids 3 1 # Bowel Movements 1 Microbiology Date/Time Source Procedure Growth Status 10/10/16 19:18 Sputum Gram Stain - Final Complete 10/10/16 19:18 Sputum Sputum Culture - Final NORMAL UPPER RESPIRATORY CARLITO PRESENT Complete 10/08/16 14:50 Stool Clostridium difficile Toxin Assay - Final Complete 10/08/16 13:00 Indwelling Cath Urine Culture - Final Escherichia Coli Complete 10/07/16 21:00 Rectum VRE Culture - Final NO VANCOMYCIN RESISTANT ENTEROCOCCUS ... Complete Current Medications Medications (Trade) Dose Ordered Sig/Domingo Route PRN Reason Start Time Stop Time Status Last Admin Dose Admin Acetaminophen 500 mg 500 mg Q4H PRN ORAL Mild Pain/Temp > 100.5 10/10/16 22:45 11/09/16 22:44 10/10/16 22:58 Albuterol/ Ipratropium (DuoNeb 0.5-3(2.5)mg/3ml) 3 ml Q4H PRN HHN Shortness of Breath 10/12/16 11:30 10/17/16 11:29 Atorvastatin Calcium 40 mg 40 mg BEDTIME ORAL 10/09/16 21:00 11/08/16 20:59 10/12/16 22:04 Ceftriaxone Sodium/Dextrose (Rocephin/D5W) 55 ml @ 110 mls/hr Q24H IVPB 10/10/16 14:00 10/17/16 13:59 10/12/16 13:16 Dextrose (D5W 1000ml) 1,000 ml @ 50 mls/hr Q20H IV 10/11/16 08:00 11/10/16 07:59 10/12/16 04:37 Dextrose (Dextrose 50%) STAT PRN IV Hypoglycemia 10/07/16 21:00 11/06/16 20:59 Divalproex Sodium (Depakote) 250 mg EVERY 12 HOURS ORAL 10/07/16 22:30 11/06/16 22:29 10/13/16 08:32 Docusate Sodium (Colace) 100 mg DAILY ORAL 10/08/16 09:00 11/07/16 08:59 10/12/16 09:18 Insulin Aspart (NovoLOG) BEFORE MEALS AND HS SUBQ 10/07/16 22:30 11/06/16 22:29 10/12/16 11:38 Levothyroxine Sodium (Synthroid) 75 mcg DAILY@0630 ORAL 10/08/16 06:30 11/07/16 06:29 10/13/16 06:11 Loperamide HCl (Imodium) 2 mg Q4H PRN ORAL Diarrhea 10/08/16 21:45 11/07/16 21:44 10/08/16 21:43 Metoprolol Tartrate (Lopressor) 50 mg BID ORAL 10/09/16 09:00 11/08/16 08:59 10/13/16 08:32 Metronidazole (Flagyl) 100 ml @ 100 mls/hr Q8HR IVPB 10/09/16 20:00 10/19/16 23:59 10/13/16 06:11 Nitroglycerin (Ntg) 0.4 mg [id number] X 3 DOSES PRN SL Prn Chest Pain 10/07/16 20:30 11/06/16 20:29 Oxymetazoline HCl (Afrin Nasal [place]) 1 spray TID NASAL 10/12/16 13:00 10/14/16 09:01 10/13/16 08:32 Pantoprazole (Protonix) 40 mg DAILY ORAL 10/08/16 09:00 11/07/16 08:59 10/13/16 08:32 Promethazine HCl/ Codeine (Phenergan with Codeine) 5 ml Q4H PRN ORAL For Cough 10/10/16 16:30 11/09/16 16:29 10/10/16 19:48 Quetiapine Fumarate 50 mg 50 mg BEDTIME ORAL 10/09/16 21:00 11/08/16 20:59 10/12/16 22:04 Laboratory Tests 10/13/16 04:05: White Blood Count 5.6, Red Blood Count 3.85L, Hemoglobin 11.0L, Hematocrit 33.7L , Mean Corpuscular Volume 87, Mean Corpuscular Hemoglobin 28.6, Mean Corpuscular Hemoglobin Concent 32.7, Red Cell Distribution Width 12.4, Platelet Count 182, Mean Platelet Volume 6.9, Neutrophils (%) (Auto) 41.2L, Lymphocytes ( %) (Auto) 38.2, Monocytes (%) (Auto) 15.1H, Eosinophils (%) (Auto) 5.0H, Basophils (%) (Auto) 0.5, Sodium Level 146H, Potassium Level 3.6, Chloride Level 103, Carbon Dioxide Level 33H, Anion Gap 10, Blood Urea Nitrogen 9, Creatinine 0.6, Estimat Glomerular Filtration Rate > 60, Glucose Level 101, Calcium Level 8.6 Height (Feet): 5 Height (Inches): 5.00 Weight (Pounds): 220 Objective exam urine is elenita renal u/s noted DUNCAN EDEN Oct 13, 2016 09:09
--- NOTE | 2016-10-13 10:51 | Diagnostic Imaging Report ---
Indication: DYSPNEA Technique: One view of the chest Comparison: 10/07/2016 Findings: There is mild bilateral perihilar interstitial prominence. No focal airspace consolidation. No effusions. Normal heart size Impression: Equivocal mild interstitial congestive changes. No focal airspace consolidation. No significant change since 10/07/2016
[2016-10-13 11:19] VITALS: BP 138/57
[2016-10-13] MEDS: Acetaminophen 500mg (ES) tab ORAL PRN ×2 (12:00→17:03)
--- NOTE | 2016-10-13 12:05 | Diagnostic Imaging Report ---
Indication: Dyspnea Comparison: 10/11/16 A single view chest radiograph was obtained. Findings: Heart is normal in size. Aorta is ectatic. Lungs are clear. Bones are osteopenic. Impression: No acute disease
--- NOTE | 2016-10-13 12:40 | Infectious Diseases Prog Note ---
Assessment/Plan Assessment/Plan ASSESSMENT: 70 y/o female with: // C.difficile diarrhea - improved on immodium // Possible complicated E.coli UTI with gross hematuria - UA benign - US: tidwell, no stones or hydronephrosis - h/o urinary retention, neurogenic bladder // Periodontal disease // Leukopenia, afebrile // NSTEMI / elevated troponin - cardiology following - TTE: EF 60-65%, grade I diastolic dysfunction, mod TR // Masslike opacity inferomedial right hemithorax, probably just a prominent unopacified suprahepatic inferior vena cava // 19 mm arterial phase enhancing lesion in the dome of the right lobe of the liver. // Thrombocytopenia // Psych disorder // [facility] resident // Negative MRSA, VRE screens // PCN allergy - unable to qualify. Tolerating rocephin // Full Code PLAN: - ok to DC on PO flagyl d# 5 / 14 + PO macrobid x3 days - Rx on chart. Will continue rocephin d# 4 / 7 UTI Rx while still inpt - f/u final cultures - monitor CBC, temperatures - monitor BMP Subjective Allergies: Coded Allergies: PENICILLINS (Verified Allergy, Unknown, 10/07/16) Subjective remains afebrile. comfortable Objective Vital Signs Last 24 Hour Vital Signs Date Time Temp Pulse Resp B/P Pulse Ox O2 Delivery O2 Flow Rate FiO2 10/13/16 11:19 97.9 64 18 138/57 97 Nasal Cannula 2.0 10/13/16 08:32 85 153/94 10/13/16 08:07 98.1 85 18 153/94 98 Nasal Cannula 2.0 10/13/16 08:00 96 10/13/16 04:00 80 10/13/16 04:00 97.2 80 20 152/73 Nasal Cannula 2.0 100 10/13/16 00:00 81 10/13/16 00:00 98.4 74 18 145/82 Nasal Cannula 2.0 97 10/12/16 20:00 97.3 75 18 156/90 Nasal Cannula 2.0 98 10/12/16 20:00 87 10/12/16 17:42 79 142/75 10/12/16 16:00 79 10/12/16 16:00 96.8 79 18 142/75 Nasal Cannula 2.0 97 Height (Feet): 5 Height (Inches): 5.00 Weight (Pounds): 220 General Appearance: no acute distress Respiratory/Chest: no respiratory distress Cardiovascular: normal rate, regular rhythm Abdomen: normal bowel sounds, soft, non tender, non distended Microbiology Date/Time Source Procedure Growth Status 10/10/16 19:18 Sputum Gram Stain - Final Complete 10/10/16 19:18 Sputum Sputum Culture - Final NORMAL UPPER RESPIRATORY CARLITO PRESENT Complete Laboratory Tests Test 10/13/16 04:05 White Blood Count 5.6 K/UL (4.8-10.8) Red Blood Count 3.85 M/UL (4.20-5.40) L Hemoglobin 11.0 G/DL (12.0-16.0) L Hematocrit 33.7 % (37.0-47.0) L Mean Corpuscular Volume 87 FL (80-99) Mean Corpuscular Hemoglobin 28.6 PG (27.0-31.0) Mean Corpuscular Hemoglobin Concent 32.7 G/DL (32.0-36.0) Red Cell Distribution Width 12.4 % (11.6-14.8) Platelet Count 182 K/UL (150-450) Mean Platelet Volume 6.9 FL (6.5-10.1) Neutrophils (%) (Auto) 41.2 % (45.0-75.0) L Lymphocytes (%) (Auto) 38.2 % (20.0-45.0) Monocytes (%) (Auto) 15.1 % (1.0-10.0) H Eosinophils (%) (Auto) 5.0 % (0.0-3.0) H Basophils (%) (Auto) 0.5 % (0.0-2.0) Sodium Level 146 mEQ/L (135-145) H Potassium Level 3.6 mEQ/L (3.4-4.9) Chloride Level 103 mEQ/L (98-107) Carbon Dioxide Level 33 mEQ/L (20-30) H Anion Gap 10 (5-15) Blood Urea Nitrogen 9 mg/dL (7-23) Creatinine 0.6 mg/dL (0.5-0.9) Estimat Glomerular Filtration Rate > 60 mL/min (>60) Glucose Level 101 mg/dL (74-106) Calcium Level 8.6 mg/dL (8.6-10.2) Current Medications Medications (Trade) Dose Ordered Sig/Domingo Route PRN Reason Start Time Stop Time Status Last Admin Dose Admin Acetaminophen 500 mg 500 mg Q4H PRN ORAL Mild Pain/Temp > 100.5 10/10/16 22:45 11/09/16 22:44 10/13/16 12:00 Albuterol/ Ipratropium (DuoNeb 0.5-3(2.5)mg/3ml) 3 ml Q4H PRN HHN Shortness of Breath 10/12/16 11:30 10/17/16 11:29 Atorvastatin Calcium 40 mg 40 mg BEDTIME ORAL 10/09/16 21:00 11/08/16 20:59 10/12/16 22:04 Ceftriaxone Sodium/Dextrose (Rocephin/D5W) 55 ml @ 110 mls/hr Q24H IVPB 10/10/16 14:00 10/17/16 13:59 10/12/16 13:16 Dextrose (D5W 1000ml) 1,000 ml @ 50 mls/hr Q20H IV 10/11/16 08:00 11/10/16 07:59 10/12/16 04:37 Dextrose (Dextrose 50%) STAT PRN IV Hypoglycemia 10/07/16 21:00 11/06/16 20:59 Divalproex Sodium (Depakote) 250 mg EVERY 12 HOURS ORAL 10/07/16 22:30 11/06/16 22:29 10/13/16 08:32 Docusate Sodium (Colace) 100 mg DAILY ORAL 10/08/16 09:00 11/07/16 08:59 10/12/16 09:18 Insulin Aspart (NovoLOG) BEFORE MEALS AND HS SUBQ 10/07/16 22:30 11/06/16 22:29 10/13/16 11:49 Levothyroxine Sodium (Synthroid) 75 mcg DAILY@0630 ORAL 10/08/16 06:30 11/07/16 06:29 10/13/16 06:11 Loperamide HCl (Imodium) 2 mg Q4H PRN ORAL Diarrhea 10/08/16 21:45 11/07/16 21:44 10/08/16 21:43 Metoprolol Tartrate (Lopressor) 50 mg BID ORAL 10/09/16 09:00 11/08/16 08:59 10/13/16 08:32 Metronidazole (Flagyl) 100 ml @ 100 mls/hr Q8HR IVPB 10/09/16 20:00 10/19/16 23:59 10/13/16 06:11 Nitroglycerin (Ntg) 0.4 mg [id number] X 3 DOSES PRN SL Prn Chest Pain 10/07/16 20:30 11/06/16 20:29 Oxymetazoline HCl (Afrin Nasal [place]) 1 spray TID NASAL 10/12/16 13:00 10/14/16 09:01 10/13/16 12:00 Pantoprazole (Protonix) 40 mg DAILY ORAL 10/08/16 09:00 11/07/16 08:59 10/13/16 08:32 Promethazine HCl/ Codeine (Phenergan with Codeine) 5 ml Q4H PRN ORAL For Cough 10/10/16 16:30 11/09/16 16:29 10/10/16 19:48 Quetiapine Fumarate 50 mg 50 mg BEDTIME ORAL 10/09/16 21:00 11/08/16 20:59 10/12/16 22:04 KOTA HERZOG Oct 13, 2016 12:40
[2016-10-13] MEDS: cefTRIAXone 1 GM in D5W 55 ML IVPB SCH (13:17)
[2016-10-13 16:00] VITALS: BP 145/70
[2016-10-13 20:00] VITALS: BP 158/98
--- NOTE | 2016-10-13 22:36 | Pulmonology Progress Note ---
Assessment/Plan Problems: (1) Bronchitis (2) Pulmonary nodule (3) Persistent cough (4) Diabetes mellitus (5) Schizoaffective disorder Assessment/Plan Plan Breathing Tx as needed for SOB Aspiration precautions Anti-tussive as needed CXR examined Subjective Allergies: Coded Allergies: PENICILLINS (Verified Allergy, Unknown, 10/07/16) Objective Last 24 Hour Vital Signs Date Time Temp Pulse Resp B/P Pulse Ox O2 Delivery O2 Flow Rate FiO2 10/13/16 20:00 97.9 77 19 158/98 97 Nasal Cannula 3.0 10/13/16 17:04 88 145/70 10/13/16 16:00 98.0 88 21 145/70 97 Nasal Cannula 3.0 10/13/16 16:00 84 10/13/16 12:00 71 10/13/16 11:19 97.9 64 18 138/57 97 Nasal Cannula 2.0 10/13/16 08:32 85 153/94 10/13/16 08:07 98.1 85 18 153/94 98 Nasal Cannula 2.0 10/13/16 08:00 96 10/13/16 04:00 80 10/13/16 04:00 97.2 80 20 152/73 Nasal Cannula 2.0 100 10/13/16 00:00 81 10/13/16 00:00 98.4 74 18 145/82 Nasal Cannula 2.0 97 Intake and Output 10/12/16 10/13/16 19:00 07:00 Intake Total 1215 ml Output Total 2 ml Balance 1215 ml -2 ml Intake Oral 680 ml IV Total 535 ml Output Urine Total 2 ml # Voids 3 1 # Bowel Movements 1 General Appearance: no acute distress HEENT: normocephalic, atraumatic, PERRL Respiratory/Chest: chest wall non-tender, decreased breath sounds, accessory muscle use, rhonchi Breasts: no masses Cardiovascular: normal peripheral pulses, normal rate, regular rhythm, no JVD Abdomen: normal bowel sounds, soft, non tender, no organomegaly Genitourinary: normal external genitalia Extremities: no cyanosis Skin: no rash, no lesions 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, no motor/sensory deficits Laboratory Tests 10/13/16 04:05: White Blood Count 5.6, Red Blood Count 3.85L, Hemoglobin 11.0L, Hematocrit 33.7L , Mean Corpuscular Volume 87, Mean Corpuscular Hemoglobin 28.6, Mean Corpuscular Hemoglobin Concent 32.7, Red Cell Distribution Width 12.4, Platelet Count 182, Mean Platelet Volume 6.9, Neutrophils (%) (Auto) 41.2L, Lymphocytes ( %) (Auto) 38.2, Monocytes (%) (Auto) 15.1H, Eosinophils (%) (Auto) 5.0H, Basophils (%) (Auto) 0.5, Sodium Level 146H, Potassium Level 3.6, Chloride Level 103, Carbon Dioxide Level 33H, Anion Gap 10, Blood Urea Nitrogen 9, Creatinine 0.6, Estimat Glomerular Filtration Rate > 60, Glucose Level 101, Calcium Level 8.6 Current Medications Medications (Trade) Dose Ordered Sig/Domingo Route PRN Reason Start Time Stop Time Status Last Admin Dose Admin Acetaminophen 500 mg 500 mg Q4H PRN ORAL Mild Pain/Temp > 100.5 10/10/16 22:45 11/09/16 22:44 10/13/16 17:03 Albuterol/ Ipratropium (DuoNeb 0.5-3(2.5)mg/3ml) 3 ml Q4H PRN HHN Shortness of Breath 10/12/16 11:30 10/17/16 11:29 Atorvastatin Calcium 40 mg 40 mg BEDTIME ORAL 10/09/16 21:00 11/08/16 20:59 10/13/16 21:35 Ceftriaxone Sodium/Dextrose (Rocephin/D5W) 55 ml @ 110 mls/hr Q24H IVPB 10/10/16 14:00 10/17/16 13:59 10/13/16 13:17 Dextrose (D5W 1000ml) 1,000 ml @ 50 mls/hr Q20H IV 10/11/16 08:00 11/10/16 07:59 10/13/16 19:24 Dextrose (Dextrose 50%) STAT PRN IV Hypoglycemia 10/07/16 21:00 11/06/16 20:59 Divalproex Sodium (Depakote) 250 mg EVERY 12 HOURS ORAL 10/07/16 22:30 11/06/16 22:29 10/13/16 21:38 Docusate Sodium (Colace) 100 mg DAILY ORAL 10/08/16 09:00 11/07/16 08:59 10/12/16 09:18 Insulin Aspart (NovoLOG) BEFORE MEALS AND HS SUBQ 10/07/16 22:30 11/06/16 22:29 10/13/16 21:40 Levothyroxine Sodium (Synthroid) 75 mcg DAILY@0630 ORAL 10/08/16 06:30 11/07/16 06:29 10/13/16 06:11 Loperamide HCl (Imodium) 2 mg Q4H PRN ORAL Diarrhea 10/08/16 21:45 11/07/16 21:44 10/08/16 21:43 Metoprolol Tartrate (Lopressor) 50 mg BID ORAL 10/09/16 09:00 11/08/16 08:59 10/13/16 17:04 Metronidazole (Flagyl) 100 ml @ 100 mls/hr Q8HR IVPB 10/09/16 20:00 10/19/16 23:59 10/13/16 21:34 Nitroglycerin (Ntg) 0.4 mg [id number] X 3 DOSES PRN SL Prn Chest Pain 10/07/16 20:30 11/06/16 20:29 Oxymetazoline HCl (Afrin Nasal [place]) 1 spray TID NASAL 10/12/16 13:00 10/14/16 09:01 10/13/16 17:57 Pantoprazole (Protonix) 40 mg DAILY ORAL 10/08/16 09:00 11/07/16 08:59 10/13/16 08:32 Promethazine HCl/ Codeine (Phenergan with Codeine) 5 ml Q4H PRN ORAL For Cough 10/10/16 16:30 11/09/16 16:29 10/10/16 19:48 Quetiapine Fumarate 50 mg 50 mg BEDTIME ORAL 10/09/16 21:00 11/08/16 20:59 10/13/16 21:35 GLADYS JAIN Oct 13, 2016 22:36
--- NOTE | 2016-10-13 23:44 | Cardiology Progress Note ---
Assessment/Plan Status Narrative Cardiology consultation was made at the request of Dr. Hamlin on Oct 07, 2016. 1. NSTEMI, although CKMB are negative, awaiting the second trop levels, ASA 81, Lovenox 1mg/kg bid, atorvastatin 20 and metoprolol 2. Dyspnea with decrease O2, CXR and CT scan of chest were both negative, 12 lead ECG in am. Thi Jarquin M.D. Assessment/Plan 1. Elevated trop, chest pain free, no ischemic changes on the ECG, medical therapy with ASA, statins and B-blockers. 2. DM, continue ASA and atorvastatin. 3. HTN, stage I, will increase metoprolol if HTN persists. 4. Dyslipidemia 5. Echo reveals normal wall motion (LVEF ~65%) Subjective Subjective Sinus rhythm at 77. Objective Last 24 Hour Vital Signs Date Time Temp Pulse Resp B/P Pulse Ox O2 Delivery O2 Flow Rate FiO2 10/13/16 20:00 97.9 77 19 158/98 97 Nasal Cannula 3.0 10/13/16 17:04 88 145/70 10/13/16 16:00 98.0 88 21 145/70 97 Nasal Cannula 3.0 10/13/16 16:00 84 10/13/16 12:00 71 10/13/16 11:19 97.9 64 18 138/57 97 Nasal Cannula 2.0 10/13/16 08:32 85 153/94 10/13/16 08:07 98.1 85 18 153/94 98 Nasal Cannula 2.0 10/13/16 08:00 96 10/13/16 04:00 80 10/13/16 04:00 97.2 80 20 152/73 Nasal Cannula 2.0 100 10/13/16 00:00 81 10/13/16 00:00 98.4 74 18 145/82 Nasal Cannula 2.0 97 Intake and Output 10/12/16 10/13/16 19:00 07:00 Intake Total 1215 ml Output Total 2 ml Balance 1215 ml -2 ml Intake Oral 680 ml IV Total 535 ml Output Urine Total 2 ml # Voids 3 1 # Bowel Movements 1 2D Echo: LVEF 65%, Bi-atrial enlargement, LVH, RVSP 27 mmHg, Grade I LVDD Laboratory Tests Test 10/13/16 04:05 White Blood Count 5.6 K/UL (4.8-10.8) Red Blood Count 3.85 M/UL (4.20-5.40) L Hemoglobin 11.0 G/DL (12.0-16.0) L Hematocrit 33.7 % (37.0-47.0) L Mean Corpuscular Volume 87 FL (80-99) Mean Corpuscular Hemoglobin 28.6 PG (27.0-31.0) Mean Corpuscular Hemoglobin Concent 32.7 G/DL (32.0-36.0) Red Cell Distribution Width 12.4 % (11.6-14.8) Platelet Count 182 K/UL (150-450) Mean Platelet Volume 6.9 FL (6.5-10.1) Neutrophils (%) (Auto) 41.2 % (45.0-75.0) L Lymphocytes (%) (Auto) 38.2 % (20.0-45.0) Monocytes (%) (Auto) 15.1 % (1.0-10.0) H Eosinophils (%) (Auto) 5.0 % (0.0-3.0) H Basophils (%) (Auto) 0.5 % (0.0-2.0) Sodium Level 146 mEQ/L (135-145) H Potassium Level 3.6 mEQ/L (3.4-4.9) Chloride Level 103 mEQ/L (98-107) Carbon Dioxide Level 33 mEQ/L (20-30) H Anion Gap 10 (5-15) Blood Urea Nitrogen 9 mg/dL (7-23) Creatinine 0.6 mg/dL (0.5-0.9) Estimat Glomerular Filtration Rate > 60 mL/min (>60) Glucose Level 101 mg/dL (74-106) Calcium Level 8.6 mg/dL (8.6-10.2) Objective HEENT: Atraumatic and normocephalic, PERRLA, EOMI NECK: Negative JVD, no carotid bruit HEART: S1 and S2. Regular rate and rhythm, tachycardia CHEST: Clear ABDOMEN: Soft. non-tender, nondistended No organomegaly. MUSCULOSKELETAL: No edema, clubbing or cyanosis NEUROLOGIC: No focal signs, + dementia. THI JARQUIN Oct 13, 2016 23:44
[2016-10-14] VITALS: BP 166/80
[2016-10-14 04:00] VITALS: BP 157/89
[2016-10-14] MEDS: metroNIDAZOLE 500mg 100 ML IVPB SCH (05:49)
[2016-10-14] MEDS: NovoLOG Insulin Flexpen SUBQ SCH ×2 (06:30→11:43)
[2016-10-14 07:41] VITALS: BP 136/89
[2016-10-14] MEDS: Acetaminophen 500mg (ES) tab ORAL PRN ×2 (07:44→12:33)
[2016-10-14] MEDS: Docusate 100mg cap ORAL SCH (08:45)
[2016-10-14] MEDS: Metoprolol 50mg tab ORAL SCH (08:45)
[2016-10-14] MEDS: Oxymetazoline 0.05% Na Spray 30ml NASAL SCH (08:45)
[2016-10-14] MEDS ORDERED: METRONIDAZOLE500 MG ORAL (10:59)
[2016-10-14] MEDS ORDERED: NITROFURANTOIN100 M2 ORAL (10:59)
[2016-10-14 11:21] VITALS: BP 154/84
[2016-10-14 12:12] LABS: CA 125 7.7 U/mL (0.0-38.1); CA15-3 12.4 U/mL (0.0-25.0)
--- NOTE | 2016-10-14 13:56 | General Progress Note ---
Assessment/Plan Status: stable Assessment/Plan 1- C-diff colitis 2. HCA-UTI 3. Troponin leakage 4- Gross Hematuria 3- Psych d/o 4- Multiple joint OA 5. Abnormal Imaging finding in chest CT 6. Hyper Natremia 5- GI/DVT prophylaxia Plan: DC lovenox Stop transfer for cardiac cath for now consult pulmonary regarding incidental finding in CXR Urology note reviewed IV fluid D5 initiated will monitor serum sodium in light of persistent hematuria , I will DC ASA for now Ok to Discharge pending ID clearance Subjective ROS Limited/Unobtainable: No Constitutional: Reports: no symptoms HEENT: Reports: no symptoms Cardiovascular: Reports: no symptoms Allergies: Coded Allergies: PENICILLINS (Verified Allergy, Unknown, 10/07/16) Objective Last 24 Hour Vital Signs Date Time Temp Pulse Resp B/P Pulse Ox O2 Delivery O2 Flow Rate FiO2 10/14/16 11:21 97.3 93 18 154/84 98 Nasal Cannula 2.0 10/14/16 08:45 80 136/89 10/14/16 08:00 102 10/14/16 07:41 96.3 80 18 136/89 99 Nasal Cannula 2.0 10/14/16 04:00 97.0 94 20 157/89 93 Nasal Cannula 2.0 10/14/16 04:00 66 10/14/16 00:00 98.0 75 20 166/80 94 Nasal Cannula 2.0 10/14/16 00:00 66 10/13/16 20:00 78 10/13/16 20:00 97.9 77 19 158/98 97 Nasal Cannula 3.0 10/13/16 17:04 88 145/70 10/13/16 16:00 98.0 88 21 145/70 97 Nasal Cannula 3.0 10/13/16 16:00 84 Intake and Output 10/13/16 10/14/16 19:00 07:00 Intake Total 1350 ml 930 ml Balance 1350 ml 930 ml Intake Oral 490 ml 200 ml IV Total 860 ml 730 ml # Voids 3 3 # Bowel Movements 6 Height (Feet): 5 Height (Inches): 5.00 Weight (Pounds): 220 General Appearance: no apparent distress EENT: PERRL/EOMI Neck: supple Cardiovascular: normal rate Respiratory/Chest: lungs clear Abdomen: soft Extremities: non-tender 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
--- NOTE | 2016-10-14 14:08 | Diagnostic Imaging Report ---
Indication: Dyspnea Comparison: 10/10/16 A single view chest radiograph was obtained. Findings: No definite infiltrate or pulmonary vascular congestion identified. The heart is normal in size. The aorta is mildly enlarged consistent with atherosclerotic vascular disease. The bones are osteopenic. Impression: No acute disease
--- NOTE | 2016-10-14 15:26 | Urology Progress Note ---
Assessment/Plan Assessment/Plan 1. Gross hematuria, which is clearing. 2. Urinary retention hx. 3. Neurogenic bladder. 4. Proteinuria. 5. UTI. tidwlel out, monitor for voiding reinsert tidwell PRN s/p abx (Rocephin) monitor h/h asa held outpt f/u for cysto recheck UA, urine C+S as oupt Subjective Allergies: Coded Allergies: PENICILLINS (Verified Allergy, Unknown, 10/07/16) Subjective all noted, pt seen earlier this morning, plan is for dc today, voiding and urine reported clear Objective Last 24 Hour Vital Signs Date Time Temp Pulse Resp B/P Pulse Ox O2 Delivery O2 Flow Rate FiO2 10/14/16 11:21 97.3 93 18 154/84 98 Nasal Cannula 2.0 10/14/16 08:45 80 136/89 10/14/16 08:00 102 10/14/16 07:41 96.3 80 18 136/89 99 Nasal Cannula 2.0 10/14/16 04:00 97.0 94 20 157/89 93 Nasal Cannula 2.0 10/14/16 04:00 66 10/14/16 00:00 98.0 75 20 166/80 94 Nasal Cannula 2.0 10/14/16 00:00 66 10/13/16 20:00 78 10/13/16 20:00 97.9 77 19 158/98 97 Nasal Cannula 3.0 10/13/16 17:04 88 145/70 10/13/16 16:00 98.0 88 21 145/70 97 Nasal Cannula 3.0 10/13/16 16:00 84 Intake and Output 10/13/16 10/14/16 19:00 07:00 Intake Total 1350 ml 930 ml Balance 1350 ml 930 ml Intake Oral 490 ml 200 ml IV Total 860 ml 730 ml # Voids 3 3 # Bowel Movements 6 Microbiology Date/Time Source Procedure Growth Status 10/10/16 19:18 Sputum Gram Stain - Final Complete 10/10/16 19:18 Sputum Sputum Culture - Final NORMAL UPPER RESPIRATORY CARLITO PRESENT Complete 10/08/16 14:50 Stool Clostridium difficile Toxin Assay - Final Complete 10/08/16 13:00 Indwelling Cath Urine Culture - Final Escherichia Coli Complete 10/07/16 21:00 Rectum VRE Culture - Final NO VANCOMYCIN RESISTANT ENTEROCOCCUS ... Complete Height (Feet): 5 Height (Inches): 5.00 Weight (Pounds): 220 Objective exam urine is elenita renal u/s noted Med list noted DUNCAN EDEN Oct 14, 2016 15:26
--- NOTE | 2016-10-16 14:17 | Discharge Summary ---
Discharge Summary Hospital Course Date of Admission Oct 07, 2016 at 17:23 Date of Discharge Oct 14, 2016 at 13:00 Admitting Diagnosis elevated troponin HPI Jayne Razo is a 70 year old female who was admitted on Oct 07, 2016 at 17:23 for Elevated Troponin Hospital Course [id number] Discharge Discharge Disposition Patient was discharged to SNF/Subacute Facility(03) Discharge Diagnoses: Yolette Slater NP Oct 16, 2016 14:17
--- NOTE | 2016-10-17 02:18 | Discharge Summary 2 SIG ---
DATE OF ADMISSION: 10/07/2016 DATE OF DISCHARGE: 10/14/2016 CONSULTANTS: 1. hCao Hill M.D. 2. Ted Jarquin M.D. 3. Jigna Sun M.D. 4. Jarvis Luciano M.D. 5. Srikanth Oneill M.D. BRIEF HOSPITAL COURSE: The patient is a 70-year-old female with history of hypothyroidism, hypertension, and diabetes, who presented with increased shortness of breath. CT was negative for acute pulmonary process. Troponin was elevated. Cardiac enzymes were monitored. The patient was given aspirin, Lovenox 1 mg/kg b.i.d., atorvastatin, and metoprolol and also had gross hematuria with no evidence of active bleeding. Hematuria improved with Shukla irrigation. Urine was sent for culture and showed growth of E. coli. Hospital course has been complicated by C. difficile diarrhea and was given Flagyl. Due to persistent hematuria, aspirin was discontinued together with Lovenox. CT chest showed pulmonary nodule. Cardiac troponin now normalized. Plans for cardiac catheterization was deferred and the patient was eventually discharged back to care home on p.o. antibiotics. FINAL DIAGNOSES: 1. Clostridium difficile colitis. 2. Healthcare-associated urinary tract infection. 3. Troponin leak. 4. Gross hematuria. 5. Hypernatremia. 6. Multiple joint osteoarthritis. 7. Bipolar disorder. 8. Complicated Escherichia coli urinary tract infection with gross hematuria. 9. Abnormal incidental finding on CT of the chest. 10. Thrombocytopenia. Daniel Hamlin M.D. I have been assigned to dictate discharge summary on this account and I was not involved in the patient's management. Yolette Slater N.P. DR: EYAD JOB#: [id number] CC:
--- NOTE | 2016-10-29 09:43 | Diagnostic Imaging Report ---
APPROVED REPORT CPT Code: 08509 Present Symptoms Lower Extremity Pain: Bilateral BILATERAL: Imaging reveals a patent deep venous system bilaterally. There is no evidence of thrombus within the femoral, popliteal or tibial segments. The greater saphenous veins are also within normal limits. Doppler indicates normal spontaneous flow within these segments.
== END 2016-10-14 13:00 | DRG 372 ==
LOC: EDBD 15:41 → EMR 16:00 → 2E 17:23 → EDBEDREQ 18:06
DX: A04.7 Enterocolitis due to Clostridium difficile (principal); E87.0 Hyperosmolality and hypernatremia; N39.0 Urinary tract infection, site not specified; D69.6 Thrombocytopenia, unspecified; J44.9 Chronic obstructive pulmonary disease, unspecified; I07.1 Rheumatic tricuspid insufficiency; R31.0 Gross hematuria; N31.9 Neuromuscular dysfunction of bladder, unspecified; B96.20 Unspecified Escherichia coli [E. coli] as the cause of diseases classified elsewhere; J40 Bronchitis, not specified as acute or chronic; R91.1 Solitary pulmonary nodule; R33.9 Retention of urine, unspecified; Z88.0 Allergy status to penicillin; M15.9 Polyosteoarthritis, unspecified; E03.9 Hypothyroidism, unspecified; I10 Essential (primary) hypertension; F41.9 Anxiety disorder, unspecified; E78.5 Hyperlipidemia, unspecified; R09.02 Hypoxemia; R00.0 Tachycardia, unspecified; F25.9 Schizoaffective disorder, unspecified; R79.89 Other specified abnormal findings of blood chemistry
CPT/HCPCS: 36415; 71010; 71275; 74000; 76775; 80048; 80053; 80061; 81003; 82378; 82550; 82553; 82962; 83880; 84439; 84443; 84481; 84484; 85025; 85610; 85730; 86300; 86301; 86304; 86850; 86900; 86901; 87040; 87070; 87081; 87086; 87181; 87205; 87493; 93005; 93306; 93970; 94664; J1815

== ENCOUNTER 2016-11-22 11:38 | Inpatient (IN) | payer MEDICARE, MEDICAID ==
[~2016-11-22] VITALS: Ht 165.1 cm; Wt 97.5 kg
[~2016-11-22 11:38] MED LIST: ATORVASTATIN CA20 MG ORAL; COLACE100 MG ORAL; DEPAKOTE250 MG PO; LEVOTHYROXINE75 MCG ORAL; LISINOPRIL10 MG ORAL; METRONIDAZOLE500 MG ORAL; NEURONTIN400 MG ORAL; NITROFURANTOIN100 M2 ORAL; QUETIAPINE FUMA25 MG ORAL
[2016-11-22] MEDS ORDERED: QUETIAPINE FUMA25 MG ORAL (11:50)
[2016-11-22] MEDS ORDERED: TYLENOL650 MG/20. ORAL (11:50)
[2016-11-22] MEDS ORDERED: DUONEB 0.5-3(2.53 ML HHN ×2 (11:50→16:51)
[2016-11-22 11:55] VITALS: BP 123/74
--- NOTE | 2016-11-22 12:08 | Emergency Room Report ---
History of Present Illness General Chief Complaint: Gastrointestinal Bleed Source: Medical Record Present Illness HPI Patient presents with complaints of rectal bleeding Patient reports that she was mildly constipated for the past few days Also feeling generally weak Denies any vomiting Denies any abdominal pain at this time denies any fevers or chills Patient was noted to have bright red blood per rectum at the nursing facility and sent in for further evaluation Allergies: Coded Allergies: PENICILLINS (Verified Allergy, Unknown, 10/07/16) Patient History Past Medical History: see triage record Pertinent Family History: none Reviewed Nursing Documentation: PMH: Agreed, PSxH: Agreed Nursing Documentation-PMH Hx Hypertension: Yes Hx Diabetes: Yes Hx Cancer: No Hx Gastrointestinal Problems: No Hx Fatigue: Yes Review of Systems All Other Systems: negative except mentioned in HPI Physical Exam Vital Signs Date Time Temp Pulse Resp B/P Pulse Ox O2 Delivery O2 Flow Rate FiO2 11/22/16 11:38 97.9 90 16 123/74 97 Nasal Cannula 2.0 Sp02 EP Interpretation: reviewed, normal General Appearance: alert Head: normocephalic, atraumatic Eyes: bilateral eye EOMI, bilateral eye PERRL ENT: hearing grossly normal, normal pharynx, TMs + canals normal, uvula midline Neck: full range of motion, supple, no meningismus, no bony tend Respiratory: lungs clear, normal breath sounds, no rhonchi, no respiratory distress, no retraction, no accessory muscle use Cardiovascular #1: normal peripheral pulses, regular rate, rhythm, no gallop, no JVD, no murmur Gastrointestinal: normal bowel sounds, non tender, soft, no mass, no organomegaly, non-distended, no guarding, no hernia, no pulsatile mass, no rebound Musculoskeletal: normal inspection Neurologic: oriented x3, responsive, patient transporter III-XII nml as tested, motor strength/ tone normal, sensory intact Psychiatric: mood/affect normal Skin: palpation normal, other - Edema bilaterally Lymphatic: no adenopathy Medical Decision Making Diagnostic Impression: Primary Impression: Gastrointestinal hemorrhage ER Course Patient is a fairly complex patient with multiple differential to consideration including but not limited to cardiac cardiopulmonary and vascular emergencies Gastrointestinal hemorrhage is also considered Patient remained hemodynamically stable Given the large amount of blood per stool patient required admission for further inpatient care Labs Test 11/22/16 12:03 White Blood Count 5.4 K/UL (4.8-10.8) Red Blood Count 4.44 M/UL (4.20-5.40) Hemoglobin 12.6 G/DL (12.0-16.0) Hematocrit 39.3 % (37.0-47.0) Mean Corpuscular Volume 88 FL (80-99) Mean Corpuscular Hemoglobin 28.4 PG (27.0-31.0) Mean Corpuscular Hemoglobin Concent 32.1 G/DL (32.0-36.0) Red Cell Distribution Width 12.4 % (11.6-14.8) Platelet Count 249 K/UL (150-450) Mean Platelet Volume 6.6 FL (6.5-10.1) Neutrophils (%) (Auto) 52.5 % (45.0-75.0) Lymphocytes (%) (Auto) 36.7 % (20.0-45.0) Monocytes (%) (Auto) 9.9 % (1.0-10.0) Eosinophils (%) (Auto) 0.6 % (0.0-3.0) Basophils (%) (Auto) 0.4 % (0.0-2.0) Prothrombin Time 10.7 SEC (9.30-11.50) Prothromb Time International Ratio 1.1 (0.9-1.1) Activated Partial Thromboplast Time 26 SEC (23-33) Sodium Level 143 mEQ/L (135-145) Potassium Level 4.1 mEQ/L (3.4-4.9) Chloride Level 99 mEQ/L (98-107) Carbon Dioxide Level 29 mEQ/L (20-30) Anion Gap 15 (5-15) Blood Urea Nitrogen 11 mg/dL (7-23) Creatinine 0.6 mg/dL (0.5-0.9) Estimat Glomerular Filtration Rate > 60 mL/min (>60) Glucose Level 98 mg/dL (74-106) Calcium Level 9.3 mg/dL (8.6-10.2) Total Bilirubin 0.2 mg/dL (0.0-1.2) Aspartate Amino Transf (AST/SGOT) 10 U/L (5-40) Alanine Aminotransferase (ALT/SGPT) 9 U/L (3-33) Alkaline Phosphatase 86 U/L (35-104) Total Creatine Kinase 35 U/L (26-140) Creatine Kinase MB < 1.5 ng/mL (< 3.8) Creatine Kinase MB Relative Index 4.2 Troponin I < 0.30 ng/mL (<=0.30) Total Protein 6.4 g/dL (6.6-8.7) Albumin 3.8 g/dL (3.5-5.2) Globulin 2.6 g/dL Albumin/Globulin Ratio 1.4 (1.0-2.7) Rhythm Strip Diag. Results EP Interpretation: yes Rate: 66 Rhythm: NSR, no PVC's, no ectopy Chest X-Ray Diagnostic Results EP Interpretation: Yes Findings: no consolidation, no effusion, no pneumothorax Number of Views: 1 Last Vital Signs Date Time Temp Pulse Resp B/P Pulse Ox O2 Delivery O2 Flow Rate FiO2 11/22/16 11:55 16 123/74 97 Nasal Cannula 2.0 11/22/16 11:38 97.9 90 Status: improved Disposition: ADMITTED INPATIENT Condition: Serious DOE BAILEY D.O. Nov 22, 2016 12:08
[2016-11-22 12:13] LABS: BASOPHILS % (AUTO) 0.4 % (0.0-2.0); EOSINOPHILS % (AUTO) 0.6 % (0.0-3.0); LYMPHOCYTES % (AUTO) 36.7 % (20.0-45.0); MEAN CORPUSCULAR HEMOGLOBIN 28.4 PG (27.0-31.0); MEAN CORPUSCULAR HGB CONC 32.1 G/DL (32.0-36.0); MEAN CORPUSCULAR VOLUME 88 FL (80-99); MEAN PLATELET VOLUME 6.6 FL (6.5-10.1); MONOCYTES % (AUTO) 9.9 % (1.0-10.0); NEUTROPHILS % (AUTO) 52.5 % (45.0-75.0); PLATELET COUNT 249 K/UL (150-450); RED BLOOD COUNT 4.44 M/UL (4.20-5.40); RED CELL DISTRIBUTION WIDTH 12.4 % (11.6-14.8); WHITE BLOOD COUNT 5.4 K/UL (4.8-10.8)
[2016-11-22 12:22] LABS: INR 1.1 (0.9-1.1); PROTHROMBIN TIME 10.7 SEC (9.30-11.50)
[2016-11-22 12:28] LABS: TROPONIN I < 0.30 ng/mL (<=0.30)
[2016-11-22 12:31] LABS: ALANINE AMINOTRANSFERASE 9 U/L (3-33); ALBUMIN/GLOBULIN RATIO 1.4 (1.0-2.7); ANION GAP 15 (5-15); ASPARTATE AMINO TRANSFERASE 10 U/L (5-40); CALCIUM 9.3 mg/dL (8.6-10.2); CARBON DIOXIDE 29 mEQ/L (20-30); CHLORIDE 99 mEQ/L (98-107); CREATININE 0.6 mg/dL (0.5-0.9); GLOMERULAR FILTRATION RATE > 60 mL/min (>60); HEMOLYSIS 0; POTASSIUM 4.1 mEQ/L (3.4-4.9); SODIUM 143 mEQ/L (135-145); TOTAL PROTEIN 6.4 g/dL (6.6-8.7)
[2016-11-22 12:42] LABS: CKMB < 1.5 ng/mL (< 3.8)
[2016-11-22 13:24] VITALS: BP 145/72
[2016-11-22 14:26] VITALS: BP 114/72
[2016-11-22 15:41] VITALS: BP 154/90
[2016-11-22] MEDS ORDERED: MILK OF MA400 MG/51 ORAL (16:51)
[2016-11-22] MEDS ORDERED: FLEET ENEMA133 ML RECTAL (16:51)
[2016-11-22] MEDS ORDERED: DULCOLAX10 MG RC (16:51)
[2016-11-22] MEDS ORDERED: NEURONTIN100 MG ORAL (16:51)
[2016-11-22] MEDS: D5NS 1,000 ML IV SCH (17:12)
[2016-11-22] MEDS ORDERED: Milk of Magnesia 30ml Ud ORAL PRN (17:45)
[2016-11-22] MEDS ORDERED: Fleet's Enema 133ml RECTAL PRN (17:45)
[2016-11-22 20:00] VITALS: BP 154/90
[2016-11-22] MEDS: Atorvastatin 20mg tab ORAL SCH (20:52)
--- NOTE | 2016-11-22 21:26 | History & Physical ---
History and Physical History & Physicial seen and examined. Dictation completed. Daniel Hamlin MD Nov 22, 2016 21:26
[2016-11-22] MEDS: DuoNeb 0.5-3(2.5)mg/3ml neb HHN PRN (22:04)
--- NOTE | 2016-11-22 22:48 | History and Physical Report ---
DATE OF ADMISSION: 11/22/2016 SOURCE OF INFORMATION: Patient and EMR. HISTORY OF PRESENT ILLNESS: The patient is a pleasant 70-year-old female. She had weakness and episodes of passing red blood per rectum at the [facility] facility. The patient had been reported that bleeding had happened at least two times within one day. REVIEW OF SYSTEMS: Negative for loss of consciousness, negative for dizziness, negative for chest pain or shortness of breath, negative for diarrhea, constipation, or melena. Severe pain in the extremities. PAST MEDICAL HISTORY: Hyperlipidemia, psychiatric disease, hypothyroidism, and hypertension. PAST SURGICAL HISTORY: History of hysterectomy . FAMILY HISTORY: Reviewed and noncontributory. SOCIAL HISTORY: Negative for illicit drug abuse. Negative for alcohol abuse or smoking. The patient is a resident of [facility] facility. ALLERGIES: To penicillin. CODE STATUS: Full code. MEDICATIONS: Hospital medications reviewed as follows: Lisinopril, levothyroxine, gabapentin, atorvastatin, Seroquel, and Tylenol. PHYSICAL EXAMINATION: VITAL SIGNS: Blood pressure 120/80, temperature 98.2, pulse oximetry 98% on room air, pulse rate 85, and respiratory rate 18. HEAD AND NECK: Atraumatic and normocephalic. CHEST: Clear to auscultation. HEART: S1 and S2. Regular rate and rhythm. ABDOMEN: Soft. No organomegaly. MUSCULOSKELETAL: No gross lateralized motor deficit. NEUROLOGIC: The patient is awake with open eyes. on evaluation, no gross cranial nerve deficit is appreciated. LABORATORY DATA: WBC 5.4, hemoglobin 12.6, and platelets 249,000. Sodium 143, potassium 4.1, BUN 11, and creatinine 0.6. ALT and AST are within normal limits. PT, PTT, and INR are normal. ASSESSMENT: 1. Passing red blood per rectum/lower gastrointestinal bleed. 2. Hypertension. 3. Hypothyroidism. 4. Hyperlipidemia. 5. Psychiatric disorder. 6. Gastrointestinal and deep vein thrombosis prophylaxis. PLAN: Plan of care, we will type and cross two units in hope for the transfusion. Keep the patient NPO except medications. GI, Dr. Lainez, has been notified. We will obtain CBC, CMP, and hemoglobin and hematocrit q.12 h. We will check a urine analysis. Joonammaferoz Hamlin M.D. DR: PREETHI JOB#: [id number] CC:
[2016-11-23] VITALS: BP 140/76
[2016-11-23 04:00] VITALS: BP 154/88
[2016-11-23] MEDS: D5NS 1,000 ML IV SCH ×2 (05:44→16:14)
[2016-11-23 07:41] LABS: BASOPHILS % (AUTO) 0.5 % (0.0-2.0); LYMPHOCYTES % (AUTO) 35.7 % (20.0-45.0); MEAN CORPUSCULAR HEMOGLOBIN 28.7 PG (27.0-31.0); MEAN CORPUSCULAR VOLUME 90 FL (80-99); MEAN PLATELET VOLUME 6.6 FL (6.5-10.1); MONOCYTES % (AUTO) 12.8 % (1.0-10.0); PLATELET COUNT 228 K/UL (150-450); RED BLOOD COUNT 4.48 M/UL (4.20-5.40); RED CELL DISTRIBUTION WIDTH 12.5 % (11.6-14.8); WHITE BLOOD COUNT 4.7 K/UL (4.8-10.8)
[2016-11-23 08:00] VITALS: BP 158/89
[2016-11-23] MEDS: Docusate 100mg tablet ORAL SCH (08:10)
[2016-11-23] MEDS: Lisinopril 10mg tab ORAL SCH (08:10)
[2016-11-23 08:12] LABS: ALANINE AMINOTRANSFERASE 10 U/L (3-33); ALBUMIN/GLOBULIN RATIO 1.4 (1.0-2.7); ANION GAP 11 (5-15); ASPARTATE AMINO TRANSFERASE 11 U/L (5-40); CALCIUM 8.9 mg/dL (8.6-10.2); CARBON DIOXIDE 34 mEQ/L (20-30); CHLORIDE 103 mEQ/L (98-107); CHOLESTEROL 140 mg/dL (< 200); CHOLESTEROL/HDL RATIO 3.2 (3.3-4.4); CREATININE 0.7 mg/dL (0.5-0.9); GLOMERULAR FILTRATION RATE > 60 mL/min (>60); HEMOLYSIS 4; LDL CHOLESTEROL (CALC.) 64 mg/dL (60-99); POTASSIUM 4.1 mEQ/L (3.4-4.9); SODIUM 148 mEQ/L (135-145); TOTAL PROTEIN 6.3 g/dL (6.6-8.7)
[2016-11-23] MEDS: DuoNeb 0.5-3(2.5)mg/3ml neb HHN PRN (08:27)
[2016-11-23] MEDS ORDERED: D5NS 1000ml IV ONE (08:57)
[2016-11-23 12:00] VITALS: BP 135/92
[2016-11-23] MEDS ORDERED: Nulytely 4L ORAL ONE (14:00)
[2016-11-23] MEDS ORDERED: Bisacodyl EC 5mg tab ORAL ONE (14:00)
--- NOTE | 2016-11-23 15:29 | Internal Med Progress Note ---
Subjective Date of Service: Nov 23, 2016 Physician Name Quesada,Jacob Attending Physician Daniel Hamlin MD Current Medications Medications (Trade) Dose Ordered Sig/Domingo Route PRN Reason Start Time Stop Time Status Last Admin Dose Admin Acetaminophen (Tylenol) 650 mg Q4H PRN ORAL Mild Pain/Temp > 100.5 11/22/16 17:45 12/22/16 17:44 11/23/16 08:10 Albuterol/ Ipratropium (DuoNeb 0.5-3(2.5)mg/3ml) 3 ml Q6H PRN HHN Shortness of Breath 11/22/16 17:45 11/27/16 17:44 11/23/16 08:27 Atorvastatin Calcium (Lipitor) 20 mg BEDTIME ORAL 11/22/16 21:00 12/22/16 20:59 11/22/16 20:52 Bisacodyl (Dulcolax) 10 mg DAILYPRN PRN RECTAL Constipation 11/22/16 17:45 12/22/16 17:44 Dextrose (Dextrose 50%) STAT PRN IV Hypoglycemia 11/22/16 14:00 12/22/16 13:59 Dextrose/Sodium Chloride (D5ns) 1,000 ml @ 80 mls/hr [id number] IV 11/22/16 14:45 12/22/16 14:44 11/23/16 05:44 Divalproex Sodium (Depakote) 250 mg Q12HR ORAL 11/22/16 21:00 12/22/16 20:59 11/23/16 08:08 Docusate Sodium (Colace) 100 mg DAILY ORAL 11/23/16 09:00 12/23/16 08:59 11/23/16 08:10 Gabapentin (Neurontin) 100 mg DAILY ORAL 11/23/16 09:00 12/23/16 08:59 11/23/16 08:11 Levothyroxine Sodium (Synthroid) 75 mcg ACBREAKFAST ORAL 11/23/16 06:30 12/23/16 06:29 11/23/16 05:45 Lisinopril (Zestril) 10 mg DAILY ORAL 11/23/16 09:00 12/23/16 08:59 11/23/16 08:10 Magnesium Hydroxide (Mom) 30 ml DAILYPRN PRN ORAL Constipation 11/22/16 17:45 12/22/16 17:44 11/22/16 20:52 Pantoprazole (Protonix) 40 mg EVERY 12 HOURS ORAL 11/22/16 21:00 12/22/16 20:59 11/23/16 08:08 Quetiapine Fumarate (SEROquel) 25 mg DAILY ORAL 11/23/16 09:00 12/23/16 08:59 11/23/16 08:10 Sodium Phosphate (Fleet's Sodium Phosl Enema) 133 ml DAILYPRN PRN RECTAL Constipation 11/22/16 17:45 12/22/16 17:44 11/22/16 22:50 Allergies: Coded Allergies: PENICILLINS (Verified Allergy, Unknown, 10/07/16) ROS Limited/Unobtainable: No Constitutional: Reports: no symptoms HEENT: Reports: no symptoms Cardiovascular: Reports: no symptoms Respiratory: Reports: no symptoms Gastrointestinal/Abdominal: Reports: no symptoms Genitourinary: Reports: other - rectal bleeding Neurologic/Psychiatric: Reports: no symptoms Subjective 70 YO F admitted with rectal bleeding. Cover for [facility]-Dr Hamlin. Endoscopy and colonoscopy scheduled for 11/24/16. Objective Last Vital Signs Date Time Temp Pulse Resp B/P Pulse Ox O2 Delivery O2 Flow Rate FiO2 11/23/16 12:00 97.1 96 20 135/92 97 Nasal Cannula 2.0 11/23/16 08:35 28 General Appearance: WD/WN, no apparent distress, alert EENT: PERRL/EOMI, normal ENT inspection, TMs normal Neck: non-tender, normal alignment, supple Cardiovascular: normal peripheral pulses, normal rate, regular rhythm, no gallop/murmur, no JVD Respiratory/Chest: chest wall non-tender, lungs clear, normal breath sounds, no respiratory distress, no accessory muscle use Abdomen: normal bowel sounds, non tender, soft, no organomegaly, no mass Extremities: normal range of motion, non-tender 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 Skin: normal pigmentation, warm/dry Laboratory Tests Test 11/23/16 06:48 White Blood Count 4.7 K/UL (4.8-10.8) L Red Blood Count 4.48 M/UL (4.20-5.40) Hemoglobin 12.9 G/DL (12.0-16.0) Hematocrit 40.2 % (37.0-47.0) Mean Corpuscular Volume 90 FL (80-99) Mean Corpuscular Hemoglobin 28.7 PG (27.0-31.0) Mean Corpuscular Hemoglobin Concent 32.0 G/DL (32.0-36.0) Red Cell Distribution Width 12.5 % (11.6-14.8) Platelet Count 228 K/UL (150-450) Mean Platelet Volume 6.6 FL (6.5-10.1) Neutrophils (%) (Auto) 50.0 % (45.0-75.0) Lymphocytes (%) (Auto) 35.7 % (20.0-45.0) Monocytes (%) (Auto) 12.8 % (1.0-10.0) H Eosinophils (%) (Auto) 1.0 % (0.0-3.0) Basophils (%) (Auto) 0.5 % (0.0-2.0) Sodium Level 148 mEQ/L (135-145) H Potassium Level 4.1 mEQ/L (3.4-4.9) Chloride Level 103 mEQ/L (98-107) Carbon Dioxide Level 34 mEQ/L (20-30) H Anion Gap 11 (5-15) Blood Urea Nitrogen 8 mg/dL (7-23) Creatinine 0.7 mg/dL (0.5-0.9) Estimat Glomerular Filtration Rate > 60 mL/min (>60) Glucose Level 129 mg/dL (74-106) H Hemoglobin A1c 5.4 % (< 6.0) Calcium Level 8.9 mg/dL (8.6-10.2) Total Bilirubin 0.2 mg/dL (0.0-1.2) Aspartate Amino Transf (AST/SGOT) 11 U/L (5-40) Alanine Aminotransferase (ALT/SGPT) 10 U/L (3-33) Alkaline Phosphatase 85 U/L (35-104) Total Protein 6.3 g/dL (6.6-8.7) L Albumin 3.7 g/dL (3.5-5.2) Globulin 2.6 g/dL Albumin/Globulin Ratio 1.4 (1.0-2.7) Triglycerides Level 161 mg/dL (< 150) H Cholesterol Level 140 mg/dL (< 200) LDL Cholesterol 64 mg/dL (60-99) HDL Cholesterol 44 mg/dL (> 60) Cholesterol/HDL Ratio 3.2 (3.3-4.4) L Thyroid Stimulating Hormone (TSH) 1.820 uIU/mL (0.300-4.500) Intake and Output 11/22/16 11/23/16 19:00 07:00 Intake Total 80 ml 640 ml Balance 80 ml 640 ml Intake Oral 0 ml IV Total 80 ml 640 ml # Voids 3 # Bowel Movements 3 Assessment/Plan Problem List: (1) Rectal hemorrhage Assessment & Plan: See GI note. Colonoscopy scheduled 11/24/16. (2) HTN (hypertension) Assessment & Plan: Continue lisinopril (3) Hypercholesteremia Assessment & Plan: cont lipitor. (4) Gastrointestinal hemorrhage Assessment & Plan: see GI note. (5) Schizoaffective disorder Status: not improved JACOB QUESADA Nov 23, 2016 15:29
[2016-11-23 16:00] VITALS: BP 159/103
[2016-11-23 19:00] VITALS: BP 149/92
[2016-11-23] MEDS: Atorvastatin 20mg tab ORAL SCH (20:47)
[2016-11-24] VITALS (9 sets, daily range): BP systolic 129–158; BP diastolic 68–89
[2016-11-24] MEDS: D5NS 1,000 ML IV SCH ×2 (05:02→16:45)
[2016-11-24 06:56] LABS: BASOPHILS % (AUTO) 0.2 % (0.0-2.0); EOSINOPHILS % (AUTO) 1.4 % (0.0-3.0); LYMPHOCYTES % (AUTO) 30.6 % (20.0-45.0); MEAN CORPUSCULAR HEMOGLOBIN 28.8 PG (27.0-31.0); MEAN CORPUSCULAR HGB CONC 32.4 G/DL (32.0-36.0); MEAN CORPUSCULAR VOLUME 89 FL (80-99); MEAN PLATELET VOLUME 6.6 FL (6.5-10.1); MONOCYTES % (AUTO) 11.9 % (1.0-10.0); NEUTROPHILS % (AUTO) 55.9 % (45.0-75.0); PLATELET COUNT 238 K/UL (150-450); RED BLOOD COUNT 4.64 M/UL (4.20-5.40); RED CELL DISTRIBUTION WIDTH 12.5 % (11.6-14.8); WHITE BLOOD COUNT 6.1 K/UL (4.8-10.8)
[2016-11-24] MEDS ORDERED: Albuterol ud Inhalation ONE (06:58)
[2016-11-24] MEDS ORDERED: NS 550ML IV ONE (07:00)
[2016-11-24] MEDS ORDERED: Propofol 10mg/ml 20ml IV ONE (07:00)
[2016-11-24 07:01] LABS: PROTHROMBIN TIME 10.6 SEC (9.30-11.50)
[2016-11-24 07:05] LABS: ALANINE AMINOTRANSFERASE 14 U/L (3-33); ALBUMIN/GLOBULIN RATIO 1.5 (1.0-2.7); ANION GAP 13 (5-15); ASPARTATE AMINO TRANSFERASE 13 U/L (5-40); CARBON DIOXIDE 30 mEQ/L (20-30); CHLORIDE 105 mEQ/L (98-107); CREATININE 0.6 mg/dL (0.5-0.9); GLOMERULAR FILTRATION RATE > 60 mL/min (>60); HEMOLYSIS 2; POTASSIUM 3.8 mEQ/L (3.4-4.9); SODIUM 148 mEQ/L (135-145); TOTAL PROTEIN 6.4 g/dL (6.6-8.7)
--- NOTE | 2016-11-24 07:12 | Pre-Procedure Note/Attestation ---
Pre-Procedure Note/Attestation Complete Prior to Procedure Planned Procedure: not applicable Procedure Narrative: egd/colon Indications for Procedure Pre-Operative Diagnosis: anemia Attestation I attest that I discussed the nature of the procedure; its benefits; risks and complications; and alternatives (and the risks and benefits of such alternatives ), prior to the procedure, with the patient (or the patient's legal software support representative). I attest that, if there was a reasonable possibility of needing a blood transfusion, the patient (or the patient's legal software support representative) was given the [facility] standardized written summary, pursuant to the [place] Blood Safety Act ([place] Health and Safety Code # 1645, as amended). I attest that I re-evaluated the patient just prior to the surgery and that there has been no change in the patient's H&P, except as documented below: ALIN BHATIA Nov 24, 2016 07:12
[2016-11-24] MEDS ORDERED: fentaNYL 100 mcg/2 mL IV PRN (07:30)
--- NOTE | 2016-11-24 07:32 | Anethesia Preoperative Eval ---
Anesthesia Pre-op PMH/ROS General Date of Evaluation: Nov 24, 2016 Time of Evaluation: 07:00 Anesthesiologist: Christiano ASA Score: ASA 4 Mallampati Score Class I : Soft palate, uvula, fauces, pillars visible Class II: Soft palate, uvula, fauces visible Class III: Soft palate, base of uvula visible Class IV: Only hard plate visible Mallampati Classification: Class III Surgeon: Fatou Diagnosis: GI bleed Surgical Procedure: Colonoscopy Allergies: Coded Allergies: PENICILLINS (Verified Allergy, Unknown, 10/07/16) Past Medical History Cardiovascular: Reports: HTN Pulmonary: Reports: COPD Neurologic/Psychiatric: Reports: depression/anxiety - Bipolar Endocrine: Reports: DM, hypothyroidism PM Narrative: DM, HTN, COPD, chronic bronchitis, hypothyroid Anesthesia Pre-op Phys. Exam Physician Exam Last Vital Signs Date Time Temp Pulse Resp B/P Pulse Ox O2 Delivery O2 Flow Rate FiO2 11/24/16 04:00 97.8 80 20 149/75 94 Room Air 11/23/16 20:06 2.0 28 Constitutional: NAD Neurologic: CN 2-12 intact Cardiovascular: RRR, other Respiratory: other - Rhonchi bilateally Gastrointestinal: S/NT/ND Airway Exam Mallampati Score: Class III MO: full ROM: full Teeth: missing Anesthesia Pre-op A/P Labs Hematology Test 11/24/16 05:40 White Blood Count 6.1 K/UL (4.8-10.8) Red Blood Count 4.64 M/UL (4.20-5.40) Hemoglobin 13.4 G/DL (12.0-16.0) Hematocrit 41.2 % (37.0-47.0) Mean Corpuscular Volume 89 FL (80-99) Mean Corpuscular Hemoglobin 28.8 PG (27.0-31.0) Mean Corpuscular Hemoglobin Concent 32.4 G/DL (32.0-36.0) Red Cell Distribution Width 12.5 % (11.6-14.8) Platelet Count 238 K/UL (150-450) Mean Platelet Volume 6.6 FL (6.5-10.1) Neutrophils (%) (Auto) 55.9 % (45.0-75.0) Lymphocytes (%) (Auto) 30.6 % (20.0-45.0) Monocytes (%) (Auto) 11.9 % (1.0-10.0) H Eosinophils (%) (Auto) 1.4 % (0.0-3.0) Basophils (%) (Auto) 0.2 % (0.0-2.0) Coagulation Test 11/24/16 05:40 Prothrombin Time 10.6 SEC (9.30-11.50) Prothromb Time International Ratio 1.0 (0.9-1.1) Activated Partial Thromboplast Time 26 SEC (23-33) Chemistry Test 11/24/16 05:40 Sodium Level 148 mEQ/L (135-145) H Potassium Level 3.8 mEQ/L (3.4-4.9) Chloride Level 105 mEQ/L (98-107) Carbon Dioxide Level 30 mEQ/L (20-30) Anion Gap 13 (5-15) Blood Urea Nitrogen 5 mg/dL (7-23) L Creatinine 0.6 mg/dL (0.5-0.9) Estimat Glomerular Filtration Rate > 60 mL/min (>60) Glucose Level 116 mg/dL (74-106) H Calcium Level 9.0 mg/dL (8.6-10.2) Total Bilirubin 0.3 mg/dL (0.0-1.2) Aspartate Amino Transf (AST/SGOT) 13 U/L (5-40) Alanine Aminotransferase (ALT/SGPT) 14 U/L (3-33) Alkaline Phosphatase 86 U/L (35-104) Total Protein 6.4 g/dL (6.6-8.7) L Albumin 3.9 g/dL (3.5-5.2) Globulin 2.5 g/dL Albumin/Globulin Ratio 1.5 (1.0-2.7) Carcinoembryonic Antigen 2.9 ng/mL Risk Assessment & Plan Assessment: GI bleed Plan: GA, TIVA Status Change Before Surgery: No Pre-Antibiotics Drug: None KELSI DAVILA M.D. Nov 24, 2016 07:32
--- NOTE | 2016-11-24 07:33 | Endoscopy Procedure Note ---
Endoscopy Procedure Note Indication for Procedure: gib Procedures Performed: colonoscopy Operative Findings/Diagnosis: diverticulosis Specimen: yes Pt Tolerated Procedure Well: Yes Estimated Blood Loss: none Anesthesiologist: maria de jesus Anesthesia: MAC Implant(s) used?: No 50 yrs or older w/o bx or poly: Not Applicable 10yrs. F/U not recommended: Not Applicable ALIN BHATIA Nov 24, 2016 07:33
--- NOTE | 2016-11-24 07:33 | Immediate Post-Op Evaluation ---
Immediate Post-Op Evalulation Immediate Post-Op Evalulation Procedure: Colonoscopy Date of Evaluation: Nov 24, 2016 Time of Evaluation: 07:50 IV Fluids: 200 Blood Pressure Systolic: 133 Blood Pressure Diastolic: 71 Pulse Rate: 89 Respiratory Rate: 10 O2 Sat by Pulse Oximetry: 97 Temperature (Fahrenheit): 98.3 Pain Score (1-10): 0 Nausea: No Vomiting: No Complications No complication Patient Status: awake, patent, none Hydration Status: adequate Drug: None KELSI DAVILA M.D. Nov 24, 2016 07:33
--- NOTE | 2016-11-24 08:43 | Diagnostic Imaging Report ---
Clinical history: Chest pain Technique: Portable AP chest radiograph was obtained. Comparison: None Findings: Lung volumes are low. No lobar or segmental consolidation is seen. There is no pneumonia or pulmonary edema. There is no pleural effusion or pneumothorax. The cardiac and mediastinal silhouettes are normal in appearance. The bony thorax is unremarkable. Atherosclerotic vascular disease is noted involving the aortic arch. Impression: No acute cardiopulmonary process.
--- NOTE | 2016-11-24 08:59 | Consultation ---
DATE OF CONSULTATION: 11/23/2016 CHIEF COMPLAINT: Rectal bleeding. HISTORY OF PRESENT ILLNESS: The patient is a 70-year-old female with multiple medical problems, . She lives in a [facility]ci, who was brought to the hospital with rectal bleeding. The patient has no prior history of colonoscopy. No abdominal pain at this time. PAST MEDICAL HISTORY: History of hypertension, hypercholesterolemia, bronchitis, history of arthritis, diabetes, hypothyroidism, schizophrenia, and anemia. PAST SURGICAL HISTORY: Hysterectomy. MEDICATIONS: Please see medication reconciliation. ALLERGIES: To penicillin. SOCIAL HISTORY: Currently lives in fci. No recent history of tobacco, alcohol, or IV drug abuse. REVIEW OF SYSTEMS: A 10-point review of system was performed and pertinent positives in history of present illness. PHYSICAL EXAMINATION: GENERAL: This is a well-developed female, in no acute distress. VITAL SIGNS: Temperature 97.4 degrees, pulse is 91, respirations 20, and blood pressure is 158/89. HEENT: Normocephalic and atraumatic. Sclerae anicteric. NECK: Supple without adenopathy. CARDIOVASCULAR: Regular rate and rhythm. Plus S1 and S2. LUNGS: Clear to auscultation bilaterally. ABDOMEN: Positive bowel sounds. Soft and nontender. No rebound. No guarding. No peritoneal sign. EXTREMITIES: No cyanosis, no clubbing, and no edema. LABORATORY DATA: White count 4.7, hemoglobin 12, hematocrit 40, and platelets are 228,000. ASSESSMENT AND PLAN: The patient is a 70-year-old female with rectal bleeding. No prior history of GI workup. Plan to do an endoscopy and colonoscopy tomorrow. The patient was informed of the risks and benefits of the procedure and informed to her with the presence of the nurse and the patient agreed to it, so we will plan to do an endoscopy and colonoscopy tomorrow. I want to thank Dr. Hamlin for this kind referral. Al Lainez M.D. DR: ELSIE JOB#: [id number] CC: Daniel Hamlin M.D.
[2016-11-24] MEDS: Docusate 100mg tablet ORAL SCH (09:00)
[2016-11-24] MEDS: Lisinopril 10mg tab ORAL SCH (09:58)
[2016-11-24] MEDS ORDERED: Levofloxacin 500mg tab ORAL ONE (10:30)
[2016-11-24] MEDS ORDERED: D5NS 1000ml IV ONE (10:44)
[2016-11-24] MEDS: DuoNeb 0.5-3(2.5)mg/3ml neb HHN PRN ×2 (10:56→16:20)
--- NOTE | 2016-11-24 13:44 | General Progress Note ---
Assessment/Plan Status: stable Assessment/Plan 1. LGIB 2. Diverticulosis 3. Hypertension. 3. Hypothyroidism. 4. Hyperlipidemia. 5. Psychiatric disorder. 6. Bronchitis 6. Gastrointestinal and deep vein thrombosis prophylaxis. Post Colonoscopy stable bleeding will monitor as an outpatient Subjective ROS Limited/Unobtainable: No Constitutional: Reports: no symptoms HEENT: Reports: no symptoms Allergies: Coded Allergies: PENICILLINS (Verified Allergy, Unknown, 10/07/16) Objective Last 24 Hour Vital Signs Date Time Temp Pulse Resp B/P Pulse Ox O2 Delivery O2 Flow Rate FiO2 11/24/16 12:00 98.1 91 20 146/68 97 Nasal Cannula 2.0 11/24/16 11:03 88 20 99 Nasal Cannula 2.0 28 11/24/16 10:56 97 Nasal Cannula 2.0 28 11/24/16 10:56 Nasal Cannula 2.0 28 11/24/16 10:56 85 20 95 Nasal Cannula 2.0 28 11/24/16 10:56 96 20 Nasal Cannula 2.0 11/24/16 09:58 143/82 11/24/16 08:10 97.7 95 18 143/82 92 Nasal Cannula 2.0 11/24/16 08:01 98.8 93 20 158/88 96 Nasal Cannula 2.0 11/24/16 07:50 95 20 156/89 96 Nasal Cannula 2.0 11/24/16 07:46 89 10 97 11/24/16 07:45 87 20 158/85 97 Nasal Cannula 2.0 11/24/16 07:40 98.8 87 20 133/71 97 Simple Mask 8.0 11/24/16 04:00 97.8 80 20 149/75 94 Room Air 11/24/16 00:00 97.2 69 20 138/69 95 Room Air 11/23/16 21:47 97.8 11/23/16 20:06 Nasal Cannula 2.0 28 11/23/16 20:05 97 Nasal Cannula 2.0 28 11/23/16 20:05 96 20 Nasal Cannula 2.0 28 11/23/16 19:00 97.8 80 18 149/92 97 Nasal Cannula 2.0 11/23/16 16:00 97.9 83 20 159/103 97 Room Air Intake and Output 11/23/16 11/24/16 19:00 07:00 Intake Total 895 ml 1482 ml Balance 895 ml 1482 ml Intake Oral 540 ml IV Total 895 ml 942 ml # Voids 3 10 # Bowel Movements 3 6 Laboratory Tests 11/24/16 05:40: White Blood Count 6.1, Red Blood Count 4.64, Hemoglobin 13.4, Hematocrit 41.2, Mean Corpuscular Volume 89, Mean Corpuscular Hemoglobin 28.8, Mean Corpuscular Hemoglobin Concent 32.4, Red Cell Distribution Width 12.5, Platelet Count 238, Mean Platelet Volume 6.6, Neutrophils (%) (Auto) 55.9, Lymphocytes (%) (Auto) 30.6, Monocytes (%) (Auto) 11.9H, Eosinophils (%) (Auto) 1.4, Basophils (%) ( Auto) 0.2, Prothrombin Time 10.6, Prothromb Time International Ratio 1.0, Activated Partial Thromboplast Time 26, Sodium Level 148H, Potassium Level 3.8, Chloride Level 105, Carbon Dioxide Level 30, Anion Gap 13, Blood Urea Nitrogen 5L, Creatinine 0.6, Estimat Glomerular Filtration Rate > 60, Glucose Level 116H , Calcium Level 9.0, Total Bilirubin 0.3, Aspartate Amino Transf (AST/SGOT) 13, Alanine Aminotransferase (ALT/SGPT) 14, Alkaline Phosphatase 86, Total Protein 6.4L, Albumin 3.9, Globulin 2.5, Albumin/Globulin Ratio 1.5, Carcinoembryonic Antigen 2.9 Height (Feet): 5 Height (Inches): 5.00 Weight (Pounds): 215 General Appearance: no apparent distress EENT: PERRL/EOMI Neck: supple Cardiovascular: normal rate Respiratory/Chest: rhonchi - bilaterally Abdomen: soft Extremities: non-tender Neurologic: oriented x 3 Daniel Hamlin MD Nov 24, 2016 13:44
[2016-11-24] MEDS ORDERED: LEVAQUIN250 M1 ORAL (13:57)
--- NOTE | 2016-11-24 20:28 | Procedure Note ---
DATE OF PROCEDURE: 11/24/2016 SURGEON: Al Lainez M.D. PROCEDURE: Colonoscopy with biopsy. ANESTHESIA: Garfield Alvarado M.D. INSTRUMENT: Olympus adult flexible colonoscope. INDICATION: Rectal bleeding. REASON FOR PROCEDURE: The procedure, risks, benefits, and possible consequences, including hemorrhage, aspiration, perforation and infection, and alternative treatments, were explained to the patient/legal guardian by Dr. Al Lainez and the patient/legal guardian understood and accepted these risks. PROCEDURE: After informed consent was obtained and the patient was adequately sedated, first rectal exam was performed, which was normal. Then, the scope was advanced from the rectum into the cecum, documented by appendiceal orifice, ileocecal valve, and upper quadrant palpation. Quality of prep was very good. The patient has evidence of one 4 mm polyp in the ascending colon removed with the cold biopsy forceps technique. The patient had evidence of diverticulosis throughout the colon, more on the left compared to right. Retroflexion of rectum showed evidence of internal hemorrhoids. SUMMARY FINDINGS: 1. One colonic polyp removed, see above for detail. 2. Diverticulosis. 3. Internal hemorrhoids. RECOMMENDATIONS: 1. Followup biopsy results. 2. Resume diet. 3. Repeat colonoscopy in five years. I want to thank Dr. Mario Espinal, for this kind referral. Al Lainez M.D. DR: BROOKLYN JOB#: [id number] CC: Mario Espinal D.O.
--- NOTE | 2016-11-25 00:07 | Cardiology Report ---
APPROVED REPORT EKG Measurement Heart [id number] Normal sinus rhythm Possible Left atrial enlargement Borderline ECG
--- NOTE | 2016-11-25 13:27 | Discharge Summary ---
Discharge Summary Hospital Course Date of Admission Nov 22, 2016 at 13:01 Date of Discharge Nov 24, 2016 at 19:15 Admitting Diagnosis GI Bleed HPI Jayne Razo is a 70 year old female who was admitted on Nov 22, 2016 at 13:01 for Gastointestinal Bleeding Hospital Course dc summary #[id number] Discharge Medications Continued Medications: Acetaminophen (Acetaminophen) 650 Mg/20.3 Ml Solution 650 MG ORAL EVERY 4 HOURS PRN for Mild Pain/Temp > 100.5, ML 0 Refills Atorvastatin Calcium* (Atorvastatin Calcium*) 20 Mg Tablet 20 MG ORAL BEDTIME, TAB Bisacodyl (Dulcolax) 10 Mg Supp.rect 10 MG RC PRN PRN for Constipation, SUPP Divalproex Sodium* (Depakote*) 250 Mg Tablet.dr 250 MG PO Q12HR, TAB Docusate Sodium* (Colace*) 100 Mg Capsule 100 MG ORAL DAILY, CAP Gabapentin* (Neurontin*) 100 Mg Capsule 100 MG ORAL DAILY, #15 CAP 0 Refills Ipratropium/Albuterol Sulfate (DuoNeb 0.5-3(2.5)mg/3ml) 3 Ml Ampul.neb 3 ML HHN Q6HR PRN for Shortness of Breath, EA Levothyroxine Sodium* (Levothyroxine Sodium*) 75 Mcg Tablet 75 MCG ORAL DAILY, TAB Take in the morning on an empty stomach, at least 30 minutes before food. Lisinopril* (Lisinopril*) 10 Mg Tablet 10 MG ORAL DAILY, TAB Magnesium Hydroxide* (Milk Of Magnesia*) 400 Mg/5 Ml Oral.susp 30 ML ORAL DAILY PRN for Constipation, ML Na Phos,M-B/Na Phos,Di-Ba* (Fleet Enema*) 133 Ml Enema 133 ML RECTAL DAILY PRN for Constipation, ML 0 Refills Quetiapine Fumarate* (Seroquel*) 25 Mg Tablet 25 MG ORAL DAILY, TAB Discharge Condition Upon Discharge: stable Discharge Disposition Patient was discharged to SNF/Subacute Facility(03) Discharge Diagnoses: Discharge Instructions Discharge Instructions Special Instructions I have been assigned to complete a D/C Summary on this account. I was not involved in the patient management Chiquita De La Garza NP ([place]anchtein) Nov 25, 2016 13:27
--- NOTE | 2016-11-26 02:38 | Discharge Summary 2 SIG ---
DATE OF ADMISSION: 11/22/2016 DATE OF DISCHARGE: 11/24/2016 REASON FOR ADMISSION: 70-year-old female with history of HTN and diabetes, came to the emergency room complaining of rectal bleeding. She reported she was mildly constipated in the last few days prior to rectal bleeding. She felt weak, She denied nausea, vomiting, abdominal pain. She denied fever and chills. The patient was noted to ahve bright red blood per rectum at the nursing facility and was sent for further evaluation. Workup in ED revealed no leukocytosis. Hemoglobin and hematocrit were stable: hemoglobin -12.6 and hematocrit -39.3. The patient was admitted for further management. ADMITTING DIAGNOSES: 1. Rectal bleeding. 2. Hypertension. 3. Hyperlipidemia. 4. History of psychiatric disorder. HOSPITAL STAY: The patient was admitted to the hospital. Initially, the patient was NPO on the IV fluids. GI consult was requested. The patient subsequently undergone gastrointestinal evaluation and colonoscopy with biopsy. During the colonoscopy, one colon polyp in ascending colon was removed, awaiting for biopsy results. Internal hemorrhoids noted. Diverticulosis noted without evidence of diverticulitis. Hemoglobin and hematocrit remained stable. No further episodes of rectal bleeding. The patient was stable for discharge per gastrointestinal specialist. Follow up with the results of colon biopsy. GI advised to have colonoscopy in five years. Blood pressure was managed with MADHAV inhibitor and was stable. Psychiatric medications resumed. Chest x-ray was negative for any acute cardiopulmonary pathology. Supplemental oxygen and pulmonary toilet provided as needed. Pulse oximetry stable on room air. Antitussive provided as needed. S/p treatment with empiric antibiotic. TSH was within normal limits. Levothyroxine was resumed. Lipid panel stable, statin continued. Venous duplex of bilateral lower extremities was negative. DVT, GI prophylaxis provided. Psychiatric medications resumed. The patient was stable for discharge. Follow up with results of polyp biopsy. DISCHARGE DIAGNOSIS: Rectal bleeding s/p colonoscopy Colon polyp, s/p removal and biopsy Diverticulosis without evidence of diverticulitis internal hemorrhoids HTN Hyperlipidemia Hypothyroidism Bronchitis Psych disorder DISCHARGE MEDICATIONS: See medication reconciliation list. DISCHARGE INSTRUCTIONS: The [facility] facility. Report if any further episode of rectal bleeding. Daniel Hamlin M.D. I have been assigned to dictate discharge summary on this account and I was not involved in the patient's management. Chiquita De La Garza (Vanchtein) NMilad DR: KYMBERLY JOB#: [id number] CC: [place]
--- NOTE | 2016-11-26 10:26 | Diagnostic Imaging Report ---
APPROVED REPORT CPT Code: 65600 Present Symptoms Comments: Pain BILATERAL: Imaging reveals a patent deep venous system bilaterally. There is no evidence of thrombus within the femoral, popliteal or tibial segments. The greater saphenous veins are also within normal limits. Doppler indicates normal spontaneous flow within these segments.
== END 2016-11-24 19:15 | DRG 379 ==
LOC: EDBD 11:38 → EMR 12:15 → EDBEDREQ 12:54 → 4E 13:01
PROC: 0DBK8ZZ Excision of Ascending Colon, Via Natural or Artificial Opening Endoscopic (ICD-10-PCS; principal; 2016-11-24 07:22)
DX: K92.2 Gastrointestinal hemorrhage, unspecified (principal); E11.9 Type 2 diabetes mellitus without complications; I10 Essential (primary) hypertension; E03.9 Hypothyroidism, unspecified; E78.5 Hyperlipidemia, unspecified; K57.90 Diverticulosis of intestine, part unspecified, without perforation or abscess without bleeding; Z88.0 Allergy status to penicillin; K64.8 Other hemorrhoids; D12.2 Benign neoplasm of ascending colon; J40 Bronchitis, not specified as acute or chronic; F99 Mental disorder, not otherwise specified
CPT/HCPCS: 36415; 71010; 80053; 80061; 82378; 82550; 82553; 82962; 83036; 84443; 84484; 85025; 85610; 85730; 86850; 86900; 86901; 86920; 87081; 93005; 93970; 94003; 94150; 94640; 94664; 94760; J7620